=== PATIENT | male | born 1945 | race Caucasian/White ===

== ENCOUNTER → 2016-10-19 | Outpatient (CLI) | payer BC ==
[~2016-10-19] MED LIST: ALBU0.5N2; ASPI-232 PO; CRD4 PO; FLUT1INH INH; FLVHFA110; HYDC25 PO; METO50TA7 PO; MONT1TAB5 PO; PRT40
--- NOTE | 2016-10-19 16:50 | DIAGNOSTIC IMAGING REPORT ---
CHEST 2 VIEWS ROUTINE CLINICAL HISTORY: J45.909 Asthmatic [id number] COMPARISON STUDY: No previous studies for comparison. FINDINGS: The cardiac and mediastinal contours are normal. There is no evidence of focal pulmonary consolidation. There is no evidence of failure. There is a suspected trace right pleural effusion..[ IMPRESSION: Trace right pleural effusion. No evidence of failure. No evidence of focal pulmonary consolidation. Electronically signed by: James Patricia M.D. 10/19/2016 4:48 PM Dictated Date/Time: 10/19/2016 4:48 PM
== END | disposition home or self-care (01) ==
LOC: C.RAD 16:06
PROVIDERS: ATTEND Internal Medicine
DX: J45.909 Unspecified asthma, uncomplicated (principal)

== ENCOUNTER → 2017-04-21 | Outpatient (CLI) | payer BC ==
[2017-04-21 17:39] LABS: BASO % 1.1 %; BASO ABS # 0.08 K/uL (0-0.2); COMPLETE YES; EOS % 3.3 %; HEMATOCRIT 48.6 % (42-52); IG% 0.1 %; LYMPH % 21.6 %; LYMPH ABS # 1.56 K/uL (1.2-3.4); MEAN CELL VOLUME 75.1 fL (80-100); MEAN CORPUSCULAR HEMOGLOBIN 24.1 pg (25-34); MEAN CORPUSCULAR HGB CONC 32.1 g/dl (32-36); MEAN PLATELET VOLUME 10.5 fL (7.4-10.4); MONO % 7.8 %; NEUT % 66.1 %; PLATELET COUNT 344 K/uL (130-400); RED BLOOD COUNT 6.47 M/uL (4.7-6.1); WHITE BLOOD COUNT 7.21 K/uL (4.8-10.8)
[2017-04-21 17:44] LABS: URINE APPEARANCE CLEAR (CLEAR); URINE BILIRUBIN NEG (NEG); URINE COLOR YELLOW; URINE EPITHELIAL CELL AUTO 0-5 /lpf (0-5); URINE NITRITE NEG (NEG); URINE SPECIFIC GRAVITY 1.021 (1.000-1.030); UROBILINOGEN NEG (NEG); ZZUR CULT IF INDIC CLEAN CATCH NO
[2017-04-21 17:55] LABS: BLOOD UREA NITROGEN 22 mg/dl (7-18); BUN/CREATININE RATIO 20.2 (10-20); CALCIUM 8.8 mg/dl (8.5-10.1); CARBON DIOXIDE 29 mmol/L (21-32); CHLORIDE 106 mmol/L (98-107); GLUCOSE 89 mg/dl (70-99); POTASSIUM 4.1 mmol/L (3.5-5.1); SODIUM 140 mmol/L (136-145)
[2017-04-21 18:06] LABS: CHOLESTEROL 125 mg/dl (0-200); CHOLESTEROL/HDL RATIO 2.7; HDL CHOLESTEROL 46 mg/dl; LDL CHOLESTEROL CALCULATED 66 mg/dl; TRIGLYCERIDES 64 mg/dl (0-150); VERY LOW DENSITY LIPOPROT CALC 13 mg/dl
[2017-04-21 18:15] LABS: MANUAL MICROSCOPIC REQUIRED? NO; REVIEW REQ? NO
== END | disposition home or self-care (01) ==
LOC: C.LABBFT 11:19
PROVIDERS: ATTEND Internal Medicine
DX: E78.00 Pure hypercholesterolemia, unspecified (principal); I10 Essential (primary) hypertension; N40.0 Benign prostatic hyperplasia without lower urinary tract symptoms; R79.9 Abnormal finding of blood chemistry, unspecified; D75.1 Secondary polycythemia

== ENCOUNTER → 2017-04-23 | Outpatient (CLI) | payer BC ==
[2017-04-23 12:57] LABS: FERRITIN 6.1 ng/ml (8.0-388.0); THYROID STIMULATING HORMONE 14.1 uIu/ml (0.300-4.500)
== END | disposition home or self-care (01) ==
LOC: C.LABBFT 10:29
PROVIDERS: ATTEND Internal Medicine
DX: R94.6 Abnormal results of thyroid function studies (principal); D64.9 Anemia, unspecified

== ENCOUNTER → 2017-06-04 | Outpatient (CLI) | payer BC ==
[2017-06-04 10:34] LABS: THYROID STIMULATING HORMONE 8.16 uIu/ml (0.300-4.500)
== END | disposition home or self-care (01) ==
LOC: C.LAB 08:45
PROVIDERS: ATTEND Internal Medicine
DX: E03.9 Hypothyroidism, unspecified (principal)

== ENCOUNTER → 2017-06-18 | Outpatient (CLI) | payer BC | END | disposition home or self-care (01) | LOC: C.LABBFT 11:32 | PROVIDERS: ATTEND Urology | DX: R35.1 Nocturia (principal) ==

== ENCOUNTER → 2017-07-12 | Outpatient (CLI) | payer BC ==
[2017-07-12 12:50] LABS: THYROID STIMULATING HORMONE 9.05 uIu/ml (0.300-4.500)
== END | disposition home or self-care (01) ==
LOC: C.LABBFT 07:20
PROVIDERS: ATTEND Physician Assistant Medical
DX: E03.9 Hypothyroidism, unspecified (principal)

== ENCOUNTER → 2017-09-29 | Outpatient (CLI) | payer BC | END | disposition home or self-care (01) | LOC: C.LABBFT 09:41 | PROVIDERS: ATTEND Physician Assistant Medical | DX: E03.9 Hypothyroidism, unspecified (principal) ==

== ENCOUNTER → 2017-11-25 | Outpatient (CLI) | payer BC ==
[~2017-11-25] MED LIST changes: -METO50TA7 PO; +METO50TA8 PO
== END | disposition home or self-care (01) ==
LOC: C.LABBFT 09:25
PROVIDERS: ATTEND Physician Assistant Medical
DX: E03.9 Hypothyroidism, unspecified (principal)

== ENCOUNTER → 2017-12-31 | Outpatient (CLI) | payer BC | LOC: C.LABBFT 07:35 | PROVIDERS: ATTEND Physician Assistant Medical | DX: E03.9 Hypothyroidism, unspecified (principal) ==

== ENCOUNTER → 2018-01-26 | Outpatient (CLI) | payer BC | END | disposition home or self-care (01) | LOC: C.LABBFT 09:41 | PROVIDERS: ATTEND Urology | DX: R39.12 Poor urinary stream (principal) ==

== ENCOUNTER 2018-04-07 04:48 | Day surgery (SDC) | payer BC ==
--- NOTE | 2018-03-25 08:59 | PAT Medication Instructions ---
Service Date Mar 25, 2018. Current Home Medication List Albuterol Hfa (Ventolin Hfa), 2-4 PUFFS INH Q6H PRN for SOB/Wheezing Aspirin (Aspir-81), 81 MG PO QAM Celecoxib (Celebrex), 2 CAP PO QAM Ergocalciferol (Vitamin D 24560 Unit), 1 TAB PO WK Finasteride (Proscar), 5 MG PO HS Fluticasone Propionate (Flovent Hfa), 1 SPRAY RICHARD UD Hydrochlorothiazide (Hctz), 25 MG PO QAM Hydroxyurea (Hydrea Cap), 500 MG PO QAM Levothyroxine Sodium (Levothyroxine Sodium), 1 TAB PO QAM Metoprolol Succ (Toprol Xl) (Toprol-Xl), 50 MG PO HS Montelukast Sodium (Montelukast Sodium), 1 TAB PO HS Tamsulosin HCl (Tamsulosin HCl), 0.8 MG PO HS Medication Instructions For Your Scheduled Surgery - Check with surgeon for instructions: Celecoxib (Celebrex), 2 CAP PO QAM Aspirin (Aspir-81), 81 MG PO QAM Hydroxyurea (Hydrea Cap), 500 MG PO QAM - Hold the following medications the morning of surgery: Hydrochlorothiazide (Hctz), 25 MG PO QAM Ergocalciferol (Vitamin D 14406 Unit), 1 TAB PO WK - Take the following medications the morning of surgery with a sip of water: Albuterol Hfa (Ventolin Hfa), 2-4 PUFFS INH Q6H PRN for SOB/Wheezing (if needed) Fluticasone Propionate (Flovent Hfa), 1 SPRAY RICHARD UD Levothyroxine Sodium (Levothyroxine Sodium), 1 TAB PO QAM - Take the following medications as scheduled the night before surgery: Albuterol Hfa (Ventolin Hfa), 2-4 PUFFS INH Q6H PRN for SOB/Wheezing (if needed) Tamsulosin HCl (Tamsulosin HCl), 0.8 MG PO HS Metoprolol Succ (Toprol Xl) (Toprol-Xl), 50 MG PO HS Montelukast Sodium (Montelukast Sodium), 1 TAB PO HS Fluticasone Propionate (Flovent Hfa), 1 SPRAY RICHARD UD Finasteride (Proscar), 5 MG PO HS If you have any questions please call us at [phone] or [phone] or [phone]
--- NOTE | 2018-03-25 09:45 | DIAGNOSTIC IMAGING REPORT ---
CHEST 2 VIEWS ROUTINE CLINICAL HISTORY: Preoperative chest COMPARISON STUDY: 10/19/2016 FINDINGS: The cardiac and mediastinal contours are normal. There is no evidence of focal pulmonary consolidation. There is no evidence of failure. No pleural effusions are visualized.[ There is minimal left basilar atelectasis/scarring at the level the left cardiophrenic angle. IMPRESSION: No active disease in the chest. Electronically signed by: James Patricia M.D. 03/25/2018 9:43 AM Dictated Date/Time: 03/25/2018 9:43 AM
[~2018-04-07] VITALS: Ht 180.3 cm; Wt 100.5 kg
[~2018-04-07 04:48] MED LIST changes: -ALBU0.5N2; +CLB100 PO; -CRD4 PO; +ERGO500011 PO; +FINA5TAB PO; +FLM4 PO; -FLUT1INH INH; -FLVHFA110; +FLVHFA110 NAE; -HYDC25 PO; +HYDR25TA4 PO; +HYDR500C3 PO; +LEVO112T4 PO; -PRT40; +VNTHFA/IN INH
[2018-04-07] MEDS ORDERED: MULT-506 PO (05:28)
[2018-04-07 05:30] VITALS: BP 130/85; PULSE 62; TEMP 36.5; O2SAT 95; Ht 180.3 cm; Wt 100.5 kg
[2018-04-07] MEDS ORDERED: LACTATED RINGER'S 1000ML 1,000 ML IV SCH (06:00)
[2018-04-07] MEDS ORDERED: CIPROFLOXACIN / D5W 400 MG IV SCH (06:00)
[2018-04-07 06:13] LABS: BASO % 0.6 %; BASO ABS # 0.03 K/uL (0-0.2); HEMATOCRIT 41.3 % (42-52); HEMOGLOBIN 14.4 g/dL (14.0-18.0); IG# 0.02 K/uL (0.00-0.02); LYMPH % 25.6 %; MEAN CELL VOLUME 103.5 fL (80-100); MEAN CORPUSCULAR HEMOGLOBIN 36.1 pg (25-34); MEAN PLATELET VOLUME 10.1 fL (7.4-10.4); MONO % 10.5 %; MONO ABS # 0.53 K/uL (0.11-0.59); NEUT % 60.9 %; NEUT ABS # 3.09 K/uL (1.4-6.5); PLATELET COUNT 166 K/uL (130-400); RED CELL DISTRIBUTION WIDTH CV 12.7 % (11.5-14.5); RED CELL DISTRIBUTION WIDTH SD 47.8 fL (36.4-46.3); WHITE BLOOD COUNT 5.07 K/uL (4.8-10.8)
[2018-04-07 06:15] LABS: MEAN CORPUSCULAR HGB CONC 34.9 g/dl (32-36)
[2018-04-07] MEDS ORDERED: FENTANYL CITRATE INJ 50 MCG/1 ML 2 ML VIAL ONE (07:01)
--- NOTE | 2018-04-07 07:09 | History & Physical Bridge Note ---
H&P Re-Evaluation Bridge Note: I have examined the patient, reviewed the History & Physical and in the interval since the performance of the History & Physical I have noted the following changes of clinical significance: No changes noted
[2018-04-07] MEDS ORDERED: ONDANSETRON INJ 2 MG/ML 2 ML VIAL IV PRN (07:15)
[2018-04-07] MEDS ORDERED: ATROPINE SULFATE 0.1 MG/ML 5ML SYR IV PRN (07:15)
[2018-04-07] MEDS ORDERED: EpHEDrine SULFATE INJ 50 MG/ML AMP IV PRN (07:15)
[2018-04-07] MEDS ORDERED: FENTANYL CITRATE INJ 50 MCG/1 ML 2 ML VIAL IV PRN (07:15)
--- NOTE | 2018-04-07 07:24 | Discharge Instructions ---
Discharge Instructions Date of Service Apr 07, 2018. Admission Reason for Admission: Benign Prosate Hyperplasia Discharge Discharge Diagnosis / Problem: BPH s/p GLTURP Discharge Goals Goal(s): Improve function, Improve disease control, Therapeutic intervention Activity Recommendations Activity Limitations: as noted below Lifting Limitations: no more than 25 pounds, gradually increase as tolerated Exercise/Sports Limitations: rest today, gradually increase as tolerated May Resume Sexual Activity: when tolerated, after one week Shower/Bathe: tomorrow (no tub bath with gay) Driving or Machine Use: resume 1 day after discharge . Instructions / Follow-Up Instructions / Follow-Up In office as scheduled for removal of gay and postoperative visit. Current Hospital Diet Patient's current hospital diet: Discharge Diet Recommended Diet: Regular Diet (good fluid intake) Procedures Procedures Performed: Greenlight vaporization of prostate Pending Studies Studies pending at discharge: no Medical Emergencies . Who to Call and When: Medical Emergencies: If at any time you feel your situation is an emergency, please call 911 immediately. . Non-Emergent Contact Non-Emergency issues call your: Urologist Call Non-Emergent contact if: you have a fever, temperature is above 101, your pain is not controlled, your pain is worsening, your pain is unusual for you, your pain is concerning you, you have any medication questions . . "Provider Documentation" section prepared by Alejandro Padron. . [place] Drug Monitoring Program Search Results: patient reviewed within database, no issues identified
[2018-04-07] MEDS ORDERED: EpHEDrine SULFATE INJ 50 MG/ML AMP ONE (07:42)
[2018-04-07] MEDS ORDERED: ONDANSETRON INJ 2 MG/ML 2 ML VIAL ONE (07:42)
[2018-04-07] MEDS ORDERED: PROPOFOL IV EMULSION 10 MG/ML 20 ML VIAL ONE (07:42)
[2018-04-07] MEDS ORDERED: DEXAMETHASONE SOD INJ 4 MG/ML VIAL ONE (07:42)
[2018-04-07] MEDS ORDERED: LIDOCAINE HCL 2% 2 ML VIAL (20MG/ML) ONE (07:42)
[2018-04-07] MEDS ORDERED: BELLADONNA/OPIUM SUPP 60 MG SUPP PR ONE ×2 (07:54→07:58)
[2018-04-07] MEDS ORDERED: OXYC-57 PO (08:00)
[2018-04-07] MEDS ORDERED: PHEN-775 PO (08:00)
[2018-04-07] MEDS ORDERED: CIPR-255 PO (08:00)
--- NOTE | 2018-04-07 08:03 | [facility] Operative Report ---
Operative Report Operative Date Apr 07, 2018. Pre-Operative Diagnosis Benign Prostatic Hyperplasia Post-Operative Diagnosis Benign Prostatic Hyperplasia Procedure(s) Performed Greenlight vaporization of prostate Surgeon Dr Jerilyn Padron Jig And Fixture Builder Apprentice Surgeon(s) None Estimated Blood Loss None Findings Open fossa after 99,000 J of energy used with excellent hemostasis Specimens None Drains 20 Samoan Mcbride with 10 cc in the balloon Anesthesia Type General Complication(s) none Disposition yes Recovery Room / PACU Indications 72-year-old male with refractory voiding symptoms despite maximal medical therapy with Flomax and Proscar. Cystoscopy in the office is demonstrated obstructive prostate. After discussion of risks and benefits he is decided upon a greenlight vaporization of his prostate gland manage his disease. Please see H&P for further details. Intravenous ciprofloxacin used for antibiotic coverage and SCDs for DVT prophylaxis. Description of Procedure Patient was properly identified and brought into the operative suite after identification of appropriate consent in the chart. General anesthesia with laryngeal mask was initiated and patient was prepped and draped in the standard fashion for this procedure. Full timeout procedure was followed. Greenlight laser resectoscope was introduced into the bladder using a visual obturator under direct visualization demonstrating obstructive prostate gland with lateral lobe hypertrophy and some mild bladder neck elevation. Ureteral orifices were generously removed from the bladder neck. No intravesical lesions , papillary masses or calculi were appreciated. No strictures or intravesical tumors were noted. Using a side fire greenlight laser resectoscope between 80 and 140 W circumferential vaporization of the prostate gland was undertaken. Relaxing incisions were made at the 5 and 7 o'clock position at the bladder neck. Ureteral orifices were noted to be free of any injury at the end of the case. After approximately 99,000 J of energy were used the prostate was noted to be visually unobstructed with excellent hemostasis. After this was complete the bladder was partially distended and resectoscope was removed. 20 Samoan Mcbride catheter was placed with return of clear urine and irrigant. 10 cc of sterile water were placed in the balloon and belladonna and opium suppository was provided for additional postoperative analgesia. Anesthesia was reversed and patient was transferred to the recovery room in stable condition. Follow-up instructions: Patient will be discharged home with a Mcbride catheter in place. Outpatient trial of void is confirmed. Prescription for ciprofloxacin, Percocet and Pyridium as provided. Patient is to contact our service should he note any fevers, chills, nausea, vomiting or other difficulty in the postoperative period. I attest to the content of the Intraoperative Record and any orders documented therein. Any exceptions are noted below.
[2018-04-07 08:55] VITALS: BP 124/72; PULSE 66; TEMP 36.4; O2SAT 97
--- NOTE | 2018-04-07 09:05 | Anesthesiology Progress Note ---
Anesthesia Post Op Note Date & Time Apr 07, 2018 at 09:04 Vital Signs Pain Intensity: 4 Vital Signs Past 12 Hours Date Time Temp Pulse Resp B/P (MAP) Pulse Ox O2 Delivery O2 Flow Rate FiO2 04/07/18 08:50 36.6 94 Room Air 04/07/18 08:47 66 20 126/80 96 04/07/18 08:47 64 20 04/07/18 08:42 66 15 131/81 93 04/07/18 08:42 62 15 04/07/18 08:37 68 16 94 04/07/18 08:37 68 16 04/07/18 08:36 64 16 04/07/18 08:36 65 16 140/83 92 04/07/18 08:31 71 16 04/07/18 08:31 72 16 153/78 98 04/07/18 08:26 67 14 152/80 98 04/07/18 08:26 67 14 04/07/18 08:21 67 16 04/07/18 08:21 69 16 144/81 97 04/07/18 08:16 70 17 148/85 98 04/07/18 08:16 71 17 04/07/18 08:11 68 19 140/84 98 04/07/18 08:11 68 19 04/07/18 08:07 139/83 04/07/18 08:06 36.9 70 16 139/85 97 Oxymask 10 04/07/18 05:30 36.5 62 18 130/85 (100) 95 Room Air Notes Mental Status: alert / awake / arousable, participated in evaluation Pt Amnestic to Procedure: Yes Nausea / Vomiting: adequately controlled Pain: adequately controlled Airway Patency, RR, SpO2: stable & adequate BP & HR: stable & adequate Hydration State: stable & adequate Anesthetic Complications: no major complications apparent
[2018-04-07] MEDS ORDERED: NURSING VERBAL MED ORDER ONE (09:15)
[2018-04-07] MEDS ORDERED: OXYCODONE/ACETAMINOPHEN 5-325 TAB ONE (09:16)
[2018-04-07] MEDS ORDERED: PHENAZOPYRIDINE HCL 200 MG TAB PO ONE (09:16)
[2018-04-07 09:24] VITALS: BP 144/78; PULSE 66; O2SAT 96
[2018-04-07 09:55] VITALS: BP 136/66; PULSE 63; TEMP 36.6; O2SAT 96
== END 2018-04-07 10:10 | disposition home or self-care (01) ==
LOC: C.ACU 04:48
PROVIDERS: ATTEND Urology
DX: N40.0 Benign prostatic hyperplasia without lower urinary tract symptoms (principal); J45.909 Unspecified asthma, uncomplicated; E66.9 Obesity, unspecified; K21.9 Gastro-esophageal reflux disease without esophagitis; E78.00 Pure hypercholesterolemia, unspecified; I10 Essential (primary) hypertension; E03.9 Hypothyroidism, unspecified; G47.33 Obstructive sleep apnea (adult) (pediatric); D45 Polycythemia vera; E55.9 Vitamin D deficiency, unspecified; Z82.49 Family history of ischemic heart disease and other diseases of the circulatory system; Z80.42 Family history of malignant neoplasm of prostate; Z79.899 Other long term (current) drug therapy; Z79.82 Long term (current) use of aspirin

== ENCOUNTER 2020-08-01 14:18 | Inpatient (IN) ==
[2020-08-01] MEDS ORDERED: ACETAMINOPHEN 500 MG TAB PO STA (14:43)
[2020-08-01] MEDS ORDERED: DEXAMETHASONE SOD INJ 10 MG/ML VIAL IV ONE (14:43)
[2020-08-01] MEDS ORDERED: SODIUM CHLORIDE 0.9% 1000ML 1,000 ML IV SCH (14:45)
--- NOTE | 2020-08-01 14:48 | Emergency Department Note ---
Impression & Plan COVID-19, Acute respiratory failure with hypoxemia ED Provider Note NAME: RUTH DUMONT AGE: 74 SEX: M : 1945 ARRIVES VIA: Ambulance INFORMANT: Patient, ED PROVIDER(S): Mariano Curran MD Chief Complaint: Shortness of breath HPI: Patient does present with worsening shortness of breath. The patient did h ave upper respiratory type symptoms beginning on July 24. The patient did have a telephone consult and Covid testing completed at that time. The patient was prescribed a course of antibiotics of Augmentin. Patient is have a known history of asthma but is a non-smoker. The patient was notified of a positive Covid test on July 26 and the patient was given nebulized medications. The patient is unsure as to whether or not he had any steroids. Patient did state that last night the patient does live by himself he got up to use the bathroom and subsequently had a syncopal event. The patient woke up. The patient denies any tongue biting or incontinence. Patient is unsure as to whether or not he had presyncopal symptoms before his episode of syncope. The patient denies any headache chest pain abdominal pain extremity pain or back pain. Patient has had a cough but it has been nonproductive. The patient has had increasing weakness, fatigue, shortness of breath but without chest pain. Patient states he has had decreased appetite. ROS: See HPI for pertinent positives and negatives. A total of 10 systems were reviewed and otherwise negative. Past medical history: See below Surgical history: See below Social history: See below Physical Exam: GENERAL: Mildly ill in appearance, wearing glasses and a mask. Nasal cannula in place. EYE EXAM: Normal conjunctiva. PERRL, no anisocoria and EOM's grossly intact w/o pain. Small abrasion to the left supraorbital area with no TTP or obvious laceration. Visual acuity is grossly intact. Head: Normocephalic atraumatic without any pain. NECK: Supple, no nuchal rigidity, no adenopathy, non-tender. No signs of meningismus. No midline C-spine TTP. LUNGS: Bibasilar crackles noted without rhonchi or wheezing. HEART: NSR, no MRG. ABDOMEN: Abdomen soft, non-tender, normo-active bowel sounds, no masses, no rebound or guarding. BACK: No CVA TTP. SKIN: No rashes and no bruising. UPPER EXTREMITIES: Upper extremities are grossly normal. LOWER EXTREMITIES: Grossly normal, no edema. NEURO EXAM: A&O x3, cranial nerves II-XII grossly intact, normal speech, moves all 4 extremities on command w/o issue. Differential diagnoses: Reactive airway disease, pneumonia, pneumothorax, COPD, CHF, infections, cardiac ischemia, pulmonary embolism, musculoskeletal, gastrointestinal, as well as other pathologies. Course: Patient was seen and evaluated the bedside. Full history physical exam was performed. EKG: Indication: Shortness of breath/syncope Sinus tachycardia, rate of 102, normal intervals, normal axis, no obvious ST c hanges. PVC noted. Imaging Studies: Radiology results as stated below per my review in the radiologist's interpretation: XR chest 1V portable HISTORY: 74 years-old Male SEPSIS acute sepsis COMPARISON: Chest radiographs 05/01/2020 TECHNIQUE: Portable AP view of the chest FINDINGS: The cardiomediastinal and hilar silhouettes are within normal limits. No pneumothorax, pleural effusion, overt pulmonary edema or airspace consolidation typical for pneumonia. Chronic interstitial coarsening of the lung bases. Linear scarring/atelectasis of the lateral left midlung. Degenerative changes of the s houlders and spine. IMPRESSION: No acute process. ACT 112: Negative or not required by law. The above report was generated using voice recognition software. It may contain grammatical, syntax or spelling errors. Electronically signed by: Silas Grayson M.D. 08/01/2020 3:52 PM Dictated: 08/01/201549Transcribed: 08/01/201549 Cardiac monitoring: An order was placed for continuous cardiac monitoring. The monitor shows a rate of 99 with sinus rhythm. MDM: Patient does present with increasing fatigue shortness of breath and recent Covid positive. In the room the patient was turned off of oxygen and the patient did have vital signs noted to be hypoxic at 86%. The patient did have a syncopal event but the patient has no signs or stigmata of DVT on exam. Patient does have some bibasilar crackles. The patient was advised to try turning every so often to take larger deeper breaths help expand the lungs. The patient was placed on supplemental oxygen blood work was obtained along with an EKG troponin chest x-ray dexamethasone IV fluids and Tylenol as the patient did have a temperature of 38.2. Patient has normal white count and H&H. Kidney function is virtually at basel ine. Borderline low calcium. Procalcitonin is not elevated. Chest x-ray is negative. Given the patient's oxygen requirement Covid status I did speak the on-call hospitalist and the patient was admitted to the medicine service by Dr. Florentin MD. Critical Care: I have personally spent 43 minutes of critical care time in direct management of this patient. This includes bedside care, interpretation of diagnostic studies, and testing, discussion with consultants, patient, and family members, and other require inpatient management activities. This 43 minutes is in excess of all separately billable procedures. Past Med/Surg History Medical History (Updated 08/01/20 @ 21:57 by Mariano Curran MD) Allergic rhinitis Asthma exertion induced--inhalers/nebulizer prn BPH with obstruction/lower urinary tract symptoms Chronic back pain Degenerative disc disease Disc degeneration, lumbar Diverticulosis hx GERD (gastroesophageal reflux disease) ocasional Hearing deficit Hypercholesterolemia no medications Hypertension Hypothyroidism Polycythemia vera On Hydroxyurea Vitamin D deficiency Surgical History History of arthroscopy of right shoulder History of bilateral cataract extraction History of colonoscopy History of rhinoplasty History of total right knee replacement (TKR) Hx of transurethral resection of prostate Family History Sister Hypertension Father Hypertension Mother Hypertension Brother Prostate cancer Other No pertinent family history in first degree relatives Social History Smoking Status: Never smoker Second Hand Exposure: No; Hx Alcohol Use: Yes Alcohol type: beer and hard liquor Hx Substance Use: No Preferred Language: Belarusian Communication Ability: Effective 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: No Beliefs That Will Affect Care: None Current Living Situation: Alone Feels Safe at Home: Yes Assistive Devices: Glasses, Hearing Aid - Bilateral and Nebulizer Allergies Allergies Allergy/AdvReac Type Severity Reaction Status Date / Time irbesartan Allergy Severe ANGIOEDEMA Verified 08/01/20 15:50 amlodipine Allergy Unknown ITCHING, Verified 08/01/20 15:50 RASH ON ANKLES Home Meds Home Medications Medication Instructions Recorded Confirmed albuterol sulfate 2.5 mg INHALATION Q4 PRN 07/28/18 08/01/20 albuterol sulfate [ProAir HFA] 2 puff INHALATION Q4 PRN 07/28/18 08/01/20 aspirin 81 mg PO QAM 07/28/18 08/01/20 hydroxyurea 500 mg PO QAM 07/28/18 08/01/20 Vitamin D3 200mcg Gummies 400 mcg PO QAM 04/20/20 08/01/20 celecoxib 200 mg PO QAM PRN 04/20/20 08/01/20 finasteride 5 mg PO HS 04/20/20 08/01/20 hydrochlorothiazide 25 mg PO QAM 04/20/20 08/01/20 hydroxychloroquine 200 mg PO QAM 04/20/20 08/01/20 metoprolol succinate 50 mg PO PM 04/20/20 08/01/20 montelukast 10 mg PO PM 04/20/20 08/01/20 levothyroxine [Synthroid] 125 mcg PO QAM 04/30/20 08/01/20 ibuprofen [Advil] 400 mg PO Q6H PRN 08/01/20 08/01/20 Previous Rx's Medication Instructions Recorded miscellaneous medical supply #240 ea 04/04/19 fluticasone propionate 50 2 spray INTRANASAL DAILY PRN #47.4 05/18/19 mcg/actuation nasal gm spray,suspension Results & Data (ED) Vital Signs Vital Signs - 24 hr 08/01/20 14:42 08/01/20 14:48 08/01/20 15:30 Temperature 38.2 C H Temperature Source Oral Pulse Rate 101 H 100 H Pulse Rate from SpO2 Sensor 96 H Respiratory Rate 18 23 Blood Pressure 134/69 Blood Pressure Mean 89 Pulse Oximetry 86 L 94 95 Oxygen Delivery Method Room Air Nasal Cannula Oxygen Flow Rate 2 Sepsis Recent Fever Within 48 Hours No Sepsis New/Unexplained Change in Mental Status N/A Sepsis Action Taken by Nursing Physician Notified Oxygen Flow Rate - Titration 2 Pulse Oximetry Post Tiitration 94 08/01/20 16:00 08/01/20 16:01 08/01/20 16:30 Temperature Temperature Source Pulse Rate 93 H 93 H 94 H Pulse Rate from SpO2 Sensor 92 H 92 H 89 Respiratory Rate 21 14 21 Blood Pressure 134/64 139/80 Blood Pressure Mean 79 89 Pulse Oximetry 95 95 97 Oxygen Delivery Method Oxygen Flow Rate Sepsis Recent Fever Within 48 Hours Sepsis New/Unexplained Change in Mental Status Sepsis Action Taken by Nursing Oxygen Flow Rate - Titration Pulse Oximetry Post Tiitration 08/01/20 16:31 08/01/20 17:00 08/01/20 17:01 Temperature Temperature Source Pulse Rate 94 H 89 89 Pulse Rate from SpO2 Sensor 88 Respiratory Rate 17 23 20 Blood Pressure 148/81 H Blood Pressure Mean 90 Pulse Oximetry 97 Oxygen Delivery Method Oxygen Flow Rate Sepsis Recent Fever Within 48 Hours Sepsis New/Unexplained Change in Mental Status Sepsis Action Taken by Nursing Oxygen Flow Rate - Titration Pulse Oximetry Post Tiitration 08/01/20 17:30 08/01/20 17:31 08/01/20 18:00 Temperature Temperature Source Pulse Rate 82 86 82 Pulse Rate from SpO2 Sensor Respiratory Rate 26 H 21 20 Blood Pressure 149/79 H 146/79 H Blood Pressure Mean 93 89 Pulse Oximetry Oxygen Delivery Method Nasal Cannula Oxygen Flow Rate 2.5 Sepsis Recent Fever Within 48 Hours Sepsis New/Unexplained Change in Mental Status Sepsis Action Taken by Nursing Oxygen Flow Rate - Titration Pulse Oximetry Post Tiitration 08/01/20 18:01 08/01/20 18:30 08/01/20 18:31 Temperature Temperature Source Pulse Rate 86 78 77 Pulse Rate from SpO2 Sensor Respiratory Rate 22 20 22 Blood Pressure 146/75 H Blood Pressure Mean 81 Pulse Oximetry Oxygen Delivery Method Oxygen Flow Rate Sepsis Recent Fever Within 48 Hours Sepsis New/Unexplained Change in Mental Status Sepsis Action Taken by Nursing Oxygen Flow Rate - Titration Pulse Oximetry Post Tiitration 08/01/20 19:00 08/01/20 19:01 08/01/20 19:30 Temperature Temperature Source Pulse Rate 77 76 74 Pulse Rate from SpO2 Sensor Respiratory Rate 19 21 21 Blood Pressure 137/75 156/73 H Blood Pressure Mean 84 105 Pulse Oximetry Oxygen Delivery Method Oxygen Flow Rate Sepsis Recent Fever Within 48 Hours Sepsis New/Unexplained Change in Mental Status Sepsis Action Taken by Nursing Oxygen Flow Rate - Titration Pulse Oximetry Post Tiitration Home Medications Current Medication List: was personally reviewed by me Laboratory Data Attestation: I reviewed the patient's lab results. Result diagrams: 08/01/20 14:55 08/01/20 14:55 Lab Results 08/01/20 08/01/20 08/01/20 Range/Units 14:55 14:55 14:55 WBC 5.37 (4.8-10.8) K/uL RBC 4.55 L (4.7-6.1) M/uL Hgb 16.1 (14.0-18.0) g/dL Hct 46.7 (42-52) % MCV 102.6 H (80-100) fL MCH 35.4 H (25-34) pg MCHC 34.5 (32-36) g/dL RDW Std Deviation 55.1 H (36.4-46.3) fL RDW Coeff of Richard 14.5 (11.5-14.5) % Plt Count 208 (130-400) K/uL MPV 11.3 H (7.4-10.4) fL Immature Gran % (Auto) 0.4 % Neut % (Auto) 75.6 % Lymph % (Auto) 15.8 % Garrard % (Auto) 8.0 % Eos % (Auto) 0.0 % Baso % (Auto) 0.2 % Neut # (Auto) 4.06 (1.4-6.5) K/uL Lymph # (Auto) 0.85 L (1.2-3.4) K/uL Garrard # (Auto) 0.43 (0.11-0.59) K/uL Eos # (Auto) 0.00 (0-0.5) K/uL Baso # (Auto) 0.01 (0-0.2) K/uL Immature Gran # (Auto) 0.02 (0.00-0.02) K/uL PT 12.4 H (9.0-12.0) Seconds INR 1.2 H (0.9-1.1) APTT 41.6 H (21.0-31.0) Seconds PTT Ratio 1.5 VBG pH (7.36-7.41) VBG pCO2 (38-50) mmHg VBG pO2 mmHg VBG HCO3 mmol/L VBG O2 Saturation % VBG Base Excess mEq/L Barometric Pressure mm/Hg Sodium 135 L (136-145) mmol/L Potassium 3.5 (3.5-5.1) mmol/L Chloride 101 (98-107) mmol/L Carbon Dioxide 26 (21-32) mmol/L Anion Gap 9.0 (3-11) BUN 30 H (7-18) mg/dl Creatinine 1.63 H (0.6-1.4) mg/dl Est Cr Clr Drug Dosing 45.1 ml/min Est GFR ( Amer) 46.7 Est GFR (Non-Af Amer) 40.3 BUN/Creatinine Ratio 18.3 (10-20) Glucose 101 H (70-99) mg/dl Lactate (0.4-2.0) mmol/L Calcium 8.4 L (8.5-10.1) mg/dl Magnesium 2.2 (1.8-2.4) mg/dl Total Bilirubin 2.0 H (0.2-1) mg/dl AST 34 (15-37) U/L ALT 25 (12-78) U/L Alkaline Phosphatase 58 (45-117) U/L Troponin I 0.025 (0-0.045) ng/ml Total Protein 7.6 (6.4-8.2) gm/dl Albumin 3.6 (3.4-5.0) gm/dl Globulin 4.0 (2.5-4.0) gm/dl Albumin/Globulin Ratio 0.9 (0.9-2) Procalcitonin (0-0.5) ng/ml 08/01/20 08/01/20 08/01/20 Range/Units 14:55 14:55 14:55 WBC (4.8-10.8) K/uL RBC (4.7-6.1) M/uL Hgb (14.0-18.0) g/dL Hct (42-52) % MCV (80-100) fL MCH (25-34) pg MCHC (32-36) g/dL RDW Std Deviation (36.4-46.3) fL RDW Coeff of Richard (11.5-14.5) % Plt Count (130-400) K/uL MPV (7.4-10.4) fL Immature Gran % (Auto) % Neut % (Auto) % Lymph % (Auto) % Garrard % (Auto) % Eos % (Auto) % Baso % (Auto) % Neut # (Auto) (1.4-6.5) K/uL Lymph # (Auto) (1.2-3.4) K/uL Garrard # (Auto) (0.11-0.59) K/uL Eos # (Auto) (0-0.5) K/uL Baso # (Auto) (0-0.2) K/uL Immature Gran # (Auto) (0.00-0.02) K/uL PT (9.0-12.0) Seconds INR (0.9-1.1) APTT (21.0-31.0) Seconds PTT Ratio VBG pH 7.42 H (7.36-7.41) VBG pCO2 41 (38-50) mmHg VBG pO2 27 mmHg VBG HCO3 26 mmol/L VBG O2 Saturation < 60.0 % VBG Base Excess 1.6 mEq/L Barometric Pressure 742.6 mm/Hg Sodium (136-145) mmol/L Potassium (3.5-5.1) mmol/L Chloride (98-107) mmol/L Carbon Dioxide (21-32) mmol/L Anion Gap (3-11) BUN (7-18) mg/dl Creatinine (0.6-1.4) mg/dl Est Cr Clr Drug Dosing ml/min Est GFR ( Amer) Est GFR (Non-Af Amer) BUN/Creatinine Ratio (10-20) Glucose (70-99) mg/dl Lactate 2.0 (0.4-2.0) mmol/L Calcium (8.5-10.1) mg/dl Magnesium (1.8-2.4) mg/dl Total Bilirubin (0.2-1) mg/dl AST (15-37) U/L ALT (12-78) U/L Alkaline Phosphatase (45-117) U/L Troponin I (0-0.045) ng/ml Total Protein (6.4-8.2) gm/dl Albumin (3.4-5.0) gm/dl Globulin (2.5-4.0) gm/dl Albumin/Globulin Ratio (0.9-2) Procalcitonin < 0.05 (0-0.5) ng/ml Administered Medications Discontinued Medications Acetaminophen (Acetaminophen 500 Mg Tab) 1,000 mg PO NOW STA Stop: 08/01/20 14:44 Last Admin: 08/01/20 14:52 Dose: 1,000 mg Documented by: [id number] Dexamethasone (Dexamethasone Sod Inj 10 Mg/Ml Vial) 6 mg IV NOW ONE Stop: 08/01/20 14:44 Last Admin: 08/01/20 14:52 Dose: 6 mg Documented by: [id number] Sodium Chloride (Nss 1000ml) 1,000 mls @ 999 mls/hr IV .Q1H1M MARGI Stop: 08/01/20 15:45 Last Infusion: 08/01/20 15:55 Dose: 0 mls/hr Documented by: [id number] Admin: 08/01/20 14:53 Dose: 999 mls/hr Documented by: [id number] Acetaminophen (Ofirmev) 65 mls @ 200 mls/hr IV NOW ONE; Protocol Stop: 08/01/20 15:19 Last Infusion: 08/01/20 16:36 Dose: 0 mls/hr Documented by: [id number] Admin: 08/01/20 16:09 Dose: 200 mls/hr Documented by: [id number] Ondansetron HCl (Ondansetron Inj 2 Mg/Ml 2 Ml Vial) 4 mg IV NOW STA Stop: 08/01/20 15:01 Last Admin: 08/01/20 16:09 Dose: 4 mg Documented by: [id number] Discharge Plan Visit Data Chief Complaint: Shortness of Breath/Dyspnea Stated Complaint: + covid 07/24, syncopal episode, increase sob ED Provider: Mariano Curran Discharge Problem: COVID-19, Acute respiratory failure with hypoxemia Patient Disposition: Admitted As Inpatient Discharge Instructions Interventions: ED Discharge Assessment Last Done: 08/01/20 20:33
[2020-08-01] MEDS ORDERED: ACETAMINOPHEN 65 ML IV ONE (15:00)
[2020-08-01] MEDS ORDERED: ONDANSETRON INJ 2 MG/ML 2 ML VIAL IV STA (15:00)
[2020-08-01 15:11] LABS: Basophils # (auto) 0.01 K/uL (0-0.2); Basophils % (auto) 0.2 %; Hematocrit (blood only) 46.7 % (42-52); Hemoglobin 16.1 g/dL (14.0-18.0); Immature Granulocytes # (auto) 0.02 K/uL (0.00-0.02); Immature Granulocytes % (auto) 0.4 %; Lymphocytes # (auto) 0.85 K/uL (1.2-3.4); Lymphocytes % (auto) 15.8 %; Mean Corpuscular Hemoglobin 35.4 pg (25-34); Mean Corpuscular Hgb Conc 34.5 g/dL (32-36); Mean Corpuscular Volume 102.6 fL (80-100); Mean Platelet Volume 11.3 fL (7.4-10.4); Monocytes # (auto) 0.43 K/uL (0.11-0.59); Neutrophils # (auto) 4.06 K/uL (1.4-6.5); Neutrophils % (auto) 75.6 %; Platelet Count 208 K/uL (130-400); RDW Coefficient of Variation 14.5 % (11.5-14.5); RDW Standard Deviation 55.1 fL (36.4-46.3); Red Blood Count 4.55 M/uL (4.7-6.1); White Blood Count 5.37 K/uL (4.8-10.8)
[2020-08-01 15:16] LABS: Base Excess VBG 1.6 mEq/L; HCO3 VBG 26 mmol/L; PCO2 VBG 41 mmHg (38-50); PO2 VBG 27 mmHg; pH VBG 7.42 (7.36-7.41)
[2020-08-01 15:17] LABS: Oxygen Saturation VBG < 60.0 %
[2020-08-01 15:22] LABS: INR 1.2 (0.9-1.1); Partial Thromboplastin Ratio 1.5; Partial Thromboplastin Time 41.6 Seconds (21.0-31.0); Prothrombin Time 12.4 Seconds (9.0-12.0)
[2020-08-01 15:27] LABS: Albumin Level 3.6 gm/dl (3.4-5.0); BUN Creatinine Ratio 18.3 (10-20); Calcium 8.4 mg/dl (8.5-10.1); Creatinine Clr Calc Pharmacy 45.1 ml/min; Est GFR (African American) 46.7; Est GFR (Non-African American) 40.3; Magnesium 2.2 mg/dl (1.8-2.4); Potassium 3.5 mmol/L (3.5-5.1)
[2020-08-01 15:32] LABS: Albumin Globulin Ratio 0.9 (0.9-2); Total Protein 7.6 gm/dl (6.4-8.2); Troponin I 0.025 ng/ml (0-0.045)
--- NOTE | 2020-08-01 15:54 | XRay Report ---
XR chest 1V portable HISTORY: 74 years-old Male SEPSIS acute sepsis COMPARISON: Chest radiographs 05/01/2020 TECHNIQUE: Portable AP view of the chest FINDINGS: The cardiomediastinal and hilar silhouettes are within normal limits. No pneumothorax, pleural effusi on, overt pulmonary edema or airspace consolidation typical for pneumonia. Chronic interstitial coars ening of the lung bases. Linear scarring/atelectasis of the lateral left midlung. Degenerative change s of the shoulders and spine. IMPRESSION: No acute process. ACT 112: Negative or not required by law. The above report was generated using voice recognition software. It may contain grammatical, syntax o r spelling errors. Electronically signed by: Silas Grayson M.D. 08/01/2020 3:52 PM
--- NOTE | 2020-08-01 19:51 | History & Physical Report ---
Date of Service August 01, 2020 Assessment & Plan (1) Pneumonia due to COVID-19 virus: Pneumonia due to COVID-19 virus with hypoxia- Decadron 6 mg IV daily Convalescent plasma Remdesivir IV per protocol Ventolin HFA 2 puffs 4 times daily as needed Ceftriaxone 1 g IV daily Azithromycin 5 mg IV daily Present on Admission?: Yes (2) Hypothyroidism: Continue levothyroxine 25 mcg daily Present on Admission?: Yes (3) Hypertension: Continue metoprolol tartrate 50 mg p.o. daily and aspirin 81 mg daily. Hold HCTZ Present on Admission?: Yes (4) Asthma: (5) Polycythemia vera: Continue hydroxyurea and hydroxychloroquine Present on Admission?: Yes History of Present Illness Chief Complaint: The patient presents with worsening shortness of breath over the past 6 days, having been diagnosed with COVID-19 on 07/26, after having the Covid test performed on 07/24 Primary Care Provider: Umberto Bravo MD The patient is a 74-year-old male with a past medical history including allergic rhinitis, asthma, BPH with LUTS, lumbar degenerative disc disease, diverticulosis, GERD, hypercholesterolemia, hypertension, hypothyroidism, organic impotence, mild obstructive sleep apnea, polycythemia vera and vitamin D deficiency. The patient had initially undergone a telephone conference, and a Covid test was ordered and he was placed on an empiric course with Augmentin. The patient also reports a brief syncopal episode as he was getting up from a seated position. He does not have any of symptoms related to seizures. He has had decreased oral intake over the past several days because of symptoms as noted. He does also report some occasional loose stools that are nonbloody Allergies Allergy/AdvReac Type Severity Reaction Status Date / Time irbesartan Allergy Severe ANGIOEDEMA Verified 08/01/20 15:50 amlodipine Allergy Unknown ITCHING, Verified 08/01/20 15:50 RASH ON ANKLES Home Medications Medication Instructions Recorded Confirmed Type albuterol sulfate 2.5 mg INHALATION Q4 PRN 07/28/18 08/01/20 History albuterol sulfate [ProAir HFA] 2 puff INHALATION Q4 PRN 07/28/18 08/01/20 Histor y aspirin 81 mg PO QAM 07/28/18 08/01/20 History hydroxyurea 500 mg PO QAM 07/28/18 08/01/20 History miscellaneous medical supply #240 ea 04/04/19 05/21/20 Rx fluticasone propionate 50 2 spray INTRANASAL DAILY PRN #47.4 05/18/19 08/01/20 Rx mcg/actuation nasal gm spray,suspension Vitamin D3 200mcg Gummies 400 mcg PO QAM 04/20/20 08/01/20 History celecoxib 200 mg PO QAM PRN 04/20/20 08/01/20 History finasteride 5 mg PO HS 04/20/20 08/01/20 History hydrochlorothiazide 25 mg PO QAM 04/20/20 08/01/20 History hydroxychloroquine 200 mg PO QAM 04/20/20 08/01/20 History metoprolol succinate 50 mg PO PM 04/20/20 08/01/20 History montelukast 10 mg PO PM 04/20/20 08/01/20 History levothyroxine [Synthroid] 125 mcg PO QAM 04/30/20 08/01/20 History ibuprofen [Advil] 400 mg PO Q6H PRN 08/01/20 08/01/20 History Past Med/Surg History Medical History (Updated 08/01/20 @ 19:48 by Moses Kent MD) Allergic rhinitis Asthma exertion induced--inhalers/nebulizer prn BPH with obstruction/lower urinary tract symptoms Chronic back pain Degenerative disc disease Disc degeneration, lumbar Diverticulosis hx GERD (gastroesophageal reflux disease) ocasional Hearing deficit Hypercholesterolemia no medications Hypertension Hypothyroidism Polycythemia vera On Hydroxyurea Vitamin D deficiency Surgical History History of arthroscopy of right shoulder History of bilateral cataract extraction History of colonoscopy History of rhinoplasty History of total right knee replacement (TKR) Hx of transurethral resection of prostate Family History Sister Hypertension Father Hypertension Mother Hypertension Brother Prostate cancer Other No pertinent family history in first degree relatives Social History Smoking Status: Never smoker Second Hand Exposure: No; Hx Alcohol Use: Yes Alcohol type: beer and hard liquor Hx Substance Use: No Preferred Language: Nepali Communication Ability: Effective Bus Info Consultant Required: No Beliefs That Will Affect Care: None Current Living Situation: Alone Feels Safe at Home: Yes Assistive Devices: Glasses, Hearing Aid - Bilateral and Nebulizer Review of Systems Review of Systems: The patient denies chest pain, palpitations, lower extremity swelling, sore throat, fevers, chills, sweats, nausea, vomiting, constipation, abdominal pain, pelvic pain, blood in urine or stool, dysuria, urinary frequency or urgency, lightheadedness, dizziness, headache, memory loss, loss of consciousness, rash, abnormal bruising or bleeding, imbalance, focal or generalized weakness, numbness or tingling in arms or legs, generalized arthralgias or myalgias, back or neck pain, or night sweats. The review of systems is otherwise negative other than for that already noted above, and at least 10 systems have been reviewed. Physical Exam Physical Exam: The patient is awake, alert and oriented 3, well developed and well nourished, normocephalic and atraumatic, lying in bed and in no acute distress. HEENT--PERRL, EOMI, mucous membranes and oropharynx dry. Neck--supple. No JVD. No bruits. Thyroid normal, trachea midline, no adenopathy. Heart--normal S1 and S2. No murmurs, rubs or gallops. Lungs--clear bilaterally, no respiratory distress. No accessory muscle use Extremities--no cyanosis or clubbing. No edema. Dermatologic--normal skin turgor, normal color, no abnormal lymph nodes, no rash. Neurologic--cranial nerves II through XII grossly intact. Rheumatologic--normal range of motion. Psychiatric--normal affect. Results & Data Results & Data ([facility]) Vital Signs (Past 12 Hours) Vital Signs Temp Pulse Resp BP Pulse Ox 08/01/20 19:01 76 21 08/01/20 19:00 77 19 137/75 08/01/20 18:31 77 22 08/01/20 18:30 78 20 146/75 H 08/01/20 18:01 86 22 08/01/20 18:00 82 20 146/79 H 08/01/20 17:31 86 21 08/01/20 17:30 82 26 H 149/79 H 08/01/20 17:01 89 20 08/01/20 17:00 89 23 148/81 H 08/01/20 16:31 94 H 17 97 08/01/20 16:30 94 H 21 139/80 97 08/01/20 16:01 93 H 14 95 08/01/20 16:00 93 H 21 134/64 95 08/01/20 15:30 100 H 23 134/69 95 08/01/20 14:48 94 08/01/20 14:42 100.8 F H 101 H 18 86 L Laboratory Results Laboratory Results WBC 5.37 K/uL (4.8-10.8) 08/01/20 14:55 RBC 4.55 M/uL (4.7-6.1) L 08/01/20 14:55 Hgb 16.1 g/dL (14.0-18.0) 08/01/20 14:55 Hct 46.7 % (42-52) 08/01/20 14:55 MCV 102.6 fL (80-100) H 08/01/20 14:55 MCH 35.4 pg (25-34) H 08/01/20 14:55 MCHC 34.5 g/dL (32-36) 08/01/20 14:55 RDW Std Deviation 55.1 fL (36.4-46.3) H 08/01/20 14:55 RDW Coeff of Richard 14.5 % (11.5-14.5) 08/01/20 14:55 Plt Count 208 K/uL (130-400) 08/01/20 14:55 MPV 11.3 fL (7.4-10.4) H 08/01/20 14:55 Immature Gran % (Auto) 0.4 % 08/01/20 14:55 Neut % (Auto) 75.6 % 08/01/20 14:55 Lymph % (Auto) 15.8 % 08/01/20 14:55 [place] % (Auto) 8.0 % 08/01/20 14:55 Eos % (Auto) 0.0 % 08/01/20 14:55 Baso % (Auto) 0.2 % 08/01/20 14:55 Neut # (Auto) 4.06 K/uL (1.4-6.5) 08/01/20 14:55 Lymph # (Auto) 0.85 K/uL (1.2-3.4) L 08/01/20 14:55 [place] # (Auto) 0.43 K/uL (0.11-0.59) 08/01/20 14:55 Eos # (Auto) 0.00 K/uL (0-0.5) 08/01/20 14:55 Baso # (Auto) 0.01 K/uL (0-0.2) 08/01/20 14:55 Immature Gran # (Auto) 0.02 K/uL (0.00-0.02) 08/01/20 14:55 PT 12.4 Seconds (9.0-12.0) H 08/01/20 14:55 INR 1.2 (0.9-1.1) H 08/01/20 14:55 APTT 41.6 Seconds (21.0-31.0) H 08/01/20 14:55 PTT Ratio 1.5 08/01/20 14:55 VBG pH 7.42 (7.36-7.41) H 08/01/20 14:55 VBG pCO2 41 mmHg (38-50) 08/01/20 14:55 VBG pO2 27 mmHg 08/01/20 14:55 VBG HCO3 26 mmol/L 08/01/20 14:55 VBG O2 Saturation < 60.0 % 08/01/20 14:55 VBG Base Excess 1.6 mEq/L 08/01/20 14:55 Barometric Pressure 742.6 mm/Hg 08/01/20 14:55 Sodium 135 mmol/L (136-145) L 08/01/20 14:55 Potassium 3.5 mmol/L (3.5-5.1) 08/01/20 14:55 Chloride 101 mmol/L (98-107) 08/01/20 14:55 Carbon Dioxide 26 mmol/L (21-32) 08/01/20 14:55 Anion Gap 9.0 (3-11) 08/01/20 14:55 BUN 30 mg/dl (7-18) H 08/01/20 14:55 Creatinine 1.63 mg/dl (0.6-1.4) H 08/01/20 14:55 Est Cr Clr Drug Dosing 45.1 ml/min 08/01/20 14:55 Est GFR ( Amer) 46.7 08/01/20 14:55 Est GFR (Non-Af Amer) 40.3 08/01/20 14:55 BUN/Creatinine Ratio 18.3 (10-20) 08/01/20 14:55 Glucose 101 mg/dl (70-99) H 08/01/20 14:55 Lactate 2.0 mmol/L (0.4-2.0) 08/01/20 14:55 Calcium 8.4 mg/dl (8.5-10.1) L 08/01/20 14:55 Magnesium 2.2 mg/dl (1.8-2.4) 08/01/20 14:55 Total Bilirubin 2.0 mg/dl (0.2-1) H 08/01/20 14:55 AST 34 U/L (15-37) 08/01/20 14:55 ALT 25 U/L (12-78) 08/01/20 14:55 Alkaline Phosphatase 58 U/L (45-117) 08/01/20 14:55 Troponin I 0.025 ng/ml (0-0.045) 08/01/20 14:55 Total Protein 7.6 gm/dl (6.4-8.2) 08/01/20 14:55 Albumin 3.6 gm/dl (3.4-5.0) 08/01/20 14:55 Globulin 4.0 gm/dl (2.5-4.0) 08/01/20 14:55 Albumin/Globulin Ratio 0.9 (0.9-2) 08/01/20 14:55 Procalcitonin < 0.05 ng/ml (0-0.5) 08/01/20 14:55 Diagnostic Findings [facility], [id number] XRay Report Patient: RUTH DUMONTAdmit Date: 08/01/20MR#: [id number]: [address] Acct ID:[id number]: Date: 1945[facility] Zip: [place] [id number]: 74Location: EDSex: MRoom/Bed:Att Phy:Diagnosis: + covid 07/24, syncopal episode, increase sobPri Phy: Umberto Bravo, MDService Date: 08/01/20Fam Phy:Interpreting Phy: Levar GraysonAdmit Phy: Ordering Phy: Mariano Curran MD cc: ~ XR chest 1V portable HISTORY: 74 years-old Male SEPSIS acute sepsis COMPARISON: Chest radiographs 05/01/2020 TECHNIQUE: Portable AP view of the chest FINDINGS: The cardiomediastinal and hilar silhouettes are within normal limits. No pneumothorax, pleural effusion, overt pulmonary edema or airspace consolidation typical for pneumonia. Chronic interstitial coarsening of the lung bases. Linear scarring/atelectasis of the lateral left midlung. Degenerative changes of the shoulders and spine. IMPRESSION: No acute process. ACT 112: Negative or not required by law. The above report was generated using voice recognition software. It may contain grammatical, syntax or spelling errors. Electronically signed by: Silas Grayson M.D. 08/01/2020 3:52 PM Dictated: 08/01/20 1550Transcribed: 08/01/20 1550 Code Status & VTE Plan Code Status Full code VTE Prophylaxis Plan VTE Prophylaxis will be ordered: Yes PG Care Time/CCT Total # of Minutes Spent Total Time Spent with Patient: Total time spent is greater than 50% in coord ination of care (as documented) at patient's floor/unit and/or counseling patient: Coding Level of Care Code 36556 Initial Inpt Care Lvl 3 Diagnoses Pneumonia due to COVID-19 virus U07.1; J12.89 Hypothyroidism E03.9 Hypertension I10 Asthma J45.909 Polycythemia vera D45
[2020-08-01] MEDS ORDERED: NITROGLYCERIN SL 0.4 MG/TAB TAB SL PRN (21:23)
[2020-08-01] MEDS ORDERED: ALBUTEROL 0.083% NEBU SOLN 3 ML VIAL INH PRN (21:23)
[2020-08-01] MEDS ORDERED: ONDANSETRON INJ 2 MG/ML 2 ML VIAL IV PRN (21:23)
[2020-08-01] MEDS: FINASTERIDE 5 MG TAB PO SCH (23:29)
[2020-08-01] MEDS: ENOXAPARIN INJ 60 MG/0.6 ML SYR SQ SCH (23:29)
[2020-08-01] MEDS: AZITHROMYCIN 500 MG in DEXTROSE 5% 250 ML IV SCH (23:30)
[2020-08-01] MEDS: MONTELUKAST SODIUM 10 MG TABLET PO SCH (23:30)
[2020-08-01] MEDS: cefTRIAXone SODIUM 2,000 MG in DEXTROSE 5% 50 ML IV SCH (23:30)
[2020-08-01] MEDS: METOPROLOL SUCC 50MG EXT REL TAB PO SCH (23:30)
[2020-08-02 05:06] LABS: Appearance Urine Clear (Clear); Bacteria Urine Automated Negative (Negative); Bilirubin Urine Negative (Negative); Blood Urine Trace (Negative); Color Urine Yellow; Epithelial Cell Urine Auto >30 /lpf (0-5); Glucose Urine UA Negative (Negative); Ketones Urine Negative (Negative); Leukocyte Esterase Urine 1+ (Negative); Nitrite Urine Positive (Negative); Protein Urine 1+ (Negative); Specific Gravity Urine 1.019 (1.000-1.030); Urobilinogen Urine Negative (Negative); WBC Urine Automated >30 /hpf (0-5); pH Urine 5.5 (4.5-7.5)
[2020-08-02] MEDS: LEVOTHYROXINE SODIUM 125 MCG TABLET PO SCH (05:19)
[2020-08-02 05:24] LABS: Renal Epithelial Cells Urine 0-5 /lpf (0-5)
--- NOTE | 2020-08-02 05:56 | Electrocardiogram Report ---
Test Reason : Blood Pressure : / mmHG Vent. Rate : 102 BPM Atrial Rate : 102 BPM P-R Int : 174 ms QRS Dur : 076 ms QT Int : 314 ms P-R-T Axes : 047 003 031 degrees QTc Int : 409 ms Poor data quality, interpretation may be adversely affected Sinus tachycardia with Premature ventricular complexes Otherwise normal ECG When compared with ECG of 01-MAY-2020 09:22, Premature ventricular complexes are now Present MI interval has decreased Vent. rate has increased BY 50 BPM QRS duration has decreased ST no longer elevated in Anterior leads Confirmed by Vishnu Lyons ([id number]) on 08/02/2020 5:56:42 AM Referred By: SELF Confirmed By:Vishnu Lyons
--- NOTE | 2020-08-02 08:24 | Hospitalist Progress Note ---
Date of Service August 02, 2020 Assessment & Plan (1) Pneumonia due to COVID-19 virus: Pneumonia due to COVID-19 virus with hypoxia- Decadron 6 mg IV daily Convalescent plasma Remdesivir IV per protocol Ventolin HFA 2 puffs 4 times daily as needed Ceftriaxone 1 g IV daily Azithromycin 5 mg IV daily (2) Hypothyroidism: Continue levothyroxine 25 mcg daily (3) Hypertension: Continue metoprolol tartrate 50 mg p.o. daily and aspirin 81 mg daily. Hold HCTZ (4) Asthma: (5) Polycythemia vera: Continue hydroxyurea and hydroxychloroquine Admission and Anticipated Discharge Date Admission Date: August 01, 2020 Subjective She has a cough with occasional production of phlegm he feels short of breath, he is covid + started on the remdesivir, decadron and plasma Review of Systems Review of Systems: Mild to moderate respiratory distress distress and fatigue no headache, blurry or double vision no speech or swallowing issues no chest pain, pressure or palpitations Does have some shortness of breath, nonproductive cough or wheezes no abdominal pain, nausea or vomiting,resolved diarrhea or constipation no dysuria, hematuria or frequency no focal joint pain or swelling no back pain, CVA tenderness or radicular pain no bruising, bleeding or rashes no focal signs of weakness or numbness or altered sensation no complaints of anxiety or depression. Physical Exam Physical Exam: The patient appeared moderately ill, Vital signs as documented. Head exam is normocephalic atraumatic no scleral icterus Neck is without JVD, thyromegaly, or carotid bruits. Lungs are rales worse at bases and worse on left side Cardiac exam, Rhythm is regular.. No murmurs, rubs or gallops. Abdominal exam reveals normal bowel sounds, soft non tender, no masses Extremities are nonedematous and both pedal pulses are present Neurologic exam is alert and oriented, no focal loss of strength or sensation Skin is without bruises or rashes Psychologically is without concerns for anxiety or depression. Results & Data Results & Data ([facility]) Vital Signs (Past 12 Hours) Vital Signs Temp Pulse Pulse Resp BP BP Pulse Ox 08/02/20 07:27 97.9 F 74 18 136/80 91 08/02/20 04:43 98.4 F 62 16 106/60 93 08/01/20 23:59 80 08/01/20 23:43 97.9 F 72 18 113/66 95 08/01/20 22:24 97.9 F 99 H 18 125/76 96 08/01/20 22:21 80 95 08/01/20 21:00 80 128/71 08/01/20 20:30 78 116/65 PG Care Time/CCT Total # of Minutes Spent Total Time Spent with Patient: Total time spent is greater than 50% in coordination of care (as documented) at patient's floor/unit and/or counseling patient: Coding Level of Care Code 81382 Subseq Hosp Care Lvl 3 Diagnoses Pneumonia due to COVID-19 virus U07.1; J12.89 Hypothyroidism E03.9 Hypertension I10 Asthma J45.909 Polycythemia vera D45
[2020-08-02] MEDS: HYDROXYUREA 500 MG CAP PO SCH (08:54)
[2020-08-02] MEDS: hydroCHLOROthiazide 25 MG TAB PO SCH (08:54)
[2020-08-02] MEDS: ASPIRIN 81 MG ECTAB PO SCH (08:54)
[2020-08-02] MEDS: DEXAMETHASONE SOD PHOSPHATE 6 MG in SYRINGE 0 ML IV SCH (08:54)
[2020-08-02] MEDS: HYDROXYCHLOROQUINE SULFATE 200 MG TAB PO SCH (08:54)
[2020-08-02] MEDS: CHOLECALCIFEROL 400 UNITS 10 MCG TAB PO SCH (08:55)
[2020-08-02] MEDS ORDERED: guaiFENesin/DEXTROM SYRUP 200MG/20MG 10ML UDC PO PRN (12:11)
[2020-08-02] MEDS: METOPROLOL SUCC 50MG EXT REL TAB PO SCH (20:09)
[2020-08-02] MEDS: MONTELUKAST SODIUM 10 MG TABLET PO SCH (20:09)
[2020-08-02] MEDS: ENOXAPARIN INJ 60 MG/0.6 ML SYR SQ SCH (20:10)
[2020-08-02] MEDS: FINASTERIDE 5 MG TAB PO SCH (20:10)
[2020-08-02] MEDS: cefTRIAXone SODIUM 2,000 MG in DEXTROSE 5% 50 ML IV SCH (21:18)
[2020-08-02] MEDS: ACETAMINOPHEN 325 MG TAB PO PRN (21:48)
[2020-08-02] MEDS: AZITHROMYCIN 500 MG in DEXTROSE 5% 250 ML IV SCH (22:01)
[2020-08-03] MEDS: LEVOTHYROXINE SODIUM 125 MCG TABLET PO SCH (05:55)
[2020-08-03 07:22] LABS: Creatinine Clr Calc Pharmacy 54.1 ml/min; Est GFR (African American) 57.2; Est GFR (Non-African American) 49.3
[2020-08-03] MEDS: CHOLECALCIFEROL 400 UNITS 10 MCG TAB PO SCH (08:31)
[2020-08-03] MEDS: HYDROXYCHLOROQUINE SULFATE 200 MG TAB PO SCH (08:31)
[2020-08-03] MEDS: HYDROXYUREA 500 MG CAP PO SCH (08:31)
[2020-08-03] MEDS: ASPIRIN 81 MG ECTAB PO SCH (08:31)
[2020-08-03] MEDS: hydroCHLOROthiazide 25 MG TAB PO SCH (08:31)
--- NOTE | 2020-08-03 08:34 | Hospitalist Progress Note ---
Date of Service August 03, 2020 Assessment & Plan (1) Pneumonia due to COVID-19 virus: Pneumonia due to COVID-19 virus with hypoxia-admitting physician initialted treatment Decadron 6 mg IV daily Convalescent plasma Remdesivir IV per protocol Ventolin HFA 2 puffs 4 times daily as needed Ceftriaxone 1 g IV daily complete 5 day course Azithromycin 5 mg IV daily (2) Hypothyroidism: Continue levothyroxine 25 mcg daily (3) Hypertension: Continue metoprolol tartrate 50 mg p.o. daily and aspirin 81 mg daily. Hold HCTZ (4) Asthma: (5) Polycythemia vera: Continue hydroxyurea and will hold hydroxychloroquine while on remdesivir Admission and Anticipated Discharge Date Admission Date: August 01, 2020 Subjective he has persistent nagging non productive cough continues to feel weak and short of breath, he is covid + started on the remdesivir, decadron and plasma Review of Systems Review of Systems: Mild to moderate respiratory distress distress and fatigue no headache, blurry or double vision no speech or swallowing issues no chest pain, pressure or palpitations Does have some shortness of breath, nonproductive cough or wheezes no abdominal pain, nausea or vomiting,resolved diarrhea or constipation no dysuria, hematuria or frequency no focal joint pain or swelling no back pain, CVA tenderness or radicular pain no bruising, bleeding or rashes no focal signs of weakness or numbness or altered sensation no complaints of anxiety or depression. Physical Exam Physical Exam: The patient appeared moderately ill, Vital signs as documented. Head exam is normocephalic atraumatic no scleral icterus Neck is without JVD, thyromegaly, or carotid bruits. Lungs are rales worse at bases and worse on left side Cardiac exam, Rhythm is regular.. No murmurs, rubs or gallops. Abdominal exam reveals normal bowel sounds, soft non tender, no masses Extremities are nonedematous and both pedal pulses are present Neurologic exam is alert and oriented, no focal loss of strength or sensation Skin is without bruises or rashes Psychologically is without concerns for anxiety or depression. Results & Data Results & Data ([facility]) Vital Signs (Past 12 Hours) Vital Signs Temp Pulse Pulse Resp BP BP Pulse Ox 08/03/20 08:07 98.4 F 61 20 107/54 L 92 08/03/20 02:42 98.2 F 63 19 96/57 L 94 08/02/20 23:59 58 L 08/02/20 23:38 74 08/02/20 23:33 99.5 F 77 20 101/47 L 92 08/02/20 23:27 99.5 F 77 20 101/47 L 92 08/02/20 22:40 100.9 F H 83 20 129/68 91 08/02/20 22:10 102.0 F H 76 18 133/75 92 08/02/20 21:55 102.2 F H 88 18 113/62 95 08/02/20 21:45 100.8 F H 74 20 128/57 L 90 08/02/20 21:35 101.7 F H 96 H 100/53 L 93 PG Care Time/CCT Total # of Minutes Spent Total Time Spent with Patient: Total time spent is greater than 50% in coordination of care (as documented) at patient's floor/unit and/or counseling patient: Coding Level of Care Code 73601 Subseq Hosp Care Lvl 2 Diagnoses Pneumonia due to COVID-19 virus U07.1; J12.89 Hypothyroidism E03.9 Hypertension I10 Asthma J45.909 Polycythemia vera D45
[2020-08-03] MEDS: DEXAMETHASONE SOD PHOSPHATE 6 MG in SYRINGE 0 ML IV SCH (09:43)
[2020-08-03] MEDS: BENZONATATE 100 MG CAPSULE PO SCH ×2 (13:37→21:19)
--- NOTE | 2020-08-03 17:31 | Hospitalist Progress Note ---
Date of Service August 03, 2020 Assessment & Plan (1) Pneumonia due to COVID-19 virus: Pneumonia due to COVID-19 virus with hypoxia-admitting physician initialted treatment Decadron 6 mg IV daily Convalescent plasma Remdesivir IV per protocol Ventolin HFA 2 puffs 4 times daily as needed Ceftriaxone 1 g IV daily complete 5 day course Azithromycin 5 mg IV daily (2) Hypothyroidism: Continue levothyroxine 25 mcg daily (3) Hypertension: Continue metoprolol tartrate 50 mg p.o. daily and aspirin 81 mg daily. Hold HCTZ (4) Asthma: (5) Polycythemia vera: Continue hydroxyurea and will hold hydroxychloroquine while on remdesivir (6) CKD (chronic kidney disease): Admission and Anticipated Discharge Date Admission Date: August 01, 2020 Subjective he has persistent nagging non productive cough continues to feel weak and short of breath, he is covid + started on the remdesivir, decadron and plasma Review of Systems Review of Systems: Mild to moderate respiratory distress distress and fatigue no headache, blurry or double vision no speech or swallowing issues no chest pain, pressure or palpitations Does have some shortness of breath, nonproductive cough or wheezes no abdominal pain, nausea or vomiting,resolved diarrhea or constipation no dysuria, hematuria or frequency no focal joint pain or swelling no back pain, CVA tenderness or radicular pain no bruising, bleeding or rashes no focal signs of weakness or numbness or altered sensation no complaints of anxiety or depression. Physical Exam Physical Exam: The patient appeared moderately ill, Vital signs as documented. Head exam is normocephalic atraumatic no scleral icterus Neck is without JVD, thyromegaly, or carotid bruits. Lungs are rales worse at bases and worse on left side Cardiac exam, Rhythm is regular.. No murmurs, rubs or gallops. Abdominal exam reveals normal bowel sounds, soft non tender, no masses Extremities are nonedematous and both pedal pulses are present Neurologic exam is alert and oriented, no focal loss of strength or sensation Skin is without bruises or rashes Psychologically is without concerns for anxiety or depression. Results & Data Results & Data ([facility]) Vital Signs (Past 12 Hours) Vital Signs Temp Pulse Resp BP BP Pulse Ox 08/03/20 16:06 98.6 F 70 20 128/69 94 08/03/20 11:26 98.8 F 59 L 18 118/71 94 08/03/20 08:07 98.4 F 61 20 107/54 L 92 PG Care Time/CCT Total # of Minutes Spent Total Time Spent with Patient: Total time spent is greater than 50% in coordination of care (as documented) at patient's floor/unit and/or counseling patient: Coding Level of Care Code None Diagnoses Pneumonia due to COVID-19 virus U07.1; J12.89 Hypothyroidism E03.9 Hypertension I10 Asthma J45.909 Polycythemia vera D45 CKD (chronic kidney disease) N18.9
[2020-08-03] MEDS: METOPROLOL SUCC 50MG EXT REL TAB PO SCH (21:19)
[2020-08-03] MEDS: ENOXAPARIN INJ 60 MG/0.6 ML SYR SQ SCH (21:20)
[2020-08-03] MEDS: MONTELUKAST SODIUM 10 MG TABLET PO SCH (21:21)
[2020-08-03] MEDS: FINASTERIDE 5 MG TAB PO SCH (21:22)
[2020-08-03] MEDS: AZITHROMYCIN 500 MG in DEXTROSE 5% 250 ML IV SCH (21:23)
[2020-08-03] MEDS: cefTRIAXone SODIUM 2,000 MG in DEXTROSE 5% 50 ML IV SCH (21:23)
[2020-08-04] MEDS: ACETAMINOPHEN 325 MG TAB PO PRN (00:15)
[2020-08-04] MEDS ORDERED: HYDROcodone/HOMATROPINE SYRUP 5MG/1.5MG 5ML UDP PO STA (00:43)
[2020-08-04] MEDS: LEVOTHYROXINE SODIUM 125 MCG TABLET PO SCH (06:23)
[2020-08-04] MEDS ORDERED: REMDESIVIR 200 MG in SODIUM CHLORIDE 0.9% 210 ML IV STA (08:12)
[2020-08-04] MEDS ORDERED: FUROSEMIDE 20 MG in SYRINGE 0 ML IV ONE (08:30)
[2020-08-04] MEDS: ASPIRIN 81 MG ECTAB PO SCH (08:51)
[2020-08-04] MEDS: CHOLECALCIFEROL 400 UNITS 10 MCG TAB PO SCH (08:52)
[2020-08-04] MEDS: BENZONATATE 100 MG CAPSULE PO SCH ×3 (08:52→21:31)
[2020-08-04] MEDS: hydroCHLOROthiazide 25 MG TAB PO SCH (08:52)
[2020-08-04] MEDS: HYDROXYUREA 500 MG CAP PO SCH (08:52)
--- NOTE | 2020-08-04 09:01 | XRay Report ---
XR chest 1V portable HISTORY: Shortness of breath. covid eval for progression of lung changes COMPARISON: Chest 08/01/2020. FINDINGS: No pneumothorax. No pleural effusions. The cardiac silhouette remains borderline enlarged. No evidence for pulmonary edema. Faint patchy airspace opacities within the left midlung zone have im proved. No new focal lung consolidations. IMPRESSION: Improvement in the faint patchy airspace opacities within the left midlung zone consistent with a vir al pneumonia. ACT 112: Negative or not required by law. Electronically signed by: Som Cardozo M.D. 08/04/2020 9:00 AM
[2020-08-04] MEDS: DEXAMETHASONE SOD PHOSPHATE 6 MG in SYRINGE 0 ML IV SCH (09:06)
[2020-08-04] MEDS: SODIUM CHLORIDE 0.9% 10ML FLUSH IV SCH (11:21)
--- NOTE | 2020-08-04 14:40 | Hospitalist Progress Note ---
Date of Service August 04, 2020 Assessment & Plan (1) Pneumonia due to COVID-19 virus: Pneumonia due to COVID-19 virus with hypoxia-admitting physician initialted treatment Decadron 6 mg IV daily Convalescent plasma Remdesivir IV per protocol, initally thought was started by admitting physician, but was not, will start 08/04/20 Ventolin HFA 2 puffs 4 times daily as needed Ceftriaxone 1 g IV daily complete 5 day course Azithromycin 5 mg IV daily (2) Hypothyroidism: Continue levothyroxine 25 mcg daily (3) Hypertension: Continue metoprolol tartrate 50 mg p.o. daily and aspirin 81 mg daily. Hold HCTZ (4) Asthma: (5) Polycythemia vera: Continue hydroxyurea and will hold hydroxychloroquine while on remdesivir (6) CKD (chronic kidney disease): (7) Melena: pt with two dark bowel movements, does have polycythemia with high hgb, will start protonix given cocern for steroid gastritis and check labs in am 08/05 Admission and Anticipated Discharge Date Admission Date: August 01, 2020 Subjective he has persistent nagging non productive cough continues to feel weak and short of breath, he had a fall when coming back from bathroom with exaggerated hypoxia, he has had dark bowel movements and will be started on protonix Review of Systems Review of Systems: Mild to moderate respiratory distress distress and fatigue no headache, blurry or double vision no speech or swallowing issues no chest pain, pressure or palpitations Does have some shortness of breath, nonproductive cough or wheezes no abdominal pain, nausea or vomiting,resolved diarrhea or constipation no dysuria, hematuria or frequency abrasions to knees from stumble on 08/04 no back pain, CVA tenderness or radicular pain no bruising, bleeding or rashes no focal signs of weakness or numbness or altered sensation no complaints of anxiety or depression. Physical Exam Physical Exam: The patient appeared moderately ill, Vital signs as documented. Head exam is normocephalic atraumatic no scleral icterus Neck is without JVD, thyromegaly, or carotid bruits. Lungs are with rales worse at bases and worse on left side Cardiac exam, Rhythm is regular.. No murmurs, rubs or gallops. Abdominal exam reveals normal bowel sounds, soft non tender, no masses Extremities are nonedematous and only minor abrasions to knees Neurologic exam is alert and oriented, no focal loss of strength or sensation Skin is without bruises or rashes Psychologically is without concerns for anxiety or depression. Results & Data Results & Data ([facility]) Vital Signs (Past 12 Hours) Vital Signs Temp Pulse Pulse Resp BP Pulse Ox 08/04/20 04:00 98.2 F 69 20 102/59 L 94 08/04/20 01:24 99.3 F 08/04/20 00:01 100.8 F H 83 20 116/91 90 08/04/20 00:00 74 08/03/20 20:34 98.2 F 79 20 107/58 L 92 PG Care Time/CCT Total # of Minutes Spent Total Time Spent with Patient: Total time spent is greater than 50% in coordination of care (as documented) at patient's floor/unit and/or counseling patient: Coding Level of Care Code 22340 Subseq Hosp Care Lvl 3 Diagnoses Pneumonia due to COVID-19 virus U07.1; J12.89 Hypothyroidism E03.9 Hypertension I10 Asthma J45.909 Polycythemia vera D45 CKD (chronic kidney disease) N18.9 Melena K92.1
--- NOTE | 2020-08-04 15:04 | Hospitalist Progress Note ---
Date of Service August 04, 2020 Assessment & Plan (1) Pneumonia due to COVID-19 virus: Pneumonia due to COVID-19 virus with hypoxia-admitting physician initialted treatment Decadron 6 mg IV daily Convalescent plasma Remdesivir IV per protocol, initally thought was started by admitting physician, but was not, will start 08/04/20 Ventolin HFA 2 puffs 4 times daily as needed Ceftriaxone 1 g IV daily complete 5 day course Azithromycin 5 mg IV daily (2) Hypothyroidism: Continue levothyroxine 25 mcg daily (3) Hypertension: Continue metoprolol tartrate 50 mg p.o. daily and aspirin 81 mg daily. Hold HCTZ (4) Asthma: (5) Polycythemia vera: Continue hydroxyurea and will hold hydroxychloroquine while on remdesivir (6) CKD (chronic kidney disease): stage 3 (7) Melena: pt with two dark bowel movements, does have polycythemia with high hgb, will start protonix given cocern for steroid gastritis and check labs in am 08/05 Admission and Anticipated Discharge Date Admission Date: August 01, 2020 Results & Data Results & Data ([facility]) Vital Signs (Past 12 Hours) Vital Signs Temp Pulse Pulse Resp BP Pulse Ox 08/04/20 13:00 97.9 F 08/04/20 11:31 90 08/04/20 11:30 100.6 F H 71 26 H 96/53 L 87 L 08/04/20 08:15 90 08/04/20 08:11 86 L 08/04/20 08:08 97.9 F 78 26 H 121/63 84 L 08/04/20 08:00 65 08/04/20 04:00 98.2 F 69 20 102/59 L 94 PG Care Time/CCT Total # of Minutes Spent Total Time Spent with Patient: Total time spent is greater than 50% in coordination of care (as documented) at patient's floor/unit and/or counseling patient: Coding Level of Care Code None Diagnoses Pneumonia due to COVID-19 virus U07.1; J12.89 Hypothyroidism E03.9 Hypertension I10 Asthma J45.909 Polycythemia vera D45 CKD (chronic kidney disease) N18.9 Melena K92.1
[2020-08-04] MEDS: PANTOprazole 40 MG TAB PO SCH (16:31)
[2020-08-04] MEDS: AZITHROMYCIN 500 MG in DEXTROSE 5% 250 ML IV SCH (21:29)
[2020-08-04] MEDS: ENOXAPARIN INJ 60 MG/0.6 ML SYR SQ SCH (21:30)
[2020-08-04] MEDS: cefTRIAXone SODIUM 2,000 MG in DEXTROSE 5% 50 ML IV SCH (21:30)
[2020-08-04] MEDS: METOPROLOL SUCC 50MG EXT REL TAB PO SCH (21:31)
[2020-08-04] MEDS: MONTELUKAST SODIUM 10 MG TABLET PO SCH (21:31)
[2020-08-04] MEDS: FINASTERIDE 5 MG TAB PO SCH (21:41)
[2020-08-04] MEDS: PROMETHAZINE HCL 12.5 MG/10 ML UDP PO PRN (21:44)
[2020-08-05] MEDS: LEVOTHYROXINE SODIUM 125 MCG TABLET PO SCH (06:34)
[2020-08-05] MEDS: HYDROXYUREA 500 MG CAP PO SCH (08:12)
[2020-08-05] MEDS: CHOLECALCIFEROL 400 UNITS 10 MCG TAB PO SCH (08:13)
[2020-08-05] MEDS: ASPIRIN 81 MG ECTAB PO SCH (08:13)
[2020-08-05] MEDS: hydroCHLOROthiazide 25 MG TAB PO SCH (08:13)
[2020-08-05] MEDS: BENZONATATE 100 MG CAPSULE PO SCH ×3 (08:13→20:32)
[2020-08-05] MEDS: DEXAMETHASONE SOD PHOSPHATE 6 MG in SYRINGE 0 ML IV SCH (08:14)
[2020-08-05] MEDS: PANTOprazole 40 MG TAB PO SCH (08:14)
[2020-08-05] MEDS: REMDESIVIR 100 MG in SODIUM CHLORIDE 0.9% 230 ML IV SCH (08:15)
[2020-08-05] MEDS: SODIUM CHLORIDE 0.9% 10ML FLUSH IV SCH (08:18)
[2020-08-05] MEDS: PROMETHAZINE HCL 12.5 MG/10 ML UDP PO PRN (11:46)
--- NOTE | 2020-08-05 17:43 | Hospitalist Progress Note ---
Date of Service August 05, 2020 Assessment & Plan (1) Pneumonia due to COVID-19 virus: Pneumonia due to COVID-19 virus with hypoxia-admitting physician initialted treatment Decadron 6 mg IV daily Convalescent plasma Remdesivir IV per protocol, initally thought was started by admitting physician, but was not, will start 08/04/20 Ventolin HFA 2 puffs 4 times daily as needed Ceftriaxone 1 g IV daily complete 5 day course Azithromycin 5 mg IV daily Add humidifier to O2 as pt describes nasal drying (2) Hypothyroidism: Continue levothyroxine 25 mcg daily (3) Hypertension: Continue metoprolol tartrate 50 mg p.o. daily and aspirin 81 mg daily. Hold HCTZ (4) Asthma: (5) Polycythemia vera: Continue hydroxyurea and will hold hydroxychloroquine while on remdesivir (6) CKD (chronic kidney disease): stage 3 (7) Melena: pt with two dark bowel movements, does have polycythemia with high hgb, will start protonix given cocern for steroid gastritis and check labs in am 08/05 Hemoccult pending CBC in AM, prior has been WNL Pt on aspirin 81mg as at home, lovenox Will not hold given issues with clotting in COVID pts Admission and Anticipated Discharge Date Admission Date: August 01, 2020 Subjective Pt is with ongoing WEBB and lightheadedness with ambulation. No SOB at rest, but feels that the O2 is actually making it more difficult to breathe. He feels he breathes better with it off overall, but nursing states he does not maintain his sats without it. Pt was started on tesslon pearls and feels he is bringing up more sputum today. Another dark brown/green stool noted today. No mac blood or black stools. Pt denies fever, SOB, chest pain, abd pain, n/v/c/d, LE pain or swelling. Review of Systems Review of Systems: Pertinent positives and negatives reviewed in HPI--all others negative Physical Exam Constitutional: WD/WN, vitals as above Eyes: normal visual matias by confrontation and + anicteric sclerae Neck: normal visual inspection and trachea midline Respiratory: normal respiratory effort; no respiratory distress Auscultation: + crackles; no wheezes Cardiovascular: Rate/Rhythm: regular rate and regular rhythm Gastrointestinal (Abdomen): Inspection/Auscultation: abdomen not distended Percussion/Palpation: abdomen soft; abdomen nontender Musculoskeletal: Head/Neck/Chest: normocephalic and head atraumatic negative for edema, peripheral pulses intact Skin: no rashes, warm and dry Neurologic: awake; not confused Speech / Cognition: normal speech Psychiatric: A+Ox3, euthymic affect Results & Data Results & Data ([facility]) Vital Signs (Past 12 Hours) Vital Signs Temp Pulse Pulse Resp BP Pulse Ox 08/05/20 15:25 36.8 C 68 20 108/68 90 08/05/20 15:18 65 08/05/20 11:40 36.8 C 74 20 116/68 90 08/05/20 08:08 37.2 C 71 20 100/62 86 L 08/05/20 07:30 61 PG Care Time/CCT Total # of Minutes Spent Total Time Spent with Patient: Total time spent is greater than 50% in coordination of care (as documented) at patient's floor/unit and/or counseling patient: Coding Level of Care Code 92685 Subseq Hosp Care Lvl 3 Diagnoses Pneumonia due to COVID-19 virus U07.1; J12.89 Hypothyroidism E03.9 Hypertension I10 Asthma J45.909 Polycythemia vera D45 CKD (chronic kidney disease) N18.9 Melena K92.1
[2020-08-05] MEDS: METOPROLOL SUCC 50MG EXT REL TAB PO SCH (20:33)
[2020-08-05] MEDS: MONTELUKAST SODIUM 10 MG TABLET PO SCH (20:33)
[2020-08-05] MEDS: FINASTERIDE 5 MG TAB PO SCH (20:33)
[2020-08-05] MEDS: ALBUTEROL HFA 8 GM INHALER INH PRN (20:49)
[2020-08-05] MEDS: ENOXAPARIN INJ 60 MG/0.6 ML SYR SQ SCH (21:56)
[2020-08-05] MEDS: cefTRIAXone SODIUM 2,000 MG in DEXTROSE 5% 50 ML IV SCH (22:11)
[2020-08-05] MEDS: AZITHROMYCIN 500 MG in DEXTROSE 5% 250 ML IV SCH (22:11)
[2020-08-06] MEDS: ACETAMINOPHEN 325 MG TAB PO PRN (00:27)
[2020-08-06] MEDS: LEVOTHYROXINE SODIUM 125 MCG TABLET PO SCH (05:54)
[2020-08-06 07:17] LABS: Hematocrit (blood only) 43.5 % (42-52); Mean Corpuscular Hgb Conc 34.5 g/dL (32-36); Mean Corpuscular Volume 101.4 fL (80-100); Mean Platelet Volume 11.5 fL (7.4-10.4); Platelet Count 292 K/uL (130-400); RDW Coefficient of Variation 14.1 % (11.5-14.5); RDW Standard Deviation 51.9 fL (36.4-46.3); Red Blood Count 4.29 M/uL (4.7-6.1); White Blood Count 7.37 K/uL (4.8-10.8)
[2020-08-06 07:48] LABS: BUN Creatinine Ratio 22.2 (10-20); Calcium 8.4 mg/dl (8.5-10.1); Creatinine Clr Calc Pharmacy 55.6 ml/min; Est GFR (African American) 60.3; Potassium 2.8 mmol/L (3.5-5.1)
[2020-08-06] MEDS: DEXAMETHASONE SOD PHOSPHATE 6 MG in SYRINGE 0 ML IV SCH (08:28)
[2020-08-06] MEDS: ASPIRIN 81 MG ECTAB PO SCH (08:28)
[2020-08-06] MEDS: CHOLECALCIFEROL 400 UNITS 10 MCG TAB PO SCH (08:29)
[2020-08-06] MEDS: HYDROXYUREA 500 MG CAP PO SCH (08:29)
[2020-08-06] MEDS: BENZONATATE 100 MG CAPSULE PO SCH ×3 (08:29→19:47)
[2020-08-06] MEDS: PANTOprazole 40 MG TAB PO SCH (08:29)
[2020-08-06] MEDS: REMDESIVIR 100 MG in SODIUM CHLORIDE 0.9% 230 ML IV SCH (08:42)
[2020-08-06] MEDS: SODIUM CHLORIDE 0.9% 10ML FLUSH IV SCH (09:30)
--- NOTE | 2020-08-06 09:57 | XRay Report ---
XR chest 1V portable CLINICAL HISTORY: COVID, worsening hypoxia COMPARISON STUDY: 08/04/2020 FINDINGS: The heart is borderline enlarged. There is aortic tortuosity. There is persistent interstit ial thickening. Subtle groundglass peripheral opacities are suspected within the axillary portion of the right chest. The findings would be consistent with a viral pneumonitis.[ IMPRESSION: 1. Subtle groundglass opacities are now suspected within the axillary portion of the right chest. The findings are consistent with a viral pneumonitis. ACT 112: Negative or not required by law. Electronically signed by: James Patricia M.D. 08/06/2020 9:56 AM
[2020-08-06] MEDS: hydroCHLOROthiazide 25 MG TAB PO SCH (10:12)
[2020-08-06] MEDS: POTASSIUM CHLORIDE / WTR 10 MEQ/100 ML PLCT IV SCH ×2 (11:40→13:44)
[2020-08-06] MEDS: POTASSIUM CHLORIDE CRTAB 20 MEQ TABCR PO SCH ×3 (11:40→19:55)
--- NOTE | 2020-08-06 19:27 | Hospitalist Progress Note ---
Date of Service August 06, 2020 Assessment & Plan (1) Acute respiratory failure with hypoxia: 2nd to COVID-19 pneumonia. Worse today. Hypoxia worsening, with increasing respiratory support and FIO2 requirements (was on 2 L at admission; now HFNC 75%). CXR today radiographically mildly worse. ?PEs given his PCV?? Consider therapeutic anticoagulation. Day #6 of 10 of IV decadron 6mg daily. s/p plasma on 08/02/20. Remdesivir - dose #3 today. No evidence of complicating pulmonary edema. Remains on rocephin/zithromax for possibility of a superimposed bacterial pneumonia. Day #6 - can stop zithromax. Asked patient to prone frequently - staff/RTs aware. Flutter valve frequently. Incentive ileana. (2) Pneumonia due to COVID-19 virus: see "resp failure" above. repeat cbc, bmp, ast, alt, and dimer in am. vit D and zinc in addition to all modalities listed in respiratory failure (3) Polycythemia vera: Continue hydroxyurea. H/H and platelets are accepted. PCV increases risk of VTE - consider full anticoagulation given worsening hypoxia. CBC in am. (4) Hypothyroidism: Continue levothyroxine 25 mcg daily (5) Hypertension: Continue metoprolol tartrate 50 mg p.o. daily and aspirin 81 mg daily. Hold HCTZ given low-normal BPs. (6) Asthma: Without exacerbation. No wheezing at this time - just rales. Bronchodilators prn. Pulm toilet. (7) CKD (chronic kidney disease): stage 3 CrCl is 40s/50s stable bmp am (8) Melena: heme negative stool H/H stable/acceptable cont PPI while on steroids monitor daily CBC (9) DVT prophylaxis: lovenox 40mg BID updated son by phone extensively today Admission and Anticipated Discharge Date Admission Date: August 01, 2020 Subjective when I came into the room patient was sitting on side of bed. pulse o2 reading 80%. 1 of the nasal high-flow prongs was out of the nose. I asked him to lay back down - prong put back in nose - sats never got up over 85% RT happened to come in while I was there FIO2 increased to 75% sats improved we talked about proning and patient indeed did this after I left patient with WEBB w/ minimal exertion patient with ongoing cough during the visit Review of Systems Constitutional: + fever, + fatigue and + anorexia Respiratory: + cough, + dyspnea and + dyspnea on exertion; no sputum production and no wheezing Cardiovascular: no chest pain Gastrointestinal: no abdominal pain Physical Exam Constitutional: + acute distress (dyspneic w minimal activity); no altered mental status ENMT: external ear and nose normal, oropharynx normal Respiratory: + respiratory distress, + retractions, + uses accessory muscles, + cough and + tachypneic Auscultation: + crackles (extensive - b/l); no wheezes Cardiovascular: Rate/Rhythm: regular rate and regular rhythm Heart Sounds: normal S1 and normal S2; no murmur Vessels: posterior tibial pulses present and dorsalis pedis pulses present; no JVD Extremities: no edema Gastrointestinal (Abdomen): normal bowel sounds, soft, nontender, no hepatosplenomegaly Psychiatric: A+Ox3, euthymic affect Results & Data Results & Data ([facility]) Vital Signs (Past 12 Hours) Vital Signs Temp Pulse Pulse Resp BP Pulse Ox 08/06/20 19:00 36.9 C 73 18 129/68 91 08/06/20 15:27 72 20 90 08/06/20 15:02 36.9 C 82 18 119/66 90 08/06/20 12:31 36.9 C 69 18 99/54 L 91 08/06/20 10:34 79 20 95 08/06/20 09:45 79 18 94 08/06/20 08:02 37.4 C 85 20 115/66 94 08/06/20 08:00 65 08/06/20 07:31 94 H 20 90 Laboratory Results Laboratory Results - last 24 hr 08/05/20 08/06/20 08/06/20 20:24 06:00 06:00 WBC 7.37 RBC 4.29 L Hgb 15.0 Hct 43.5 MCV 101.4 H MCH 35.0 H MCHC 34.5 RDW Std Deviation 51.9 H RDW Coeff of Richard 14.1 Plt Count 292 MPV 11.5 H Sodium 134 L Potassium 2.8 L Chloride 99 Carbon Dioxide 30 Anion Gap 5.0 BUN 29 H Creatinine 1.32 Est Cr Clr Drug Dosing 55.6 Est GFR ( Amer) 60.3 Est GFR (Non-Af Amer) 52.0 BUN/Creatinine Ratio 22.2 H Glucose 92 Calcium 8.4 L Stool Occult Bld Scrn Negative PG Care Time/CCT Total # of Minutes Spent Total Time Spent with Patient: Total time spent is greater than 50% in coordination of care (as documented) at patient's floor/unit and/or counseling patient: Coding Level of Care Code 47841 Subseq Hosp Care Lvl 3 Diagnoses Acute respiratory failure with hypoxia J96.01 Pneumonia due to COVID-19 virus U07.1; J12.89 Polycythemia vera D45 Hypothyroidism E03.9 Hypertension I10 Asthma J45.909 CKD (chronic kidney disease) N18.9 Melena K92.1 DVT prophylaxis Z29.9
[2020-08-06] MEDS: FINASTERIDE 5 MG TAB PO SCH (19:46)
[2020-08-06] MEDS: MONTELUKAST SODIUM 10 MG TABLET PO SCH (19:47)
[2020-08-06] MEDS: METOPROLOL SUCC 50MG EXT REL TAB PO SCH (19:47)
[2020-08-06] MEDS: ZINC SULFATE 220 MG CAPSULE PO SCH (19:50)
[2020-08-06] MEDS: ENOXAPARIN INJ 40 MG/0.4 ML SYR SQ SCH (19:50)
[2020-08-06] MEDS: cefTRIAXone SODIUM 2,000 MG in DEXTROSE 5% 50 ML IV SCH (19:54)
[2020-08-06] MEDS: AZITHROMYCIN 500 MG in DEXTROSE 5% 250 ML IV SCH (19:54)
[2020-08-07] MEDS: LEVOTHYROXINE SODIUM 125 MCG TABLET PO SCH (05:05)
[2020-08-07] MEDS: ACETAMINOPHEN 325 MG TAB PO PRN (05:05)
[2020-08-07 07:35] LABS: Hematocrit (blood only) 42.2 % (42-52); Hemoglobin 14.4 g/dL (14.0-18.0); Mean Corpuscular Hemoglobin 34.8 pg (25-34); Mean Corpuscular Hgb Conc 34.1 g/dL (32-36); Mean Corpuscular Volume 101.9 fL (80-100); Mean Platelet Volume 11.7 fL (7.4-10.4); Platelet Count 343 K/uL (130-400); RDW Standard Deviation 52.6 fL (36.4-46.3); Red Blood Count 4.14 M/uL (4.7-6.1); White Blood Count 9.31 K/uL (4.8-10.8)
[2020-08-07 07:50] LABS: D Dimer 910 ug/L FEU (0-500)
[2020-08-07 08:08] LABS: BUN Creatinine Ratio 20.6 (10-20); Est GFR (African American) 52.9; Est GFR (Non-African American) 45.7; Magnesium 2.2 mg/dl (1.8-2.4); Potassium 3.5 mmol/L (3.5-5.1)
[2020-08-07] MEDS: REMDESIVIR 100 MG in SODIUM CHLORIDE 0.9% 230 ML IV SCH (08:59)
[2020-08-07] MEDS: DEXAMETHASONE SOD PHOSPHATE 6 MG in SYRINGE 0 ML IV SCH (09:00)
[2020-08-07] MEDS: ENOXAPARIN INJ 40 MG/0.4 ML SYR SQ SCH (09:00)
[2020-08-07] MEDS: CHOLECALCIFEROL 1,000 UNITS 25 MCG TAB PO SCH (09:00)
[2020-08-07] MEDS: ASPIRIN 81 MG ECTAB PO SCH (09:01)
[2020-08-07] MEDS: PANTOprazole 40 MG TAB PO SCH (09:01)
[2020-08-07] MEDS: HYDROXYUREA 500 MG CAP PO SCH (09:01)
[2020-08-07] MEDS: BENZONATATE 100 MG CAPSULE PO SCH ×3 (09:02→20:47)
[2020-08-07] MEDS: POTASSIUM CHLORIDE CRTAB 20 MEQ TABCR PO SCH ×3 (09:05→22:03)
[2020-08-07] MEDS: ZINC SULFATE 220 MG CAPSULE PO SCH (10:29)
[2020-08-07] MEDS: SODIUM CHLORIDE 0.9% 10ML FLUSH IV SCH (10:30)
[2020-08-07] MEDS ORDERED: ENOXAPARIN INJ 60 MG/0.6 ML SYR SQ ONE (12:00)
--- NOTE | 2020-08-07 14:05 | Hospitalist Progress Note ---
Date of Service August 07, 2020 Assessment & Plan (1) Acute respiratory failure with hypoxia: 2nd to COVID-19 pneumonia. Cannot rule out concomitant PE. MUCH worse today by way of FiO2 requirements - now requiring 100% FiO2. Day #7 of 10 of IV decadron 6mg daily. s/p plasma on 08/02/20. Remdesivir - dose #4 pf 5 today. No evidence of complicating pulmonary edema on exam. Remains on rocephin - day #7 today - can stop. Completed 5-day course of zithromax - this has been stopped. Cont frequent proning. Flutter valve frequently. Incentive ileana. Formal palliative care consult requested to refine goals of care, wishes for intubation/ventilation, etc. I spoke with on-call pulmonary -- they are aware of this pt's situation. If any worsening then trial of BIPAP. If refractory hypoxia despite HFNC or BIPAP would need intubation. (2) Pneumonia due to COVID-19 virus: see "resp failure" above. worse clinically. due to worsening hypoxia - and increased risk of VTE with COVID - will change chemical anticoagulation to FULL STRENGTH/therapeutic lovenox to cover for possibility of PE. vit D and zinc in addition to all modalities listed in respiratory failure (3) Polycythemia vera: Continue hydroxyurea. H/H and platelets are acceptable. PCV increases risk of VTE - will change to full anticoagulation given worsening hypoxia. CBC in am. (4) Hypothyroidism: Continue levothyroxine 25 mcg daily (5) Hypertension: Continue metoprolol tartrate 50 mg p.o. daily and aspirin 81 mg daily. Hold HCTZ given low-normal BPs. (6) Asthma: Without exacerbation. No wheezing, just rales from his pneumonitis. Bronchodilators prn. Pulm toilet. Other Rx measures above. (7) CKD (chronic kidney disease): stage 3 CrCl is 40s/50s stable bmp am (8) Melena: concern for such earlier this stay. however, heme negative stool H/H stable/acceptable cont PPI while on steroids monitor daily CBC (9) DVT prophylaxis: increase lovenox to therapeutic lovenox - see above left message for son [facility] care d/w palliative care care d/w pulmonary prognosis very, very guarded Admission and Anticipated Discharge Date Admission Date: August 01, 2020 Subjective patient now on 100% FiO2 with O2 sats 92% during my rounds. he would dip into upper 80s with any movement in the bed with good waveform on pulse oximeter. very dyspneic with any activity. continues with cough. despite the above he says "I feel better today". appetite ok. no chest pain. no orthopnea. tele stable overnight. no new COVID symptoms. we had brief discussion about code status. he told me he really wasn't sure what he would want if he needed a vent. said "I need to think about it." Review of Systems Constitutional: + fatigue, + weakness and + anorexia; no fever and no chills Respiratory: + cough and + dyspnea on exertion; no hemoptysis, no sputum production and no wheezing Cardiovascular: no chest pain Gastrointestinal: no abdominal pain Physical Exam Constitutional: + acute distress (dyspneic w minimal activity); no altered mental status ENMT: external ear and nose normal, oropharynx normal Respiratory: + cough and + tachypneic (with any activity); no respiratory distress Auscultation: + crackles (extensive - b/l bases); no wheezes Cardiovascular: Rate/Rhythm: regular rate and regular rhythm Heart Sounds: normal S1 and normal S2; no murmur Vessels: posterior tibial pulses present and dorsalis pedis pulses present; no JVD Extremities: no edema Gastrointestinal (Abdomen): normal bowel sounds, soft, nontender, no hepatosplenomegaly Psychiatric: A+Ox3, euthymic affect Results & Data Results & Data ([facility]) Vital Signs (Past 12 Hours) Vital Signs Temp Pulse Pulse Resp BP BP Pulse Ox 08/07/20 11:27 82 21 93 08/07/20 10:59 36.5 C 70 20 113/63 90 08/07/20 08:19 36.6 C 81 20 115/58 L 96 08/07/20 07:55 83 20 100 08/07/20 06:16 37.6 C H 08/07/20 04:35 38.4 C H 97 H 22 125/76 91 Laboratory Results Laboratory Results - last 24 hr 08/07/20 08/07/20 08/07/20 07:03 07:03 07:03 WBC 9.31 RBC 4.14 L Hgb 14.4 Hct 42.2 MCV 101.9 H MCH 34.8 H MCHC 34.1 RDW Std Deviation 52.6 H RDW Coeff of Richard 14.0 Plt Count 343 MPV 11.7 H D-Dimer 910 H* Sodium 136 Potassium 3.5 D Chloride 103 Carbon Dioxide 25 Anion Gap 9.0 BUN 30 H Creatinine 1.47 H Est Cr Clr Drug Dosing 50.0 Est GFR ( Amer) 52.9 Est GFR (Non-Af Amer) 45.7 BUN/Creatinine Ratio 20.6 H Glucose 111 H Calcium 9.0 Magnesium 2.2 AST 42 H ALT 40 PG Care Time/CCT Total # of Minutes Spent Total Time Spent with Patient: Total time spent is greater than 50% in coordination of care (as documented) at patient's floor/unit and/or counseling patient: Coding Level of Care Code 86949 Subseq Hosp Care Lvl 3 Diagnoses Acute respiratory failure with hypoxia J96.01 Pneumonia due to COVID-19 virus U07.1; J12.89 Polycythemia vera D45 Hypothyroidism E03.9 Hypertension I10 Asthma J45.909 CKD (chronic kidney disease) N18.9 Melena K92.1 DVT prophylaxis Z29.9
--- NOTE | 2020-08-07 14:41 | Palliative Care Consultation ---
Date of Consultation August 07, 2020 Assessment & Plan (1) Palliative care encounter: This is a very sweet individual male who This gentleman was diagnosed with COVID-19 in the community and was placed on Augmentin. He presented to the [facility] with increased SOB and decreased PO intake. The patient does not have extensive PMH but does include Asthma, CKD, BPH, Diverticulosis, GERD, HTN, HLD, and ALEXANDR. The patient has been treated with steroids, convalescent plasma, Remdesivir, and antibiotics. His hypoxia has worsened over the past few days, initially only requiring 2LNC, now requiring 30L of 100% Hi-Flow Oxygen. Palliative Care was consulted to discuss goals of care with this individual. -I spoke with the patient over the phone to discuss his current illness state. He has been requiring increased oxygen needs over the past few days and does have a good understanding of what intubation and ventilation means. -His was intubated and on a ventilator, eventually compassionately extubated to pass away. At baseline, he lives at home alone. -He states that he is very fatigued and feeling like he is 'losing steam'. He expressed feeling comfortable with dying if it would come to that point, but would like to trial intubation if his Hi-flow needs increased and he did not respond to BiPAP. He is becoming more short of breath. -He was able to have a full conversation with me and was able to participate in decision making. -In discussion regarding his code status, patient declines having any CPR or cardioversion/shocking; but does want short-term intubation. 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 Conditional code order placed. -I asked if it would be helpful to talk with his Beauty Operator Apprentice. He attends [employer] in [place]. I spoke with Father Peterson there and he was going to call in to the hospital to provide clergy with the patient. -Patient has two sons and a daughter: Jefry ([place]), Demian ([place]), and Shaye ([place]). We only have Jefry's phone # and he works at a senior care and unable to talk. Pt gave consent to talk with his neighbor, Dr. Alfie Worley and give an update and see if he has other contact information. I spoke with Alfie luna ([phone]) and he provided me with Demian's phone number ([phone]). I spoke with Demian and provided him an update. He was able to speak with his father and feels comfortable knowing he plan of care. -At this time, we will continue to follow and offer support. Thanks again for allowing us to be involved with this man. (2) COVID-19: Community positive. Patient has received 6 days of steroids and 3 days of Remdesivir. He has received one dose of Convalescent plasma. (3) Hypoxia: Worsening. In 48 hours, he has gone from requiring 2LNC to now 30L Hi-Flow at 100%. OK for short term intubation, understanding risks and benefits. (4) Acute respiratory failure with hypoxemia: (5) Pneumonia: History of Present Illness Reason for Consultation: Goals of Care Requesting Physician: Dr. Hurt Attending Physician: Eleno Hurt History of Present Illness This is a very sweet individual male who This gentleman was diagnosed with COVID-19 in the community and was placed on Augmentin. He presented to the [facility] with increased SOB and decreased PO intake. The patient does not have extensive PMH but does include Asthma, CKD, BPH, Diverticulosis, GERD, HTN, HLD, and ALEXANDR. The patient has been treated with steroids, convalescent plasma, Remdesivir, and antibiotics. His hypoxia has worsened over the past few days, initially only requiring 2LNC, now requiring 30L of 100% Hi-Flow Oxygen. Palliative Care was consulted to discuss goals of care with this individual. Please see A/P for further details. Thank you kindly for involving the palliative care consultation service with this patient. Allergies Allergy/AdvReac Type Severity Reaction Status Date / Time irbesartan Allergy Severe ANGIOEDEMA Verified 08/01/20 15:50 amlodipine Allergy Unknown ITCHING, Verified 08/01/20 15:50 RASH ON ANKLES Home Medications Medication Instructions Recorded Confirmed Type albuterol sulfate 2.5 mg INHALATION Q4 PRN 07/28/18 08/01/20 History albuterol sulfate [ProAir HFA] 2 puff INHALATION Q4 PRN 07/28/18 08/01/20 History aspirin 81 mg PO QAM 07/28/18 08/01/20 History hydroxyurea 500 mg PO QAM 07/28/18 08/01/20 History miscellaneous medical supply #240 ea 04/04/19 05/21/20 Rx fluticasone propionate 50 2 spray INTRANASAL DAILY PRN #47.4 05/18/19 08/01/20 Rx mcg/actuation nasal gm spray,suspension Vitamin D3 200mcg Gummies 400 mcg PO QAM 04/20/20 08/01/20 History celecoxib 200 mg PO QAM PRN 04/20/20 08/01/20 History finasteride 5 mg PO HS 04/20/20 08/01/20 History hydrochlorothiazide 25 mg PO QAM 04/20/20 08/01/20 History hydroxychloroquine 200 mg PO QAM 04/20/20 08/01/20 History metoprolol succinate 50 mg PO PM 04/20/20 08/01/20 History montelukast 10 mg PO PM 04/20/20 08/01/20 History levothyroxine [Synthroid] 125 mcg PO QAM 04/30/20 08/01/20 History ibuprofen [Advil] 400 mg PO Q6H PRN 08/01/20 08/01/20 History Patient History Medical History (Updated 08/07/20 @ 16:15 by BRENDEN Ortiz) Allergic rhinitis Asthma exertion induced--inhalers/nebulizer prn BPH with obstruction/lower urinary tract symptoms Chronic back pain Degenerative disc disease Disc degeneration, lumbar Diverticulosis hx GERD (gastroesophageal reflux disease) ocasional Hearing deficit Hypercholesterolemia no medications Hypertension Hypothyroidism Hypoxia Palliative care encounter Pneumonia Polycythemia vera On Hydroxyurea Vitamin D deficiency Surgical History History of arthroscopy of right shoulder History of bilateral cataract extraction History of colonoscopy History of rhinoplasty History of total right knee replacement (TKR) Hx of transurethral resection of prostate Family History Sister Hypertension Father Hypertension Mother Hypertension Brother Prostate cancer Other No pertinent family history in first degree relatives Social History Smoking Status: Never smoker Second Hand Exposure: No; Hx Alcohol Use: Yes Alcohol type: beer and hard liquor Hx Substance Use: No Preferred Language: Palauan Communication Ability: Effective Senior Technical 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 Discussed with the Hospitalist Results & Data ([facility]) Vital Signs (Past 12 Hours) Vital Signs Temp Pulse Pulse Resp BP BP Pulse Ox 08/07/20 11:27 82 21 93 08/07/20 10:59 36.5 C 70 20 113/63 90 08/07/20 08:19 36.6 C 81 20 115/58 L 96 08/07/20 07:55 83 20 100 08/07/20 06:16 37.6 C H 08/07/20 04:35 38.4 C H 97 H 22 125/76 91 PG Care Time/CCT Total # of Minutes Spent Total Time Spent with Patient: Total time spent is greater than 50% in coordination of care (as documented) at patient's floor/unit and/or counseling patient: 100 Coding Level of Care Code 82534 Inpt Consult Level 4 Diagnoses Palliative care encounter Z51.5 COVID-19 U07.1 Hypoxia R09.02 Acute respiratory failure with hypoxemia J96.01 Pneumonia J18.9 Time Spent (min) 100 Time Spent Midlevel Total time spent 100 minutes with > 50% of that time spent discussing goals of care with the patient directly on the phone, collaborating with IDT, attempting to call family and discussing with family chain hoist operator
[2020-08-07] MEDS: ENOXAPARIN 100 MG/1ML SYR SQ SCH (20:46)
[2020-08-07] MEDS: FINASTERIDE 5 MG TAB PO SCH (20:48)
[2020-08-07] MEDS: MONTELUKAST SODIUM 10 MG TABLET PO SCH (20:49)
[2020-08-07] MEDS: METOPROLOL SUCC 50MG EXT REL TAB PO SCH (20:49)
[2020-08-07] MEDS: cefTRIAXone SODIUM 2,000 MG in DEXTROSE 5% 50 ML IV SCH (22:01)
[2020-08-08] MEDS: LEVOTHYROXINE SODIUM 125 MCG TABLET PO SCH (06:08)
[2020-08-08 07:31] LABS: Hematocrit (blood only) 40.6 % (42-52); Hemoglobin 13.9 g/dL (14.0-18.0); Mean Corpuscular Hemoglobin 34.9 pg (25-34); Mean Corpuscular Hgb Conc 34.2 g/dL (32-36); Mean Platelet Volume 11.3 fL (7.4-10.4); Platelet Count 311 K/uL (130-400); RDW Coefficient of Variation 14.3 % (11.5-14.5); RDW Standard Deviation 53.2 fL (36.4-46.3); Red Blood Count 3.98 M/uL (4.7-6.1); White Blood Count 7.51 K/uL (4.8-10.8)
[2020-08-08] MEDS: REMDESIVIR 100 MG in SODIUM CHLORIDE 0.9% 230 ML IV SCH (07:57)
[2020-08-08] MEDS: POTASSIUM CHLORIDE CRTAB 20 MEQ TABCR PO SCH ×3 (07:57→20:00)
[2020-08-08] MEDS: PANTOprazole 40 MG TAB PO SCH (07:58)
[2020-08-08] MEDS: DEXAMETHASONE SOD PHOSPHATE 6 MG in SYRINGE 0 ML IV SCH (07:58)
[2020-08-08] MEDS: ZINC SULFATE 220 MG CAPSULE PO SCH (07:59)
[2020-08-08] MEDS: ASPIRIN 81 MG ECTAB PO SCH (07:59)
[2020-08-08] MEDS: CHOLECALCIFEROL 1,000 UNITS 25 MCG TAB PO SCH (07:59)
[2020-08-08] MEDS: ENOXAPARIN 100 MG/1ML SYR SQ SCH ×2 (07:59→20:00)
[2020-08-08] MEDS: HYDROXYUREA 500 MG CAP PO SCH (07:59)
[2020-08-08] MEDS: BENZONATATE 100 MG CAPSULE PO SCH ×3 (07:59→19:59)
[2020-08-08 08:09] LABS: BUN Creatinine Ratio 21.9 (10-20); Calcium 8.3 mg/dl (8.5-10.1); Creatinine Clr Calc Pharmacy 63.4 ml/min; Est GFR (African American) 70.5; Est GFR (Non-African American) 60.8; Potassium 3.8 mmol/L (3.5-5.1)
[2020-08-08] MEDS: ACETAMINOPHEN 325 MG TAB PO PRN (08:09)
[2020-08-08] MEDS: FLUTICASONE PROPIONATE NA SPR 16 GM BTL PRN (08:27)
--- NOTE | 2020-08-08 10:38 | XRay Report ---
XR chest 1V portable HISTORY: 74 years-old Male COVID, worsening O2 requirements, ARDS? Acute shortness of breath with hy poxia COMPARISON: Chest radiograph 08/06/2020 TECHNIQUE: Portable AP view of the chest FINDINGS: Cardiomediastinal and hilar silhouettes are within normal limits. Moderately worsened bilateral mixed interstitial and alveolar opacities, right greater than left. There is no pneumothorax, or pleural e ffusion. Degenerative changes of the shoulders and spine. IMPRESSION: Moderately worsened right greater than left interstitial and alveolar opacities are jadon tible with a worsening pneumonia. ACT 112: Negative or not required by law. The above report was generated using voice recognition software. It may contain grammatical, syntax o r spelling errors. Electronically signed by: Silas Grayson M.D. 08/08/2020 10:36 AM
[2020-08-08] MEDS: SODIUM CHLORIDE 0.9% 10ML FLUSH IV SCH (12:55)
[2020-08-08] MEDS ORDERED: POTASSIUM CHLORIDE CRTAB 20 MEQ TABCR PO STA (19:00)
[2020-08-08] MEDS ORDERED: FUROSEMIDE 20 MG TAB PO ONE (19:00)
--- NOTE | 2020-08-08 19:01 | Hospitalist Progress Note ---
Date of Service August 08, 2020 Assessment & Plan (1) Acute respiratory failure with hypoxia: WORSE. FiO2 requirements now maxed on high-flow NC. CXR today with worsening b/l pneumonia / developing ARDS. 2nd to COVID-19 pneumonia. Cannot rule out concomitant PE. On 08/07 he was placed on empiric anticoagulation for that purpose. Day #8 of 10 of IV decadron 6mg daily. s/p plasma on 08/02/20. Remdesivir - dose #5 today. Since patient is worsening despite the above will extend the remdesivir course another 5 days for total of 10 days of Rx. Spoke with pharmacy re: this. No evidence of complicating pulmonary edema on exam or exam but can't rule it out 100%. Will trial dose of lasix 20mg x 1 and reassess tomorrow. Completed 7-day course of rocephin - now off. Completed 5-day course of zithromax - also now off. Cont frequent proning. He tolerates this well. Flutter valve frequently. Incentive ileana frequently. Formal palliative care consult requested to refine goals of care, wishes for intubation/ventilation, etc. Patient ok with intubation/mech ventilation but would not want such for greater than 3 days. He also reports he would NOT want shocks or compressions. This was documented by palliative care team and ordered as such. If any worsening then trial of BIPAP. However, he has done very poorly with BIPAP during this stay, preferring to return to HFNC quickly. If refractory hypoxia despite HFNC or BIPAP would need intubation. (2) Pneumonia due to COVID-19 virus: see "resp failure" above. worse clinically again today. due to worsening hypoxia - and increased risk of VTE with COVID - empiric therapeutic anticoagulation with lovenox begun on 08/07/20. finish steroid course. extend remdesivir course to 10 days in total due to clinical worsening/poor response to date. check Cr, AST, ALT in am. (3) Polycythemia vera: Continue hydroxyurea. H/H and platelets are acceptable. PCV increases risk of VTE - full anticoagulation started 08/07 given worsening hypoxia. CBC in am. (4) Hypothyroidism: Continue levothyroxine 125 mcg daily last TSH was 02/2020 and was high will repeat in am (5) Hypertension: Continue metoprolol tartrate 50 mg p.o. daily and aspirin 81 mg daily. Hold HCTZ given low-normal BPs. (6) Asthma: Without exacerbation. No wheezing, just rales from his pneumonitis. Bronchodilators prn. Pulm toilet. Other Rx measures above. (7) CKD (chronic kidney disease): stage 3 CrCl is 40s/50s stable bmp am (8) Melena: concern for such earlier this stay. however, stool was heme negative. H/H stable/acceptable. cont PPI while on steroids. monitor daily CBC. (9) BPH (benign prostatic hyperplasia): cont finasteride (10) DVT prophylaxis: lovenox 90mg BID updated son (Bimal) by phone this evening; he is aware of worsening resp status updated pt's [id number] by phone as well; message to be passed to pt's sister remains critically ill with guarded prognosis too ill/weak/hypoxic for any PT/OT at this time Admission and Anticipated Discharge Date Admission Date: August 01, 2020 Subjective patient this am had temp of 37.9. he had rigors and felt very poorly. o2 sats dropped to the 80s on High-flow. HFNC was titrated to 45 L and 100% FIO2. fever was medicated; he proned and tried to rest; felt better later in am. during rounds he was sleeping on back. o2 sats ranged 88-92% on 100% FiO2. with any movement in the bed he was dyspneic. no orthopnea. stated he "felt terrible" this am. attributes some of his improvement to flonase being placed up the nose (?). has constant cough - dry, nonproductive, no hemoptysis or wheezing. eating fair at best. mild chest tightness. no abd pain. he is very scared about what is going on. 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 Review of Systems Constitutional: + fever, + chills, + fatigue, + weakness and + anorexia Ear, Nose, Mouth, Throat: no nasal congestion and no sore throat Respiratory: + cough, + dyspnea and + dyspnea on exertion; no sputum production and no wheezing Cardiovascular: as per Subjective / HPI; no orthopnea and no edema Gastrointestinal: no abdominal pain, no nausea, no vomiting and no diarrhea/loose stools Physical Exam Constitutional: + acute distress (dyspneic w minimal activity); no altered mental status anxious ENMT: external ear and nose normal, oropharynx normal Respiratory: + retractions (with movement ), + cough and + tachypneic (with any activity) Auscultation: + crackles (b/l bases - worse today, R>L); no wheezes Cardiovascular: Rate/Rhythm: regular rate and regular rhythm Heart Sounds: normal S1 and normal S2; no murmur Vessels: posterior tibial pulses present and dorsalis pedis pulses present; no JVD Extremities: no edema Gastrointestinal (Abdomen): normal bowel sounds, soft, nontender, no hepatosplenomegaly Skin: no rashes, warm and dry diaphoretic Psychiatric: Orientation: alert and oriented x 3 Results & Data Results & Data ([facility]) Vital Signs (Past 12 Hours) Vital Signs Temp Pulse Pulse Resp BP BP Pulse Ox 08/08/20 18:53 36.5 C 82 18 122/74 93 08/08/20 16:00 90 08/08/20 15:31 68 20 94 08/08/20 15:26 36.8 C 71 18 113/62 95 08/08/20 12:12 75 18 94 08/08/20 12:04 36.5 C 74 18 107/59 L 93 08/08/20 08:40 37.9 C H 08/08/20 08:31 77 22 89 L 08/08/20 07:54 36.7 C 74 18 109/66 98 Laboratory Results Laboratory Results - last 24 hr 08/08/20 08/08/20 06:12 06:12 WBC 7.51 RBC 3.98 L Hgb 13.9 L Hct 40.6 L MCV 102.0 H MCH 34.9 H MCHC 34.2 RDW Std Deviation 53.2 H RDW Coeff of Richard 14.3 Plt Count 311 MPV 11.3 H Sodium 137 Potassium 3.8 Chloride 105 Carbon Dioxide 29 Anion Gap 3.0 BUN 25 H Creatinine 1.16 D Est Cr Clr Drug Dosing 63.4 Est GFR ( Amer) 70.5 Est GFR (Non-Af Amer) 60.8 BUN/Creatinine Ratio 21.9 H Glucose 100 H Calcium 8.3 L PG Care Time/CCT Total # of Minutes Spent Total Time Spent with Patient: Total time spent is greater than 50% in coordination of care (as documented) at patient's floor/unit and/or counseling patient: Coding Level of Care Code 71799 Subseq Hosp Care Lvl 3 Diagnoses Acute respiratory failure with hypoxia J96.01 Pneumonia due to COVID-19 virus U07.1; J12.89 Polycythemia vera D45 Hypothyroidism E03.9 Hypertension I10 Asthma J45.909 CKD (chronic kidney disease) N18.9 Melena K92.1 BPH (benign prostatic hyperplasia) N40.0 DVT prophylaxis Z29.9
[2020-08-08] MEDS: MONTELUKAST SODIUM 10 MG TABLET PO SCH (20:00)
[2020-08-08] MEDS: METOPROLOL SUCC 50MG EXT REL TAB PO SCH (20:00)
[2020-08-09] MEDS: FLUTICASONE PROPIONATE NA SPR 16 GM BTL PRN (01:18)
[2020-08-09] MEDS: LEVOTHYROXINE SODIUM 125 MCG TABLET PO SCH (05:46)
[2020-08-09 08:00] LABS: Hemoglobin 14.8 g/dL (14.0-18.0); Mean Corpuscular Hemoglobin 35.2 pg (25-34); Mean Corpuscular Hgb Conc 34.4 g/dL (32-36); Mean Corpuscular Volume 102.4 fL (80-100); Mean Platelet Volume 11.4 fL (7.4-10.4); Platelet Count 389 K/uL (130-400); RDW Coefficient of Variation 14.4 % (11.5-14.5); RDW Standard Deviation 53.7 fL (36.4-46.3)
[2020-08-09] MEDS: REMDESIVIR 100 MG in SODIUM CHLORIDE 0.9% 230 ML IV SCH (09:14)
[2020-08-09] MEDS: PANTOprazole 40 MG TAB PO SCH (09:14)
[2020-08-09] MEDS: HYDROXYUREA 500 MG CAP PO SCH (09:14)
[2020-08-09] MEDS: DEXAMETHASONE SOD PHOSPHATE 6 MG in SYRINGE 0 ML IV SCH (09:14)
[2020-08-09] MEDS: ASPIRIN 81 MG ECTAB PO SCH (09:14)
[2020-08-09] MEDS: ENOXAPARIN 100 MG/1ML SYR SQ SCH ×2 (09:15→21:38)
[2020-08-09] MEDS: BENZONATATE 100 MG CAPSULE PO SCH ×3 (09:15→21:41)
[2020-08-09] MEDS: ZINC SULFATE 220 MG CAPSULE PO SCH (09:15)
[2020-08-09] MEDS: POTASSIUM CHLORIDE CRTAB 20 MEQ TABCR PO SCH ×3 (09:16→23:27)
[2020-08-09] MEDS ORDERED: SODIUM CHLORIDE 0.65% NA SOLN 45 ML (OCEAN) NAE PRN (09:30)
[2020-08-09 09:33] LABS: BUN Creatinine Ratio 19.6 (10-20); Calcium 8.6 mg/dl (8.5-10.1); Creatinine Clr Calc Pharmacy 55.7 ml/min; Est GFR (African American) 60.3
[2020-08-09 09:47] LABS: Thyroid Stimulating Hormone 1.49 uIu/ml (0.300-4.500)
--- NOTE | 2020-08-09 10:21 | Hospitalist Progress Note ---
Date of Service August 09, 2020 Assessment & Plan (1) Acute respiratory failure with hypoxia: got worse the past few days, now a little better today tolerating HFNC 40L and 90% FiO2, laying prone much of the day CXR 08/08 with worsening b/l pneumonia / developing ARDS. 2nd to COVID-19 pneumonia. Cannot rule out concomitant PE. On 08/07 he was placed on empiric anticoagulation for that purpose. Day #9 of 10 of IV decadron 6mg daily. s/p plasma on 08/02/20. Remdesivir - dose #6 today. Since patient is worsening despite the above will extend the remdesivir course another 5 days for total of 10 days of Rx No evidence of complicating pulmonary edema on exam or exam but can't rule it out 100% Completed 7-day course of rocephin - now off. Completed 5-day course of zithromax - also now off. Cont frequent proning. He tolerates this well. Flutter valve frequently. Incentive ileana frequently. Formal palliative care consult requested to refine goals of care, wishes for intubation/ventilation, etc. Patient ok with intubation/mech ventilation but would not want such for greater than 3 days. He also reports he would NOT want shocks or compressions. This was documented by palliative care team and ordered as such. If refractory hypoxia despite HFNC would need intubated, at this time he appears to be slightly better, admits to feeling better (2) Pneumonia due to COVID-19 virus: see "resp failure" above. slight improvement today therapeutic anticoagulation with lovenox begun on 08/07/20. finish steroid course. extend remdesivir course to 10 days in total due to clinical worsening/poor response to date. labs are all stable today (3) Polycythemia vera: Continue hydroxyurea. H/H and platelets are acceptable. PCV increases risk of VTE - full anticoagulation started 08/07 given worsening hypoxia. CBC in am. (4) Hypothyroidism: Continue levothyroxine 125 mcg daily last TSH was 02/2020 and was high will repeat in am (5) Hypertension: Continue metoprolol tartrate 50 mg p.o. daily and aspirin 81 mg daily. Hold HCTZ given low-normal BPs. (6) Asthma: Without exacerbation. No wheezing Bronchodilators prn. Pulm toilet. Other Rx measures above. (7) CKD (chronic kidney disease): stage 3 CrCl is 40s/50s stable bmp am (8) Melena: concern for such earlier this stay. however, stool was heme negative. H/H stable/acceptable. cont PPI while on steroids. monitor daily CBC. (9) BPH (benign prostatic hyperplasia): cont finasteride (10) DVT prophylaxis: lovenox 90mg BID updated son (Bimal) by phone this evening prognosis remains guarded too ill/weak/hypoxic for any PT/OT at this time Admission and Anticipated Discharge Date Admission Date: August 01, 2020 Subjective patient sitting up after eating a little breakfast this morning feels short of breath but says that he feels overall better compared to yesterday he remains on HFNC at 40L and 90% FiO2 he has been compliant with laying prone most of the day, really helps his oxygen saturations reviewed chart reviewed labs, CBC shows stable WBC and H/H, Cr is 1.32 and K is 4.0, LFT normal Review of Systems Review of Systems: All systems reviewed & are unremarkable except as noted in Subjective Physical Exam Constitutional: well developed, well nourished and + ill appearing; no acute distress Neck: trachea midline, no thyromegaly Respiratory: + labored breathing, + uses accessory muscles, + cough and + tachypneic Auscultation: no crackles, no rales, no rhonchi and no wheezes Cardiovascular: RRR, no murmur, no edema Gastrointestinal (Abdomen): normal bowel sounds, soft, nontender, no hepatosplenomegaly Musculoskeletal: no cyanosis or clubbing, extremities motor strength 5/5 Skin: no rashes, warm and dry Neurologic: patellar DTR's 2+ bilat, sensation intact and PERRL, EOMI, accommodation nl, no face palsy, no dysarthria Psychiatric: A+Ox3, euthymic affect Lymphatic: no cervical or axillary lymphadenopathy Results & Data Results & Data ([facility]) Vital Signs (Past 12 Hours) Vital Signs Temp Pulse Resp BP BP Pulse Ox 08/09/20 08:09 77 20 90 08/09/20 07:29 37.2 C 80 18 152/80 H 85 L 08/09/20 03:51 65 22 92 08/09/20 03:42 36.4 C L 65 20 107/64 94 08/09/20 01:20 88 L 08/09/20 01:14 73 81 L 08/08/20 23:49 64 20 95 08/08/20 23:31 36.8 C 65 20 115/66 96 Laboratory Results Laboratory Results - last 24 hr 08/09/20 08/09/20 07:20 07:20 WBC 8.30 RBC 4.20 L Hgb 14.8 Hct 43.0 MCV 102.4 H MCH 35.2 H MCHC 34.4 RDW Std Deviation 53.7 H RDW Coeff of Richard 14.4 Plt Count 389 MPV 11.4 H Sodium 140 Potassium 4.0 Chloride 108 H Carbon Dioxide 28 Anion Gap 4.0 BUN 26 H Creatinine 1.32 Est Cr Clr Drug Dosing 55.7 Est GFR ( Amer) 60.3 Est GFR (Non-Af Amer) 52.0 BUN/Creatinine Ratio 19.6 Glucose 99 Calcium 8.6 AST 33 ALT 77 Total Creatine Kinase 40 NT-Pro-B Natriuret Pep 505 TSH 1.490 Medications Administered Current Inpatient Medications Acetaminophen (Acetaminophen 325 Mg Tab) 650 mg PO Q4H PRN PRN Reason: Pain or Fever Stop: 08/31/20 21:22 Last Admin: 08/08/20 08:09 Dose: 650 mg Documented by: Albuterol (Albuterol Hfa 8 Gm Inhaler) 2 puffs INH Q4 PRN PRN Reason: Shortness Of Breath Stop: 08/31/20 21:22 Last Admin: 08/05/20 20:49 Dose: 2 puffs Documented by: Albuterol (Albuterol 0.083% Nebu Soln 3 Ml Vial) 2.5 mg INH Q4 PRN PRN Reason: Shortness Of Breath Stop: 08/31/20 21:22 Aspirin (Aspirin 81 Mg Ectab) 81 mg PO QAM [facility] Stop: 09/01/20 08:59 Last Admin: 08/09/20 09:14 Dose: 81 mg Documented by: Benzonatate (Benzonatate 100 Mg Capsule) 100 mg PO TID [facility] Stop: 09/02/20 12:59 Last Admin: 08/09/20 09:15 Dose: 100 mg Documented by: Enoxaparin Sodium (Enoxaparin 100 Mg/1ml Syr) 90 mg SQ Q12 [facility] Stop: 09/06/20 20:59 Last Admin: 08/09/20 09:15 Dose: 90 mg Documented by: Finasteride (Finasteride 5 Mg Tab) 5 mg PO HS [facility] Stop: 08/31/20 21:22 Last Admin: 08/07/20 20:48 Dose: 5 mg Documented by: Fluticasone Propionate (Fluticasone Propionate Na Spr 16 Gm Btl) 2 sprays NA DAILY PRN PRN Reason: Nasal Congestion Stop: 08/31/20 21:22 Last Admin: 08/09/20 01:18 Dose: 2 sprays Documented by: Hydrochlorothiazide (Hydrochlorothiazide 25 Mg Tab) 25 mg PO QAM [facility] Stop: 09/01/20 08:59 Last Admin: 08/06/20 10:12 Dose: Not Given Documented by: Hydroxychloroquine Sulfate (Hydroxychloroquine Sulfate 200 Mg Tab) 200 mg PO QAM [facility] Stop: 09/01/20 08:59 Last Admin: 08/03/20 08:31 Dose: 200 mg Documented by: Hydroxyurea (Hydroxyurea 500 Mg Cap) 500 mg PO QAM [facility] Stop: 09/01/20 08:59 Last Admin: 08/09/20 09:14 Dose: 500 mg Documented by: Dexamethasone Sodium Phosphate (6 mg/ Syringe) 1.5 mls @ 1 mls/min IV DAILY@0900 [facility] Stop: 09/01/20 08:59 Last Admin: 08/09/20 09:14 Dose: 1 mls/min Documented by: Remdesivir 100 mg/ Sodium (Chloride) 250 mls @ 250 mls/hr IV Q24H [facility]; Protocol Stop: 08/13/20 08:59 Last Admin: 08/09/20 09:14 Dose: 250 mls/hr Documented by: Levothyroxine Sodium (Levothyroxine Sodium 125 Mcg Tablet) 125 mcg PO DAILYBB [facility] Stop: 09/01/20 06:29 Last Admin: 08/09/20 05:46 Dose: 125 mcg Documented by: Metoprolol Succinate (Metoprolol Succ 50mg Ext Rel Tab) 50 mg PO PM [facility] Stop: 08/31/20 21:22 Last Admin: 08/08/20 20:00 Dose: 50 mg Documented by: Montelukast Sodium (Montelukast Sodium 10 Mg Tablet) 10 mg PO PM [facility] Stop: 08/31/20 21:22 Last Admin: 08/08/20 20:00 Dose: 10 mg Documented by: Nitroglycerin (Nitroglycerin Sl 0.4 Mg/Tab Tab) 0.4 mg SL UD PRN PRN Reason: Chest Pain Stop: 08/31/20 21:22 Ondansetron HCl (Ondansetron Inj 2 Mg/Ml 2 Ml Vial) 4 mg IV Q6H PRN PRN Reason: Nausea Stop: 08/31/20 21:22 Pantoprazole Sodium ([facility]ole 40 Mg Tab) [facility] Stop: 09/03/20 14:59 Last Admin: 08/09/20 09:14 Dose: 40 mg Documented by: Potassium Chloride (Potassium Chloride Crtab 20 Meq Tabcr) 20 meq PO TID [facility] Stop: 09/05/20 09:29 Last Admin: 08/09/20 09:16 Dose: 20 meq Documented by: Promethazine HCl (Promethazine Hcl 12.5 Mg/10 Ml Udp) 12.5 mg PO Q6H PRN PRN Reason: Cough Stop: 09/02/20 12:46 Last Admin: 08/05/20 11:46 Dose: 12.5 mg Documented by: Sodium Chloride (Sodium Chloride 0.9% 10ml Flush) 30 ml IV Q24H [facility] Stop: 08/13/20 08:01 Sodium Chloride (Sodium Chloride 0.65% Na Soln 45 Ml ([employer])) 2 sprays RICHARD QID PRN PRN Reason: Seasonal Allergies Stop: 09/08/20 09:29 Vitamin D (Cholecalciferol 1,000 Units 25 Mcg Tab) 2,000 units PO [facility] Stop: 09/06/20 08:59 Last Admin: 08/08/20 07:59 Dose: 2,000 units Documented by: Zinc Sulfate (Zinc Sulfate 220 Mg Capsule) [facility] Stop: 09/05/20 18:14 Last Admin: 08/09/20 09:15 Dose: 220 mg Documented by: PG Care Time/CCT Total # of Minutes Spent Total Time Spent with Patient: Total time spent is greater than 50% in coordination of care (as documented) at patient's floor/unit and/or counseling patient: Coding Level of Care Code 11498 Subseq Hosp Care Lvl 3 Diagnoses Acute respiratory failure with hypoxia J96.01 Pneumonia due to COVID-19 virus U07.1; J12.89 Polycythemia vera D45 Hypothyroidism E03.9 Hypertension I10 Asthma J45.909 CKD (chronic kidney disease) N18.9 Melena K92.1 BPH (benign prostatic hyperplasia) N40.0 DVT prophylaxis Z29.9
[2020-08-09] MEDS: SODIUM CHLORIDE 0.9% 10ML FLUSH IV SCH (10:30)
[2020-08-09] MEDS: CHOLECALCIFEROL 1,000 UNITS 25 MCG TAB PO SCH (13:29)
[2020-08-09] MEDS: FINASTERIDE 5 MG TAB PO SCH (21:40)
[2020-08-09] MEDS: MONTELUKAST SODIUM 10 MG TABLET PO SCH (21:41)
[2020-08-09] MEDS: METOPROLOL SUCC 50MG EXT REL TAB PO SCH (21:41)
[2020-08-09] MEDS: ACETAMINOPHEN 325 MG TAB PO PRN (21:55)
[2020-08-10] MEDS: ALBUTEROL HFA 8 GM INHALER INH PRN (05:51)
[2020-08-10] MEDS: LEVOTHYROXINE SODIUM 125 MCG TABLET PO SCH (06:17)
[2020-08-10 06:47] LABS: Hematocrit (blood only) 44.6 % (42-52); Hemoglobin 14.8 g/dL (14.0-18.0); Mean Corpuscular Hemoglobin 34.7 pg (25-34); Mean Corpuscular Hgb Conc 33.2 g/dL (32-36); Mean Corpuscular Volume 104.4 fL (80-100); Mean Platelet Volume 11.5 fL (7.4-10.4); Platelet Count 391 K/uL (130-400); RDW Coefficient of Variation 14.7 % (11.5-14.5); Red Blood Count 4.27 M/uL (4.7-6.1); White Blood Count 7.59 K/uL (4.8-10.8)
[2020-08-10 07:19] LABS: BUN Creatinine Ratio 21.9 (10-20); Calcium 8.7 mg/dl (8.5-10.1); Creatinine Clr Calc Pharmacy 57.2 ml/min; Est GFR (Non-African American) 53.5; Potassium 4.8 mmol/L (3.5-5.1)
[2020-08-10] MEDS: DEXAMETHASONE SOD PHOSPHATE 6 MG in SYRINGE 0 ML IV SCH (08:08)
[2020-08-10] MEDS: BENZONATATE 100 MG CAPSULE PO SCH ×3 (08:08→19:23)
[2020-08-10] MEDS: CHOLECALCIFEROL 1,000 UNITS 25 MCG TAB PO SCH (08:10)
[2020-08-10] MEDS: ZINC SULFATE 220 MG CAPSULE PO SCH (08:10)
[2020-08-10] MEDS: POTASSIUM CHLORIDE CRTAB 20 MEQ TABCR PO SCH ×3 (08:10→19:21)
[2020-08-10] MEDS: ASPIRIN 81 MG ECTAB PO SCH (08:10)
[2020-08-10] MEDS: PANTOprazole 40 MG TAB PO SCH (08:11)
[2020-08-10] MEDS: ENOXAPARIN 100 MG/1ML SYR SQ SCH ×2 (08:11→19:22)
[2020-08-10] MEDS: REMDESIVIR 100 MG in SODIUM CHLORIDE 0.9% 230 ML IV SCH (08:35)
[2020-08-10] MEDS: HYDROXYUREA 500 MG CAP PO SCH (08:53)
[2020-08-10] MEDS: SODIUM CHLORIDE 0.9% 10ML FLUSH IV SCH (09:51)
--- NOTE | 2020-08-10 15:57 | Hospitalist Progress Note ---
Date of Service August 10, 2020 Assessment & Plan (1) Acute respiratory failure with hypoxia: feeling better the past two days tolerating HFNC 40L and 100% FiO2, laying prone much of the day with saturations > 95% when prone high 80's when sitting up CXR 08/08 with worsening b/l pneumonia / developing ARDS. 2nd to COVID-19 pneumonia. Cannot rule out concomitant PE. On 08/07 he was placed on empiric anticoagulation for that purpose. Day #10 of IV decadron 6mg daily, will continue for now as he is still requiring HFNC s/p plasma on 08/02/20. Remdesivir - dose #7 today. Since patient is worsening despite the above will extend the remdesivir course another 5 days for total of 10 days of Rx No evidence of complicating pulmonary edema on exam or exam but can't rule it out 100% Completed 7-day course of rocephin - now off. Completed 5-day course of zithromax - also now off. Cont frequent proning. He tolerates this well. Flutter valve frequently. Incentive ileana frequently. Formal palliative care consult requested to refine goals of care, wishes for intubation/ventilation, etc. Patient ok with intubation/mech ventilation but would not want such for greater than 3 days. He also reports he would NOT want shocks or compressions. This was documented by palliative care team and ordered as such. If refractory hypoxia despite HFNC would need intubated, at this time he appears to be slightly better, admits to feeling better (2) Pneumonia due to COVID-19 virus: see "resp failure" above. slight improvement past two days therapeutic anticoagulation with lovenox begun on 08/07/20. will extend Decadron since he is still on high flow extend remdesivir course to 10 days in total due to clinical worsening/poor response to date. labs are all stable for two days (3) Polycythemia vera: Continue hydroxyurea. H/H and platelets are acceptable. PCV increases risk of VTE - full anticoagulation started 08/07 given worsening hypoxia. (4) Hypothyroidism: Continue levothyroxine 125 mcg daily last TSH was 02/2020 and was high (5) Hypertension: Continue metoprolol tartrate 50 mg p.o. daily and aspirin 81 mg daily. Hold HCTZ given low-normal BPs. (6) Asthma: Without exacerbation. No wheezing Bronchodilators prn. Pulm toilet. Other Rx measures above. (7) CKD (chronic kidney disease): stage 3 CrCl is 40s/50s stable bmp am (8) Melena: concern for such earlier this stay. however, stool was heme negative. H/H stable/acceptable. cont PPI while on steroids. monitor daily CBC. (9) BPH (benign prostatic hyperplasia): cont finasteride (10) DVT prophylaxis: lovenox 90mg BID prognosis remains guarded too ill/weak/hypoxic for any PT/OT at this time Admission and Anticipated Discharge Date Admission Date: August 01, 2020 Subjective patient laying prone a lot today, when in prone position he can keep his saturations > 95% he rests comfortably in that position still not eating very well, decreased taste sensation coughing a lot less and subjectively he feels better each day still requiring 40L and 100 but no distress labs are stable today Review of Systems Review of Systems: All systems reviewed & are unremarkable except as noted in Subjective Constitutional: + fatigue and + weakness; no fever Respiratory: + cough and + dyspnea on exertion Physical Exam Constitutional: well developed, well nourished and + ill appearing; no acute distress Neck: trachea midline, no thyromegaly Respiratory: + labored breathing, + uses accessory muscles, + cough and + tachypneic Auscultation: no crackles, no rales, no rhonchi and no wheezes Cardiovascular: RRR, no murmur, no edema Gastrointestinal (Abdomen): normal bowel sounds, soft, nontender, no hepatosplenomegaly Musculoskeletal: no cyanosis or clubbing, extremities motor strength 5/5 Skin: no rashes, warm and dry Neurologic: patellar DTR's 2+ bilat, sensation intact and PERRL, EOMI, accommodation nl, no face palsy, no dysarthria Psychiatric: A+Ox3, euthymic affect Lymphatic: no cervical or axillary lymphadenopathy Results & Data Results & Data ([facility]) Vital Signs (Past 12 Hours) Vital Signs Temp Pulse Pulse Pulse Resp BP Pulse Ox 08/10/20 11:05 96 H 20 90 08/10/20 11:00 36.9 C 89 24 116/72 91 08/10/20 09:06 36.9 C 77 16 118/71 88 L 08/10/20 07:58 87 08/10/20 07:53 72 22 88 L 08/10/20 05:52 94 H 24 90 Laboratory Results Laboratory Results - last 24 hr 08/10/20 08/10/20 05:57 05:57 WBC 7.59 RBC 4.27 L Hgb 14.8 Hct 44.6 MCV 104.4 H MCH 34.7 H MCHC 33.2 RDW Std Deviation 56.0 H RDW Coeff of Richard 14.7 H Plt Count 391 MPV 11.5 H Sodium 142 Potassium 4.8 D Chloride 112 H Carbon Dioxide 25 Anion Gap 6.0 BUN 28 H Creatinine 1.29 Est Cr Clr Drug Dosing 57.2 Est GFR ( Amer) 62.0 Est GFR (Non-Af Amer) 53.5 BUN/Creatinine Ratio 21.9 H Glucose 94 Calcium 8.7 Medications Administered Current Inpatient Medications Acetaminophen (Acetaminophen 325 Mg Tab) 650 mg PO Q4H PRN PRN Reason: Pain or Fever Stop: 08/31/20 21:22 Last Admin: 08/09/20 21:55 Dose: 650 mg Documented by: Albuterol (Albuterol Hfa 8 Gm Inhaler) 2 puffs INH Q4 PRN PRN Reason: Shortness Of Breath Stop: 08/31/20 21:22 Last Admin: 08/10/20 05:51 Dose: 2 puffs Documented by: Albuterol (Albuterol 0.083% Nebu Soln 3 Ml Vial) 2.5 mg INH Q4 PRN PRN Reason: Shortness Of Breath Stop: 08/31/20 21:22 Aspirin (Aspirin 81 Mg Ectab) 81 mg PO QAM [facility] Stop: 09/01/20 08:59 Last Admin: 08/10/20 08:10 Dose: 81 mg Documented by: Benzonatate (Benzonatate 100 Mg Capsule) 100 mg PO TID [facility] Stop: 09/02/20 12:59 Last Admin: 08/10/20 14:09 Dose: 100 mg Documented by: Enoxaparin Sodium (Enoxaparin 100 Mg/1ml Syr) 90 mg SQ Q12 [facility] Stop: 09/06/20 20:59 Last Admin: 08/10/20 08:11 Dose: 90 mg Documented by: Finasteride (Finasteride 5 Mg Tab) 5 mg PO HS [facility] Stop: 08/31/20 21:22 Last Admin: 08/09/20 21:40 Dose: 5 mg Documented by: Fluticasone Propionate (Fluticasone Propionate Na Spr 16 Gm Btl) 2 sprays NA DAILY PRN PRN Reason: Nasal Congestion Stop: 08/31/20 21:22 Last Admin: 08/09/20 01:18 Dose: 2 sprays Documented by: Hydrochlorothiazide (Hydrochlorothiazide 25 Mg Tab) 25 mg PO QAM [facility] Stop: 09/01/20 08:59 Last Admin: 08/06/20 10:12 Dose: Not Given Documented by: Hydroxychloroquine Sulfate (Hydroxychloroquine Sulfate 200 Mg Tab) 200 mg PO QAM [facility] Stop: 09/01/20 08:59 Last Admin: 08/03/20 08:31 Dose: 200 mg Documented by: Hydroxyurea (Hydroxyurea 500 Mg Cap) 500 mg PO QAM [facility] Stop: 09/01/20 08:59 Last Admin: 08/10/20 08:53 Dose: 500 mg Documented by: Dexamethasone Sodium Phosphate (6 mg/ Syringe) 1.5 mls @ 1 mls/min IV DAILY@0900 [facility] Stop: 09/01/20 08:59 Last Admin: 08/10/20 08:08 Dose: 1 mls/min Documented by: Remdesivir 100 mg/ Sodium (Chloride) 250 mls @ 250 mls/hr IV Q24H [facility]; Protocol Stop: 08/13/20 08:59 Last Infusion: 08/10/20 09:51 Dose: Infused Documented by: Levothyroxine Sodium (Levothyroxine Sodium 125 Mcg Tablet) 125 mcg PO DAILYBB [facility] Stop: 09/01/20 06:29 Last Admin: 08/10/20 06:17 Dose: 125 mcg Documented by: Metoprolol Succinate (Metoprolol Succ 50mg Ext Rel Tab) 50 mg PO PM [facility] Stop: 08/31/20 21:22 Last Admin: 08/09/20 21:41 Dose: 50 mg Documented by: Montelukast Sodium (Montelukast Sodium 10 Mg Tablet) 10 mg PO PM [facility] Stop: 08/31/20 21:22 Last Admin: 08/09/20 21:41 Dose: 10 mg Documented by: Nitroglycerin (Nitroglycerin Sl 0.4 Mg/Tab Tab) 0.4 mg SL UD PRN PRN Reason: Chest Pain Stop: 08/31/20 21:22 Ondansetron HCl (Ondansetron Inj 2 Mg/Ml 2 Ml Vial) 4 mg IV Q6H PRN PRN Reason: Nausea Stop: 08/31/20 21:22 Pantoprazole Sodium (Pantoprazole 40 Mg Tab) [facility] Stop: 09/03/20 14:59 Last Admin: 08/10/20 08:11 Dose: 40 mg Documented by: Potassium Chloride (Potassium Chloride Crtab 20 Meq Tabcr) 20 meq PO TID [facility] Stop: 09/05/20 09:29 Last Admin: 08/10/20 14:08 Dose: Not Given Documented by: Promethazine HCl (Promethazine Hcl 12.5 Mg/10 Ml Udp) 12.5 mg PO Q6H PRN PRN Reason: Cough Stop: 09/02/20 12:46 Last Admin: 08/05/20 11:46 Dose: 12.5 mg Documented by: Sodium Chloride (Sodium Chloride 0.9% 10ml Flush) 30 ml IV Q24H [facility] Stop: 08/13/20 08:01 Last Admin: 08/10/20 09:51 Dose: 30 ml Documented by: Sodium Chloride (Sodium Chloride 0.65% Na Soln 45 Ml ([place])) 2 sprays RICHARD QID PRN PRN Reason: Seasonal Allergies Stop: 09/08/20 09:29 Vitamin D (Cholecalciferol 1,000 Units 25 Mcg Tab) 2,000 units PO [facility] Stop: 09/06/20 08:59 Last Admin: 08/10/20 08:10 Dose: 2,000 units Documented by: Zinc Sulfate (Zinc Sulfate 220 Mg Capsule) 220 mg PO [facility] Stop: 09/05/20 18:14 Last Admin: 08/10/20 08:10 Dose: 220 mg Documented by: PG Care Time/CCT Total # of Minutes Spent Total Time Spent with Patient: Total time spent is greater than 50% in coordination of care (as documented) at patient's floor/unit and/or counseling patient: Coding Level of Care Code 41393 Subseq Hosp Care Lvl 3 Diagnoses Acute respiratory failure with hypoxia J96.01 Pneumonia due to COVID-19 virus U07.1; J12.89 Polycythemia vera D45 Hypothyroidism E03.9 Hypertension I10 Asthma J45.909 CKD (chronic kidney disease) N18.9 Melena K92.1 BPH (benign prostatic hyperplasia) N40.0 DVT prophylaxis Z29.9
[2020-08-10] MEDS: FINASTERIDE 5 MG TAB PO SCH (19:23)
[2020-08-10] MEDS: MONTELUKAST SODIUM 10 MG TABLET PO SCH (19:24)
[2020-08-10] MEDS: METOPROLOL SUCC 50MG EXT REL TAB PO SCH (19:24)
[2020-08-11] MEDS: LEVOTHYROXINE SODIUM 125 MCG TABLET PO SCH (07:05)
[2020-08-11] MEDS: ZINC SULFATE 220 MG CAPSULE PO SCH (08:23)
[2020-08-11] MEDS: CHOLECALCIFEROL 1,000 UNITS 25 MCG TAB PO SCH (08:23)
[2020-08-11] MEDS: DEXAMETHASONE SOD PHOSPHATE 6 MG in SYRINGE 0 ML IV SCH (08:23)
[2020-08-11] MEDS: ASPIRIN 81 MG ECTAB PO SCH (08:23)
[2020-08-11] MEDS: ENOXAPARIN 100 MG/1ML SYR SQ SCH ×2 (08:23→22:35)
[2020-08-11] MEDS: BENZONATATE 100 MG CAPSULE PO SCH ×3 (08:23→22:33)
[2020-08-11] MEDS: PANTOprazole 40 MG TAB PO SCH (08:23)
[2020-08-11] MEDS: ACETAMINOPHEN 325 MG TAB PO PRN (08:27)
[2020-08-11] MEDS: HYDROXYUREA 500 MG CAP PO SCH (08:31)
[2020-08-11 08:32] LABS: BUN Creatinine Ratio 22.8 (10-20); Calcium 8.7 mg/dl (8.5-10.1); Est GFR (African American) 68.4; Potassium 4.4 mmol/L (3.5-5.1)
[2020-08-11] MEDS: REMDESIVIR 100 MG in SODIUM CHLORIDE 0.9% 230 ML IV SCH (08:43)
[2020-08-11] MEDS: SODIUM CHLORIDE 0.9% 10ML FLUSH IV SCH (08:45)
--- NOTE | 2020-08-11 15:13 | Hospitalist Progress Note ---
Date of Service August 11, 2020 Assessment & Plan (1) Acute respiratory failure with hypoxia: feeling better the past three days tolerating HFNC 40L and 100% FiO2, laying prone much of the day with saturations > 95% when prone high 80's when sitting up but he has no symptoms of dyspnea CXR 08/08 with worsening b/l pneumonia / developing ARDS, no need to repeat at this time 2nd to COVID-19 pneumonia. Cannot rule out concomitant PE. On 08/07 he was placed on empiric anticoagulation for that purpose will continue this until he improves Day #11 of IV decadron 6mg daily, will continue for now as he is still requiring HFNC s/p plasma on 08/02/20. Remdesivir - dose #8 today. Since patient is worsening despite the above will extend the remdesivir course another 5 days for total of 10 days of Rx Completed 7-day course of rocephin - now off. Completed 5-day course of zithromax - also now off. Cont frequent proning. He tolerates this well. Flutter valve frequently. Incentive ileana frequently. Formal palliative care consult requested to refine goals of care, wishes for intubation/ventilation, etc. Patient ok with intubation/mech ventilation but would not want such for greater than 3 days. He also reports he would NOT want shocks or compressions. This was documented by palliative care team and ordered as such. If refractory hypoxia despite HFNC would need intubated, at this time he appears to be stable, numbers look worse than how he feels we discussed that he will be here at least 1-2 more weeks, told him to take it one day at a time if he continues to be on high flow at the end of this next week but he is stable and eating then consider LTACH (2) Pneumonia due to COVID-19 virus: see "resp failure" above. slight improvement past three days therapeutic anticoagulation with lovenox begun on 08/07/20, continue for now will extend Decadron since he is still on high flow, today is day 11 extend remdesivir course to 10 days in total due to clinical worsening/poor response to date, today is day 8 labs are all stable (3) Polycythemia vera: Continue hydroxyurea. H/H and platelets are acceptable. PCV increases risk of VTE - full anticoagulation started 08/07 given worsening hypoxia. (4) Hypothyroidism: Continue levothyroxine 125 mcg daily last TSH was 02/2020 and was high (5) Hypertension: Continue metoprolol tartrate 50 mg p.o. daily and aspirin 81 mg daily. Hold HCTZ given low-normal BPs. (6) Asthma: Without exacerbation. No wheezing Bronchodilators prn. Pulm toilet. Other Rx measures above. (7) CKD (chronic kidney disease): stage 3 CrCl is 40s/50s stable with Cr of 1.1 and electrolytes stable (8) Melena: concern for such earlier this stay. however, stool was heme negative. H/H stable/acceptable. cont PPI while on steroids. monitor daily CBC. (9) BPH (benign prostatic hyperplasia): cont finasteride (10) DVT prophylaxis: lovenox 90mg BID prognosis remains guarded too ill/weak/hypoxic for any PT/OT at this time anticipate him remaining on HFNC through this week, could consider LTACH by end of the week Admission and Anticipated Discharge Date Admission Date: August 01, 2020 Subjective patient eating more today, said he had a banana, bowl of cereal and juice for breakfast discussed trying to drink Boost between meals, he says it is too thick for him, suggested putting on ice, he will try saturations 90% on 50L and 100% FiO2, he got a bath and then laid prone, improved his saturations he is not in any distress, he is speaking in full sentences, just profoundly hypoxic has a dry cough no other complaints updated RN outside of the room, she will continue to encourage him to be on his stomach as much as possible Review of Systems Review of Systems: All systems reviewed & are unremarkable except as noted in Subjective Physical Exam Constitutional: well developed, well nourished and + ill appearing; no acute distress Neck: trachea midline, no thyromegaly Respiratory: + cough and + tachypneic; no respiratory distress Auscultation: no crackles, no rales, no rhonchi and no wheezes Cardiovascular: RRR, no murmur, no edema Gastrointestinal (Abdomen): normal bowel sounds, soft, nontender, no hepatosplenomegaly Musculoskeletal: no cyanosis or clubbing, extremities motor strength 5/5 Skin: no rashes, warm and dry Neurologic: patellar DTR's 2+ bilat, sensation intact and PERRL, EOMI, accommodation nl, no face palsy, no dysarthria Psychiatric: A+Ox3, euthymic affect Lymphatic: no cervical or axillary lymphadenopathy Results & Data Results & Data ([facility]) Vital Signs (Past 12 Hours) Vital Signs Temp Pulse Pulse Resp BP BP Pulse Ox 08/11/20 14:45 36.6 C 71 24 111/60 87 L 08/11/20 11:18 70 17 95 08/11/20 10:50 36.7 C 78 26 H 105/61 86 L 08/11/20 07:59 36.5 C 66 23 119/75 94 08/11/20 07:20 67 19 08/11/20 03:39 36.9 C 69 20 124/78 87 L 08/11/20 03:38 72 20 89 L Laboratory Results Laboratory Results - last 24 hr 08/11/20 07:29 Sodium 139 Potassium 4.4 Chloride 109 H Carbon Dioxide 26 Anion Gap 5.0 BUN 27 H Creatinine 1.19 Est Cr Clr Drug Dosing 62.0 Est GFR ( Amer) 68.4 Est GFR (Non-Af Amer) 59.0 BUN/Creatinine Ratio 22.8 H Glucose 92 Calcium 8.7 Medications Administered Current Inpatient Medications Acetaminophen (Acetaminophen 325 Mg Tab) 650 mg PO Q4H PRN PRN Reason: Pain or Fever Stop: 08/31/20 21:22 Last Admin: 08/11/20 08:27 Dose: 650 mg Documented by: Albuterol (Albuterol Hfa 8 Gm Inhaler) 2 puffs INH Q4 PRN PRN Reason: Shortness Of Breath Stop: 08/31/20 21:22 Last Admin: 08/10/20 05:51 Dose: 2 puffs Documented by: Albuterol (Albuterol 0.083% Nebu Soln 3 Ml Vial) 2.5 mg INH Q4 PRN PRN Reason: Shortness Of Breath Stop: 08/31/20 21:22 Aspirin (Aspirin 81 Mg Ectab) 81 mg PO QAM [facility] Stop: 09/01/20 08:59 Last Admin: 08/11/20 08:23 Dose: 81 mg Documented by: Benzonatate (Benzonatate 100 Mg Capsule) 100 mg PO TID [facility] Stop: 09/02/20 12:59 Last Admin: 08/11/20 14:45 Dose: 100 mg Documented by: Enoxaparin Sodium (Enoxaparin 100 Mg/1ml Syr) 90 mg SQ Q12 [facility] Stop: 09/06/20 20:59 Last Admin: 08/11/20 08:23 Dose: 90 mg Documented by: Finasteride (Finasteride 5 Mg Tab) 5 mg PO HS [facility] Stop: 08/31/20 21:22 Last Admin: 08/10/20 19:23 Dose: 5 mg Documented by: Fluticasone Propionate (Fluticasone Propionate Na Spr 16 Gm Btl) 2 sprays NA DAILY PRN PRN Reason: Nasal Congestion Stop: 08/31/20 21:22 Last Admin: 08/09/20 01:18 Dose: 2 sprays Documented by: Hydrochlorothiazide (Hydrochlorothiazide 25 Mg Tab) 25 mg PO QAM [facility] Stop: 09/01/20 08:59 Last Admin: 08/06/20 10:12 Dose: Not Given Documented by: Hydroxychloroquine Sulfate (Hydroxychloroquine Sulfate 200 Mg Tab) 200 mg PO QAM [facility] Stop: 09/01/20 08:59 Last Admin: 08/03/20 08:31 Dose: 200 mg Documented by: Hydroxyurea (Hydroxyurea 500 Mg Cap) 500 mg PO QAM [facility] Stop: 09/01/20 08:59 Last Admin: 08/11/20 08:31 Dose: 500 mg Documented by: Dexamethasone Sodium Phosphate (6 mg/ Syringe) 1.5 mls @ 1 mls/min IV DAILY@0900 [facility] Stop: 09/01/20 08:59 Last Admin: 08/11/20 08:23 Dose: 1 mls/min Documented by: Remdesivir 100 mg/ Sodium (Chloride) 250 mls @ 250 mls/hr IV Q24H [facility]; Protocol Stop: 08/13/20 08:59 Last Infusion: 08/11/20 10:07 Dose: Infused Documented by: Levothyroxine Sodium (Levothyroxine Sodium 125 Mcg Tablet) 125 mcg PO DAILYBB [facility] Stop: 09/01/20 06:29 Last Admin: 08/11/20 07:05 Dose: 125 mcg Documented by: Metoprolol Succinate (Metoprolol Succ 50mg Ext Rel Tab) 50 mg PO PM [facility] Stop: 08/31/20 21:22 Last Admin: 08/10/20 19:24 Dose: 50 mg Documented by: Montelukast Sodium (Montelukast Sodium 10 Mg Tablet) 10 mg PO PM [facility] Stop: 08/31/20 21:22 Last Admin: 08/10/20 19:24 Dose: 10 mg Documented by: Nitroglycerin (Nitroglycerin Sl 0.4 Mg/Tab Tab) 0.4 mg SL UD PRN PRN Reason: Chest Pain Stop: 08/31/20 21:22 Ondansetron HCl (Ondansetron Inj 2 Mg/Ml 2 Ml Vial) 4 mg IV Q6H PRN PRN Reason: Nausea Stop: 08/31/20 21:22 Pantoprazole Sodium (Pantoprazole 40 Mg Tab) [facility] [place] Stop: 09/03/20 14:59 Last Admin: 08/11/20 08:23 Dose: 40 mg Documented by: Promethazine HCl (Promethazine Hcl 12.5 Mg/10 Ml Udp) 12.5 mg PO Q6H PRN PRN Reason: Cough Stop: 09/02/20 12:46 Last Admin: 08/05/20 11:46 Dose: 12.5 mg Documented by: Sodium Chloride (Sodium Chloride 0.9% 10ml Flush) 30 ml IV Q24H [facility] Stop: 08/13/20 08:01 Last Admin: 08/11/20 08:45 Dose: 30 ml Documented by: Sodium Chloride (Sodium Chloride 0.65% Na Soln 45 Ml ([place])) 2 sprays RICHARD QID PRN PRN Reason: Seasonal Allergies Stop: 09/08/20 09:29 Vitamin D (Cholecalciferol 1,000 Units 25 Mcg Tab) 2,000 units PO [facility] Stop: 09/06/20 08:59 Last Admin: 08/11/20 08:23 Dose: 2,000 units Documented by: Zinc Sulfate (Zinc Sulfate 220 Mg Capsule) 220 mg PO [facility] Stop: 09/05/20 18:14 Last Admin: 08/11/20 08:23 Dose: 220 mg Documented by: PG Care Time/CCT Total # of Minutes Spent Total Time Spent with Patient: Total time spent is greater than 50% in coordination of care (as documented) at patient's floor/unit and/or counseling patient: Coding Level of Care Code 51853 Subseq Hosp Care Lvl 3 Diagnoses Acute respiratory failure with hypoxia J96.01 Pneumonia due to COVID-19 virus U07.1; J12.89 Polycythemia vera D45 Hypothyroidism E03.9 Hypertension I10 Asthma J45.909 CKD (chronic kidney disease) N18.9 Melena K92.1 BPH (benign prostatic hyperplasia) N40.0 DVT prophylaxis Z29.9
[2020-08-11] MEDS ORDERED: MELATONIN 3 MG TAB PO PRN (22:03)
[2020-08-11] MEDS: METOPROLOL SUCC 50MG EXT REL TAB PO SCH (22:33)
[2020-08-11] MEDS: FINASTERIDE 5 MG TAB PO SCH (22:33)
[2020-08-11] MEDS: MONTELUKAST SODIUM 10 MG TABLET PO SCH (22:33)
[2020-08-12] MEDS: LEVOTHYROXINE SODIUM 125 MCG TABLET PO SCH (06:15)
--- NOTE | 2020-08-12 08:23 | Hospitalist Progress Note ---
Date of Service August 12, 2020 Assessment & Plan (1) Acute respiratory failure with hypoxia: HFNC 50L and 100% FiO2, laying prone much of the day with saturations improve when prone high 80's when sitting up but he has no symptoms of dyspnea pt was concerned that he did have some issues last pm is willing to try bipap if needed as long as someone works with him CXR 08/08 with worsening b/l pneumonia / developing ARDS, will only repeat if clinical deterioration 2nd to COVID-19 pneumonia. Cannot rule out concomitant PE. On 08/07 he was placed on empiric anticoagulation for that purpose will continue this until he improves IV decadron 6mg daily, will continue for now as he is still requiring HFNC s/p plasma on 08/02/20. Remdesivir - complete 10 d course Completed 7-day course of rocephin - now off. Completed 5-day course of zithromax - also now off. Cont frequent proning. He tolerates this well. Flutter valve frequently. Incentive ileana frequently. Formal palliative care consult requested to refine goals of care, wishes for intubation/ventilation, etc. Patient ok with intubation/mech ventilation but would not want such for greater than 3 days. He also reports he would NOT want shocks or compressions. This was documented by palliative care team and ordered as such. If refractory hypoxia despite HFNC would need intubated, at this time he appears to be stable, numbers look worse than how he feels we discussed that he will be here at least 1-2 more weeks, told him to take it one day at a time if he continues to be on high flow at the end of this next week but he is stable and eating then consider LTACH (2) Pneumonia due to COVID-19 virus: see "resp failure" above. slight improvement past three days therapeutic anticoagulation with lovenox begun on 08/07/20, continue for now will extend Decadron since he is still on high flow extend remdesivir course to 10 days in total due to clinical worsening/poor response to date, ld 08/13/20 (3) Polycythemia vera: Continue hydroxyurea. H/H and platelets are acceptable. PCV increases risk of VTE - full anticoagulation started 08/07 given worsening hypoxia. (4) Hypothyroidism: Continue levothyroxine 125 mcg daily last TSH was 02/2020 and was high (5) Hypertension: Continue metoprolol tartrate 50 mg p.o. daily and aspirin 81 mg daily. Hold HCTZ given low-normal BPs. (6) Asthma: Without exacerbation. No wheezing Bronchodilators prn. Pulm toilet. Other Rx measures above. (7) CKD (chronic kidney disease): stage 3 CrCl is 40s/50s stable with Cr of 1.1 and electrolytes stable (8) Melena: concern for such earlier this stay. however, stool was heme negative. H/H stable/acceptable. cont PPI while on steroids. monitor daily CBC. (9) BPH (benign prostatic hyperplasia): cont finasteride (10) DVT prophylaxis: lovenox 90mg BID prognosis remains guarded too ill/weak/hypoxic for any PT/OT at this time anticipate him remaining on HFNC through this week, would certainly need rehab if recovers Admission and Anticipated Discharge Date Admission Date: August 01, 2020 Subjective Pt has questions about if he were to progress to intubation, at this time he is considering this, he did not tolerate BiPap due to pain at the bridge of his nose, but is willing to retry bipap especially for sleep if there can be some adjustment for his comfort saturations 90% on 50L and 100% FiO2, attempting to lay prone, as much as possible improved his saturations he is in mild to moverate distress, becomes breathless easily, just profoundly hypoxic has persistent cough Review of Systems Review of Systems: moderate distress and fatigue, tachypneic no headache, blurry or double vision no speech or swallowing issues no chest pain, pressure or palpitations breathless ness and shortness of breath no abdominal pain, nausea or vomiting, no further diarrhea no dysuria, hematuria or frequency no focal joint pain or swelling no back pain, CVA tenderness or radicular pain no bruising, bleeding or rashes no focal signs of weakness or numbness or altered sensation no complaints of anxiety or depression. Physical Exam Physical Exam: The patient appeared moderately ill, Vital signs as documented. Head exam is normocephalic atraumatic no scleral icterus Neck is without JVD, thyromegaly, or carotid bruits. Lungs are with rales continued at bases Cardiac exam, Rhythm is regular.. No murmurs, rubs or gallops. Abdominal exam reveals normal bowel sounds, soft non tender, no masses Extremities are nonedematous and only minor abrasions to knees Neurologic exam is alert and oriented, no focal loss of strength or sensation Skin is without bruises or rashes Psychologically is without concerns for depression. Results & Data Results & Data ([facility]) Vital Signs (Past 12 Hours) Vital Signs Temp Pulse Resp BP BP Pulse Ox 08/12/20 07:53 62 20 82 L 08/12/20 07:35 98.2 F 85 20 120/70 08/12/20 04:19 98.1 F 83 22 133/58 L 82 L 08/12/20 03:11 68 18 92 08/11/20 23:11 68 20 94 PG Care Time/CCT Total # of Minutes Spent Total Time Spent with Patient: Total time spent is greater than 50% in coordination of care (as documented) at patient's floor/unit and/or counseling patient: Coding Level of Care Code 01705 Subseq Hosp Care Lvl 3 Diagnoses Acute respiratory failure with hypoxia J96.01 Pneumonia due to COVID-19 virus U07.1; J12.89 Polycythemia vera D45 Hypothyroidism E03.9 Hypertension I10 Asthma J45.909 CKD (chronic kidney disease) N18.9 Melena K92.1 BPH (benign prostatic hyperplasia) N40.0 DVT prophylaxis Z29.9
[2020-08-12] MEDS: ASPIRIN 81 MG ECTAB PO SCH (08:58)
[2020-08-12] MEDS: SODIUM CHLORIDE 0.9% 10ML FLUSH IV SCH (08:58)
[2020-08-12] MEDS: REMDESIVIR 100 MG in SODIUM CHLORIDE 0.9% 230 ML IV SCH (08:58)
[2020-08-12] MEDS: DEXAMETHASONE SOD PHOSPHATE 6 MG in SYRINGE 0 ML IV SCH (08:58)
[2020-08-12] MEDS: CHOLECALCIFEROL 1,000 UNITS 25 MCG TAB PO SCH (08:59)
[2020-08-12] MEDS: HYDROXYUREA 500 MG CAP PO SCH (08:59)
[2020-08-12] MEDS: BENZONATATE 100 MG CAPSULE PO SCH ×3 (08:59→20:31)
[2020-08-12] MEDS: PANTOprazole 40 MG TAB PO SCH (08:59)
[2020-08-12] MEDS: ENOXAPARIN 100 MG/1ML SYR SQ SCH ×2 (08:59→20:28)
[2020-08-12] MEDS: ZINC SULFATE 220 MG CAPSULE PO SCH (08:59)
[2020-08-12] MEDS: MONTELUKAST SODIUM 10 MG TABLET PO SCH (20:31)
[2020-08-12] MEDS: FINASTERIDE 5 MG TAB PO SCH (20:31)
[2020-08-12] MEDS: METOPROLOL SUCC 50MG EXT REL TAB PO SCH (20:31)
[2020-08-13] MEDS: LEVOTHYROXINE SODIUM 125 MCG TABLET PO SCH (05:48)
[2020-08-13] MEDS: REMDESIVIR 100 MG in SODIUM CHLORIDE 0.9% 230 ML IV SCH (07:45)
--- NOTE | 2020-08-13 08:46 | Hospitalist Progress Note ---
Date of Service August 13, 2020 Assessment & Plan (1) Acute respiratory failure with hypoxia: Pt continues to escalate his oxygen need, HFNC 60L and 100% FiO2, laying prone much of the day with saturations improve when prone high 80's when sitting up but he has no symptoms of dyspnea did not tolerate Bipap, CXR 08/13 with worsening b/l pneumonia / developing ARDS, procalcitonin remains negative, bnp also negative 2nd to COVID-19 pneumonia. On 08/07 he was placed on empiric anticoagulation for that purpose pulmonary evaluation 08/13 with continued supportive care IV decadron 6mg daily, will continue for now as he is still requiring HFNC s/p plasma on 08/02/20. Remdesivir - completed 10 d course Completed 7-day course of rocephin - now off. Completed 5-day course of zithromax - also now off. Cont frequent proning. He tolerates this well. Flutter valve frequently. Incentive ileana frequently. Formal palliative care consult requested to refine goals of care, wishes for intubation/ventilation, etc. Patient ok with intubation/mech ventilation but would not want such for greater than 3 days. He also reports he would NOT want shocks or compressions. This was documented by palliative care team and ordered as such. (2) Pneumonia due to COVID-19 virus: see "resp failure" above. slight improvement past three days therapeutic anticoagulation with lovenox begun on 08/07/20 will extend Decadron since he is still on high flow extend remdesivir course to 10 days in total due to clinical worsening/poor response to date, ld 08/13/20 (3) Polycythemia vera: Continue hydroxyurea. H/H and platelets are acceptable. PCV increases risk of VTE - full anticoagulation started 08/07 given worsening hypoxia. (4) Hypothyroidism: Continue levothyroxine 125 mcg daily last TSH was 02/2020 and was high (5) Hypertension: Continue metoprolol tartrate 50 mg p.o. daily and aspirin 81 mg daily. Hold HCTZ (6) Asthma: Without exacerbation. No wheezing Bronchodilators prn. Pulm toilet. Other Rx measures above. (7) CKD (chronic kidney disease): stage 3 CrCl is 40s/50s stable with Cr of 1.1 and electrolytes stable (8) Melena: concern for such earlier this stay. however, stool was heme negative. H/H stable/acceptable. cont PPI while on steroids. make bid monitor daily CBC. (9) BPH (benign prostatic hyperplasia): cont finasteride (10) DVT prophylaxis: lovenox 90mg BID prognosis remains guarded updated both son and daughter 08/13 will try to coordinate a zoom call on his birthday will limit non family call ins per family request too ill/weak/hypoxic for any PT/OT at this time anticipate him remaining on HFNC through this week, would certainly need rehab if recovers Admission and Anticipated Discharge Date Admission Date: August 01, 2020 markos Lind [phone] Subjective Pt has questions about if he were to progress to intubation, at this time he is considering this, he continues to not tolerate BiPap due to pain at the bridge of his nose He was seen by Dr Sommer and recommendation are supportive care at this time, only to progress to ventilation if extermus saturations 90% on 50L and 100% FiO2, attempting to lay prone, as much as possible improved his saturations he is in mild to moderate distress, becomes breathless easily, just profoundly hypoxic has persistent cough Review of Systems Review of Systems: moderate distress and fatigue, tachypneic no headache, blurry or double vision no speech or swallowing issues no chest pain, pressure or palpitations breathless ness and shortness of breath no abdominal pain, nausea or vomiting, no further diarrhea no dysuria, hematuria or frequency no focal joint pain or swelling no back pain, CVA tenderness or radicular pain no bruising, bleeding or rashes no focal signs of weakness or numbness or altered sensation no complaints of anxiety or depression. Physical Exam Physical Exam: The patient appeared moderately ill, Vital signs as documented. Head exam is normocephalic atraumatic no scleral icterus Neck is without JVD, thyromegaly, or carotid bruits. Lungs are with rales continued at bases Cardiac exam, Rhythm is regular.. No murmurs, rubs or gallops. Abdominal exam reveals normal bowel sounds, soft non tender, no masses Extremities are nonedematous and only minor abrasions to knees Neurologic exam is alert and oriented, no focal loss of strength or sensation Skin is without bruises or rashes Psychologically is without concerns for depression. Results & Data Results & Data ([facility]) Vital Signs (Past 12 Hours) Vital Signs Temp Pulse Pulse Resp BP Pulse Ox Pulse Ox 08/13/20 07:45 98.2 F 80 21 112/67 90 08/13/20 03:59 98.1 F 84 20 131/69 93 08/13/20 02:14 70 22 90 08/12/20 23:31 80 24 90 08/12/20 22:57 71 18 121/77 90 08/12/20 22:00 71 91 08/12/20 21:00 70 20 95 PG Care Time/CCT Total # of Minutes Spent Total Time Spent with Patient: Total time spent is greater than 50% in coordination of care (as documented) at patient's floor/unit and/or counseling patient: Coding Level of Care Code 47860 Subseq Hosp Care Lvl 3 Diagnoses Acute respiratory failure with hypoxia J96.01 Pneumonia due to COVID-19 virus U07.1; J12.89 Polycythemia vera D45 Hypothyroidism E03.9 Hypertension I10 Asthma J45.909 CKD (chronic kidney disease) N18.9 Melena K92.1 BPH (benign prostatic hyperplasia) N40.0 DVT prophylaxis Z29.9
[2020-08-13] MEDS: SODIUM CHLORIDE 0.9% 10ML FLUSH IV SCH (08:57)
[2020-08-13] MEDS: DEXAMETHASONE SOD PHOSPHATE 6 MG in SYRINGE 0 ML IV SCH (09:04)
[2020-08-13] MEDS: PANTOprazole 40 MG TAB PO SCH (09:06)
[2020-08-13] MEDS: ZINC SULFATE 220 MG CAPSULE PO SCH (09:07)
[2020-08-13] MEDS: BENZONATATE 100 MG CAPSULE PO SCH ×3 (09:07→20:22)
[2020-08-13] MEDS: ASPIRIN 81 MG ECTAB PO SCH (09:08)
[2020-08-13] MEDS: CHOLECALCIFEROL 1,000 UNITS 25 MCG TAB PO SCH (09:08)
[2020-08-13] MEDS: HYDROXYUREA 500 MG CAP PO SCH (09:08)
[2020-08-13] MEDS: ENOXAPARIN 100 MG/1ML SYR SQ SCH (09:08)
[2020-08-13 09:33] LABS: Basophils # (auto) 0.02 K/uL (0-0.2); Basophils % (auto) 0.1 %; Eosinophils # (auto) 0.05 K/uL (0-0.5); Eosinophils % (auto) 0.4 %; Hematocrit (blood only) 44.9 % (42-52); Hemoglobin 15.2 g/dL (14.0-18.0); Immature Granulocytes # (auto) 0.11 K/uL (0.00-0.02); Immature Granulocytes % (auto) 0.8 %; Lymphocytes # (auto) 0.95 K/uL (1.2-3.4); Lymphocytes % (auto) 6.7 %; Mean Corpuscular Hemoglobin 34.9 pg (25-34); Mean Corpuscular Hgb Conc 33.9 g/dL (32-36); Mean Platelet Volume 11.3 fL (7.4-10.4); Monocytes # (auto) 0.93 K/uL (0.11-0.59); Monocytes % (auto) 6.6 %; Neutrophils # (auto) 12.05 K/uL (1.4-6.5); Neutrophils % (auto) 85.4 %; Platelet Count 417 K/uL (130-400); RDW Coefficient of Variation 14.8 % (11.5-14.5); RDW Standard Deviation 55.4 fL (36.4-46.3); Red Blood Count 4.36 M/uL (4.7-6.1); White Blood Count 14.11 K/uL (4.8-10.8)
[2020-08-13 09:44] LABS: D Dimer 2350 ug/L FEU (0-500)
[2020-08-13 10:00] LABS: BUN Creatinine Ratio 18.3 (10-20); Calcium 8.4 mg/dl (8.5-10.1); Creatinine Clr Calc Pharmacy 63.6 ml/min; Est GFR (African American) 70.5; Est GFR (Non-African American) 60.8; Potassium 4.2 mmol/L (3.5-5.1)
--- NOTE | 2020-08-13 11:39 | XRay Report ---
SINGLE VIEW CHEST CLINICAL HISTORY: Covid pneumonia. FINDINGS: 2 AP, portable, upright chest radiographs are compared to study dated 08/08/2020. The heart is mildly enlarged. Multifocal airspace consolidation has increased as compared to 08/08/2020. Trace pleural effusions are suspected. No pneumothorax is seen. The skeletal structures are osteopenic. Th e bony thorax is grossly intact. Arthritic change is seen in the shoulders. IMPRESSION: There is increasing multifocal airspace consolidation seen throughout both lungs as jadon red to 08/08/2020. ACT 112: Negative or not required by law. Electronically signed by: Barrington Turner M.D. 08/13/2020 11:37 AM
[2020-08-13] MEDS: ACETAMINOPHEN 325 MG TAB PO PRN (13:19)
[2020-08-13] MEDS ORDERED: SODIUM CHLORIDE 0.9% 1000ML 500 ML IV ONE (13:41)
--- NOTE | 2020-08-13 14:21 | Pulmonary Consultation ---
Date of Consultation August 13, 2020 Assessment & Plan (1) Acute respiratory failure with hypoxia: Patient has completed a 10-day course of remdesivir and Decadron. I do not see any further role for remdesivir or Decadron at this time. I would recommend weaning him off Decadron. He is at risk for critical illness myopathy that may be worse with steroids given the duration of steroids he has been requiring and the lack of physical activity. He is also at risk for GI bleed given the aspirin, Lovenox and steroids that he is on. I would recommend continuing pantoprazole. His D-dimer has increased from 910 on 08/07 to 2350 on 08/13/2020. The increase in D-dimer is a nonspecific finding. He has evidence of increasing multifocal pneumonia. His procalcitonin was negative. This is likely progression of his underlying Covid pneumonia and a inflammatory response. He is certainly at risk for fibroproliferative ARDS. I would not recommend mechanical ventilation unless he becomes increasingly dyspneic and has hypoxia refractory to high flow nasal cannula. I had a long discussion with the patient regarding his CODE STATUS. He indicated that his living will notes that he is a DNR/DNI. His underwent a prolonged illness and apparently vegetative state prior to . He does not want a similar experience. He indicated to me that he would like to be a DNR/DNI. However, after discussion with the hospitalist, the patient indicated to the hospitalist that he would still like to be a conditional code meaning that he is okay for intubation at this time. The hospitalist will discuss with the patient further. Palliative care consultation from earlier during hospitalization is noted. I indicated to the patient that patient's who undergo intubation for severe COVID-19 in his age group generally do not have good outcomes. At this time, pulmonary will follow on an as-needed basis. Please call with questions. Thank you for the consult. I did have a discussion with the palliative care nurse practitioner and the hospitalist. (2) Palliative care encounter: (3) Acute respiratory failure with hypoxemia: (4) Pneumonia due to COVID-19 virus: History of Present Illness Reason for Consultation: COVID-19 pneumonia Requesting Physician: Dr. Cooley Attending Physician: Malcolm Cooley MD History of Present Illness 74-year-old male with a past medical history of allergic rhinitis, asthma, BPH, diverticulosis, GERD, hypertension and polycythemia vera on hydroxyurea who presented on 08/01/2020 due to increasing shortness of breath over the last 6 days. He was diagnosed with COVID-19 on 07/26. He has been requiring escalating amounts of high flow oxygen. He is currently on 60 L and 100% FiO2. He notes that he is mildly short of breath. He is definitely a bit tachypneic. He denies any significant cough. He is wondering when he will get better. He denies any fevers or chills. He tried BiPAP yesterday, but notes that it was very tight and anxiety provoking. He received convalescent plasma on 08/02. He completed 10-day course of remdesivir. He also completed 5 days of azithromycin and 7 days of Rocephin. He is still on 6 mg of Decadron. He has tried awake and self proning. Notably, he is also on Plaquenil. He is on 90 mg twice daily of enoxaparin. Chest x-ray today demonstrates increasing bilateral multifocal infiltrates. His procalcitonin level was 0.19. WBC count increased to 14,000 from 7500 yesterday. Platelet count increased from 391,030 417,000. Hemoglobin also increased. proBNP of 712. Allergies Allergy/AdvReac Type Severity Reaction Status Date / Time irbesartan Allergy Severe ANGIOEDEMA Verified 08/01/20 15:50 amlodipine Allergy Unknown ITCHING, Verified 08/01/20 15:50 RASH ON ANKLES Home Medications Medication Instructions Recorded Confirmed Type albuterol sulfate 2.5 mg INHALATION Q4 PRN 07/28/18 08/01/20 History albuterol sulfate [ProAir HFA] 2 puff INHALATION Q4 PRN 07/28/18 08/01/20 History aspirin 81 mg PO QAM 07/28/18 08/01/20 History hydroxyurea 500 mg PO QAM 07/28/18 08/01/20 History miscellaneous medical supply #240 ea 04/04/19 05/21/20 Rx fluticasone propionate 50 2 spray INTRANASAL DAILY PRN #47.4 05/18/19 08/01/20 Rx mcg/actuation nasal gm spray,suspension Vitamin D3 200mcg Gummies 400 mcg PO QAM 04/20/20 08/01/20 History celecoxib 200 mg PO QAM PRN 04/20/20 08/01/20 History finasteride 5 mg PO HS 04/20/20 08/01/20 History hydrochlorothiazide 25 mg PO QAM 04/20/20 08/01/20 History hydroxychloroquine 200 mg PO QAM 04/20/20 08/01/20 History metoprolol succinate 50 mg PO PM 04/20/20 08/01/20 History montelukast 10 mg PO PM 04/20/20 08/01/20 History levothyroxine [Synthroid] 125 mcg PO QAM 04/30/20 08/01/20 History ibuprofen [Advil] 400 mg PO Q6H PRN 08/01/20 08/01/20 History Patient History Medical History Allergic rhinitis Asthma exertion induced--inhalers/nebulizer prn BPH with obstruction/lower urinary tract symptoms Chronic back pain Degenerative disc disease Disc degeneration, lumbar Diverticulosis hx GERD (gastroesophageal reflux disease) ocasional Hearing deficit Hypercholesterolemia no medications Hypertension Hypothyroidism Hypoxia Palliative care encounter Pneumonia Polycythemia vera On Hydroxyurea Vitamin D deficiency Surgical History History of arthroscopy of right shoulder History of bilateral cataract extraction History of colonoscopy History of rhinoplasty History of total right knee replacement (TKR) Hx of transurethral resection of prostate Family History Sister Hypertension Father Hypertension Mother Hypertension Brother Prostate cancer Other No pertinent family history in first degree relatives Social History Smoking Status: Never smoker Second Hand Exposure: No; Hx Alcohol Use: Yes Alcohol type: beer and hard liquor Hx Substance Use: No Preferred Language: Belarusian Communication Ability: Effective 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 Beliefs That Will Affect Care: None Current Living Situation: Alone Feels Safe at Home: Yes Assistive Devices: Oxygen - Continuous Review of Systems Review of Systems: All systems reviewed & are unremarkable except as noted in HPI & below Physical Exam Constitutional: WD/WN, vitals as above + ill appearing; no acute distress Eyes: PERRL, conjunctivae normal, anicteric sclerae ENMT: external ear and nose normal, oropharynx normal Neck: trachea midline, no thyromegaly Respiratory: + respiratory distress, + labored breathing and + tachypneic Cardiovascular: RRR, no murmur, no edema Gastrointestinal (Abdomen): normal bowel sounds, soft, nontender, no hepatosplenomegaly Musculoskeletal: no cyanosis or clubbing, extremities motor strength 5/5 Skin: no rashes, warm and dry Neurologic: PERRL, EOMI, accommodation nl, no face palsy, no dysarthria Psychiatric: A+Ox3, euthymic affect Results & Data Results & Data ([facility]) Vital Signs (Past 12 Hours) Vital Signs Temp Pulse Pulse Resp BP Pulse Ox 08/13/20 11:22 98.1 F 81 21 122/73 91 08/13/20 11:07 90 21 87 L 08/13/20 10:15 63 08/13/20 07:45 98.2 F 80 21 112/67 90 08/13/20 03:59 98.1 F 84 20 131/69 93 08/13/20 02:14 70 22 90 I reviewed the vital signs, labs and imaging PG Care Time/CCT Total # of Minutes Spent Total Time Spent with Patient: Total time spent is greater than 50% in coordination of care (as documented) at patient's floor/unit and/or counseling patient: Coding Level of Care Code 39261 Inpt Consult Level 5 Diagnoses Acute respiratory failure with hypoxia J96.01 Palliative care encounter Z51.5 Acute respiratory failure with hypoxemia J96.01 Pneumonia due to COVID-19 virus U07.1; J12.89
[2020-08-13] MEDS: FLUTICASONE PROPIONATE NA SPR 16 GM BTL PRN (16:14)
[2020-08-13] MEDS ORDERED: OXYMETAZOLINE 0.05% 30 ML BTL ONE (18:55)
[2020-08-13] MEDS: PANTOprazole 40 MG in SYRINGE 0 ML IV SCH (20:21)
[2020-08-13] MEDS: MONTELUKAST SODIUM 10 MG TABLET PO SCH (20:22)
[2020-08-13] MEDS: FINASTERIDE 5 MG TAB PO SCH (20:22)
[2020-08-13] MEDS: METOPROLOL SUCC 50MG EXT REL TAB PO SCH (20:22)
[2020-08-13] MEDS ORDERED: PANTOprazole 40 MG TAB PO SCH (21:00)
[2020-08-14] MEDS: LEVOTHYROXINE SODIUM 125 MCG TABLET PO SCH (07:03)
[2020-08-14 07:32] LABS: Creatinine Clr Calc Pharmacy 67.6 ml/min; Est GFR (African American) 76.9; Est GFR (Non-African American) 66.3
[2020-08-14] MEDS: REMDESIVIR 100 MG in SODIUM CHLORIDE 0.9% 230 ML IV SCH (08:07)
[2020-08-14] MEDS: DEXAMETHASONE SOD PHOSPHATE 6 MG in SYRINGE 0 ML IV SCH (08:07)
[2020-08-14] MEDS: PANTOprazole 40 MG in SYRINGE 0 ML IV SCH ×2 (08:07→20:00)
[2020-08-14] MEDS: ASPIRIN 81 MG ECTAB PO SCH (08:08)
[2020-08-14] MEDS: BENZONATATE 100 MG CAPSULE PO SCH ×2 (08:08→14:41)
[2020-08-14] MEDS: HYDROXYUREA 500 MG CAP PO SCH (08:08)
[2020-08-14] MEDS: ZINC SULFATE 220 MG CAPSULE PO SCH (08:08)
[2020-08-14] MEDS: CHOLECALCIFEROL 1,000 UNITS 25 MCG TAB PO SCH (08:09)
[2020-08-14] MEDS: FLUTICASONE PROPIONATE NA SPR 16 GM BTL PRN (08:09)
[2020-08-14] MEDS: ALBUTEROL HFA 8 GM INHALER INH PRN (08:34)
--- NOTE | 2020-08-14 16:38 | Hospitalist Progress Note ---
Date of Service August 14, 2020 Assessment & Plan (1) Acute respiratory failure with hypoxia: Pt continues to have high oxygen need, HFNC 60L and 100% FiO2, laying prone much of the day with saturations improve when prone high 80's when sitting up but he has only mild symptoms of dyspnea did not tolerate Bipap, did have epistaxis from Hi flow oxygen and therapeutic lovenox, did hold lovenox for one day now will return to high dose prophylactic dosing CXR 08/13 with worsening b/l pneumonia / developing ARDS, procalcitonin remains negative, bnp also negative 2nd to COVID-19 pneumonia. On 08/07 he was placed on empiric anticoagulation for that purpose, did not have objective improvement to suggest worsening was from clot burden pulmonary evaluation 08/13 with continued supportive care IV decadron 6mg daily, will continue for now as he is still requiring HFNC s/p plasma on 08/02/20. Remdesivir - completed 10 d course Completed 7-day course of rocephin - now off. Completed 5-day course of zithromax - also now off. with negative procalcitonin, do not suspect bacterial infection Cont frequent proning. He tolerates this well. Flutter valve frequently. Incentive ileana frequently. Formal palliative care consult requested to refine goals of care, wishes for intubation/ventilation, etc. Patient ok with intubation/mech ventilation but would not want such for greater than 3 days. He also reports he would NOT want shocks or compressions. This was documented by palliative care team and ordered as such. markos [phone] daughter, spokes person (2) Pneumonia due to COVID-19 virus: see "resp failure" above. no improvement no worsening therapeutic anticoagulation with lovenox begun on 08/07/20-> epistaxis, stopped 08/13, return to 40 mg sc bid 08/14 will extend Decadron since he is still on high flow extended remdesivir course to 10 days in total due to clinical worsening/poor response to date, LD was 08/13/20 (3) Polycythemia vera: Continue hydroxyurea. H/H and platelets are acceptable. PCV increases risk of VTE - full anticoagulation started 08/07 given worsening hypoxia. (4) Hypothyroidism: Continue levothyroxine 125 mcg daily last TSH was 02/2020 and was high (5) Hypertension: Blood pressures have been lower will reduce dose to 25 mg on 08/15, and aspirin 81 mg daily. Hold HCTZ (6) Asthma: Without exacerbation. No wheezing Bronchodilators prn. Pulm toilet. Other Rx measures above. (7) CKD (chronic kidney disease): stage 3 CrCl is 40s/50s stable and electrolytes stable (8) Melena: concern for such earlier this stay. however, stool was heme negative. H/H stable/acceptable. cont PPI while on steroids. make bid monitor daily CBC. (9) BPH (benign prostatic hyperplasia): cont finasteride (10) DVT prophylaxis: lovenox 40mg BID prognosis remains guarded updated both son and daughter 08/13 will try to coordinate a zoom call on his birthday will limit non family call ins per family request too ill/weak/hypoxic for any PT/OT at this time anticipate him remaining on HFNC through this week, would certainly need rehab if recovers Admission and Anticipated Discharge Date Admission Date: August 01, 2020 Subjective Patient has significant epistaxis last p.m. necessitating stopping therapeutic dosing Lovenox and using Afrin. Patient has hemostasis. He previously suffers from polycythemia and did have normal hemoglobin to start with. Not appear to lose a significant amount of blood to necessitate checking hematology today. Patient has is persistently painful nose from high flow oxygen will use lidocaine jelly to try to reduce his symptoms. We will hold his Flonase which is causing some nasal burning. Overall he is not made much improvement nor any decline today Review of Systems Review of Systems: Moderate distress discomfort and anxiety no headache, blurry or double vision nosebleed has resolved no speech or swallowing issues no chest pain, pressure or palpitations Persistent shortness of breath and dyspnea no abdominal pain, nausea or vomiting, diarrhea or constipation no dysuria, hematuria or frequency no focal joint pain or swelling no back pain, CVA tenderness or radicular pain no bruising, bleeding or rashes no focal signs of weakness or numbness or altered sensation objectively appears to be depressed Physical Exam Physical Exam: The patient appeared depressed and continually significantly ill Vital signs as documented. Head exam is normocephalic atraumatic no scleral icterus Nares showed no active signs of bleeding at this time Neck is without JVD, thyromegaly, or carotid bruits. Lungs are continue with bilateral coarse rales worse on the left clearing on the right Cardiac exam, Rhythm is regular.. No murmurs, rubs or gallops. Abdominal exam reveals normal bowel sounds, soft non tender, no masses Extremities are nonedematous and both pedal pulses are present Neurologic exam is alert and oriented, no focal loss of strength or sensation Skin is without bruises or rashes Psychologically is with concerns for anxiety or depression. Results & Data Results & Data ([facility]) Vital Signs (Past 12 Hours) Vital Signs Temp Pulse Pulse Resp BP BP Pulse Ox 08/14/20 15:15 97.3 F L 69 16 99/63 L 91 08/14/20 14:10 79 22 92 08/14/20 12:05 97.5 F L 87 20 103/59 L 90 08/14/20 08:34 86 22 86 L 08/14/20 08:30 86 22 89 L 08/14/20 08:00 80 08/14/20 07:31 98.8 F 96 H 22 129/73 88 L 08/14/20 05:15 98.1 F 90 18 112/60 91 PG Care Time/CCT Total # of Minutes Spent Total Time Spent with Patient: Total time spent is greater than 50% in coordination of care (as documented) at patient's floor/unit and/or counseling patient: Coding Level of Care Code 48808 Subseq Hosp Care Lvl 3 Diagnoses Acute respiratory failure with hypoxia J96.01 Pneumonia due to COVID-19 virus U07.1; J12.89 Polycythemia vera D45 Hypothyroidism E03.9 Hypertension I10 Asthma J45.909 CKD (chronic kidney disease) N18.9 Melena K92.1 BPH (benign prostatic hyperplasia) N40.0 DVT prophylaxis Z29.9
[2020-08-14] MEDS ORDERED: LORazepam 0.5 MG/1 ML VIAL IV PRN (16:45)
[2020-08-14] MEDS ORDERED: LORazepam 0.5 MG TAB PO PRN (16:45)
[2020-08-14] MEDS ORDERED: ENOXAPARIN INJ 40 MG/0.4 ML SYR SQ SCH (17:00)
[2020-08-14] MEDS: LIDOCAINE 2% JELLY 5 ML TUBE SCH ×2 (18:13→22:37)
[2020-08-14] MEDS: ENOXAPARIN INJ 40 MG/0.4 ML SYR SQ SCH (19:59)
[2020-08-14] MEDS: MONTELUKAST SODIUM 10 MG TABLET PO SCH (20:00)
[2020-08-14] MEDS: FINASTERIDE 5 MG TAB PO SCH (20:00)
[2020-08-15] MEDS ORDERED: SODIUM CHLORIDE 0.9% 1000ML 500 ML IV ONE (06:19)
[2020-08-15] MEDS: ALBUMIN 25% 12.5 GM/50 ML VIAL IV SCH ×2 (06:40→08:30)
[2020-08-15] MEDS: LEVOTHYROXINE SODIUM 125 MCG TABLET PO SCH (06:47)
[2020-08-15 06:57] LABS: HCO3 ABG 20 mmol/L (19-24); Oxygen Saturation ABG 87.2 % (90-95); PCO2 ABG 26 mmHg (35-46); PO2 ABG 51 mmHg (80-95); pH ABG 7.49 (7.35-7.45)
[2020-08-15 06:58] LABS: Allen Test Pos (Pos)
--- NOTE | 2020-08-15 07:45 | XRay Report ---
XR chest 1V portable HISTORY: 74 years-old Male hypoxia acute hypoxia COMPARISON: Chest radiograph 08/13/2020 TECHNIQUE: Portable AP view of the chest FINDINGS: Cardiac silhouette is mildly enlarged. Extensive bilateral mixed interstitial and alveolar opacities have mild to moderate progressed from comparison. No pneumothorax or large pleural effusion. Degenera tive changes of the shoulders and spine. IMPRESSION: Mild to moderate progression of the extensive bilateral pulmonary opacities suggestive of multifocal pneumonia. Superimposed pulmonary edema would be difficult to exclude. ACT 112: Negative or not required by law. The above report was generated using voice recognition software. It may contain grammatical, syntax o r spelling errors. Electronically signed by: Silas Grayson M.D. 08/15/2020 7:44 AM
[2020-08-15 07:48] LABS: Albumin Level 2.7 gm/dl (3.4-5.0); BUN Creatinine Ratio 21.5 (10-20); Calcium 8.6 mg/dl (8.5-10.1); Creatinine Clr Calc Pharmacy 56.2 ml/min; Est GFR (Non-African American) 53.5; Potassium 3.9 mmol/L (3.5-5.1)
[2020-08-15 07:50] LABS: Hematocrit (blood only) 47.6 % (42-52); Hemoglobin 16.3 g/dL (14.0-18.0); Mean Corpuscular Hemoglobin 35.3 pg (25-34); Mean Platelet Volume 11.7 fL (7.4-10.4); Platelet Count 423 K/uL (130-400); RDW Standard Deviation 56.2 fL (36.4-46.3); Red Blood Count 4.62 M/uL (4.7-6.1); White Blood Count 24.45 K/uL (4.8-10.8)
[2020-08-15 07:51] LABS: Mean Corpuscular Hgb Conc 34.2 g/dL (32-36)
[2020-08-15 07:55] LABS: Albumin Globulin Ratio 0.6 (0.9-2); Bilirubin,Total 2.1 mg/dl (0.2-1); Globulin 4.2 gm/dl (2.5-4.0); Total Protein 6.9 gm/dl (6.4-8.2); Troponin I 0.084 ng/ml (0-0.045)
[2020-08-15] MEDS ORDERED: METOPROLOL SUCC 25MG EXT REL TAB PO SCH (09:00)
[2020-08-15] MEDS: PANTOprazole 40 MG in SYRINGE 0 ML IV SCH ×2 (09:17→22:36)
[2020-08-15] MEDS: ASPIRIN 81 MG ECTAB PO SCH (09:18)
[2020-08-15] MEDS: ENOXAPARIN INJ 40 MG/0.4 ML SYR SQ SCH (09:18)
[2020-08-15] MEDS: ZINC SULFATE 220 MG CAPSULE PO SCH (09:18)
[2020-08-15] MEDS: DEXAMETHASONE SOD PHOSPHATE 6 MG in SYRINGE 0 ML IV SCH (09:18)
[2020-08-15] MEDS: LIDOCAINE 2% JELLY 5 ML TUBE SCH (09:19)
[2020-08-15] MEDS: HYDROXYUREA 500 MG CAP PO SCH (09:25)
[2020-08-15] MEDS ORDERED: fentaNYL citrate 100 MCG/2 ML VIAL IV PRN (10:13)
[2020-08-15] MEDS ORDERED: STAT IV Infusion **Titration per Protocol STA ×3 (10:14→17:21)
[2020-08-15] MEDS ORDERED: PROPOFOL BOLUS FROM BAG IV PRN (10:14)
[2020-08-15] MEDS ORDERED: ROCURONIUM BROMIDE 10 MG/ML 5 ML VIAL IV ONE (10:15)
[2020-08-15] MEDS ORDERED: ETOMIDATE 2 MG/ML 20 ML VIAL IV ONE (10:15)
[2020-08-15] MEDS ORDERED: PROPOFOL IV EMULSION 10 MG/ML 100 ML VIAL IV ONE (10:21)
[2020-08-15] MEDS ORDERED: RAPID SEQUENCE INDUCTION BAG ONE (10:30)
[2020-08-15] MEDS: propofoL 1,000 MG/100 ML VIAL IV SCH ×3 (11:20→23:21)
--- NOTE | 2020-08-15 11:29 | Pulmonology Progress Note ---
Date of Service August 15, 2020 Assessment & Plan (1) Acute respiratory failure with hypoxia: Neurologic: Analgesics and sedation: Propofol and fentanyl Delirium precautions Pulmonary: He is requiring very high amounts of FiO2. We will continue lung protective ventilation strategies. We will go ahead and prone him given his severe hypoxia based on his P/F ratio. His procalcitonin is currently 0.46. I will hold on antibiotics at this time. No further indication for Decadron as he has completed a 10-day course. He has likely ongoing inflammatory response related to the COVID-19 infection. He is certainly at risk for superimposed bacterial pneumonia. We will check a repeat procalcitonin tomorrow. Obtain sputum cultures from the of the ET tube. Cardiovascular: I will hold his antihypertensive medication. Will obtain proBNP. Will diurese to maintain net even to slightly negative. No evidence of shock at this point. Gastrointestinal: Continue Protonix twice daily. We will start tube feeds. Renal: His creatinine is trending upward slightly. We will continue to monitor. Replace electrolytes per protocol. Infectious disease: Obtain sputum culture. Obtain procalcitonin tomorrow. We will hold on antibiotics. No indication for remdesivir as he completed a course at this time. Hematologic: Continue hydroxyurea given his polycythemia vera. Continue intermediate dose Lovenox. Endocrine: Insulin protocol per ICU. Lines and tubes: [address] along with the right internal jugular line. VTE prophylaxis: Immediate dose Lovenox CODE STATUS: Full code. I had a very lengthy discussion with the patient regarding his CODE STATUS and he indicated that he would like to try 1 round of CPR and shock in the event that his heart were to stop. This unfortunately is a very significant change from his CODE STATUS earlier during hospitalization. We will continue to have discussions with his family. Family at bedside: None available due to the COVID-19 pandemic Disposition: His prognosis is extremely poor. He is to remain in the ICU. I have personally spent 65 minutes of critical care time in the direct management of this patient. This is a life/limb threatening event. This includes time spent evaluating patient, direct bedside care, chart review, placing orders, interpretation of diagnostic studies, discussion with consultants, patient, and family members, as well as other required patient management activities. This time is exclusive of all separately billable procedures, and teaching time and separate from and in addition to any other critical care service time. Thank you for allowing us to participate in the care of this patient. (2) Palliative care encounter: (3) Acute respiratory failure with hypoxemia: (4) Pneumonia due to COVID-19 virus: Admission and Anticipated Discharge Date Admission Date: August 01, 2020 Subjective He is currently requiring 60 L of oxygen and 100% FiO2 saturating at 75%. due toPatient seen and examined today and notes worsening shortness of breath. He is very short of breath. I had a long discussion with the patient regarding his CODE STATUS and his wishes. I reminded him that just a couple days ago he told me that he wanted to be a DNR/DNI. He notes that he had ongoing discussions with his daughter and wants his daughter to make all of his decisions. I asked him what his wishes would be with regards to tracheostomy if his intubation was prolonged. He indicated that he would probably want a tracheostomy but will defer the decision to his daughter. At 1 point, he indicated to me that he wanted to be with his . Notably, his has . He then told me that he has seen the process of with his and would like to give a trial of mechanical ventilation at this time. He is coughing intermittently. He had some periodic hypotension overnight and required albumin boluses with improvement of blood pressure. Review of Systems Review of Systems: All systems reviewed & are unremarkable except as noted in HPI & below Physical Exam Constitutional: WD/WN, vitals as above + ill appearing; no acute distress Eyes: PERRL, conjunctivae normal, anicteric sclerae ENMT: external ear and nose normal, oropharynx normal Neck: trachea midline, no thyromegaly Respiratory: + respiratory distress, + labored breathing and + tachypneic Cardiovascular: RRR, no murmur, no edema Gastrointestinal (Abdomen): normal bowel sounds, soft, nontender, no hepatosplenomegaly Musculoskeletal: no cyanosis or clubbing, extremities motor strength 5/5 Skin: no rashes, warm and dry Neurologic: PERRL, EOMI, accommodation nl, no face palsy, no dysarthria Psychiatric: A+Ox3, euthymic affect Results & Data Results & Data ([facility]) Vital Signs (Past 12 Hours) Vital Signs Temp Pulse Pulse Pulse Resp BP Pulse Ox 08/15/20 10:53 117 H 20 90 08/15/20 09:02 86 28 H 90 08/15/20 08:00 178 H 08/15/20 07:21 98.1 F 60 20 127/73 86 L 08/15/20 06:52 148 H 26 H 115/70 83 L 08/15/20 05:40 162 H 83/43 L 84 L 08/15/20 03:48 99.3 F 87 22 122/74 88 L 08/15/20 02:18 88 28 H 87 L I reviewed the vital signs, labs and chest imaging PG Care Time/CCT Total # of Minutes Spent Total Time Spent with Patient: Total time spent is greater than 50% in coordination of care (as documented) at patient's floor/unit and/or counseling patient: Coding Level of Care Code 99212 Subseq Hosp Care Lvl 3 Diagnoses Acute respiratory failure with hypoxia J96.01 Palliative care encounter Z51.5 Acute respiratory failure with hypoxemia J96.01 Pneumonia due to COVID-19 virus U07.1; J12.89 Time Spent (min) 65
--- NOTE | 2020-08-15 11:32 | Billing Data ---
Date of Service August 15, 2020 Coding Level of Care Code Critical Care 1st 30-74 mins Time Spent (min) 65
[2020-08-15] MEDS: fentaNYL DRIP 1,250 MCG/250 ML BAG IV SCH ×2 (11:54→21:05)
[2020-08-15] MEDS ORDERED: VECURONIUM BROMIDE 10 MG VIAL IV STA (12:35)
--- NOTE | 2020-08-15 12:36 | Palliative Care Progress Note ---
Date of Service August 15, 2020 Assessment & Plan (1) Palliative care encounter: Jefry has shown gradual decline from a respiratory standpoint over the past few days. He has been proned almost daily and while he was able to tolerate being proned, he was becoming dusky and overall his body was becoming more and more tired. He was requiring maximum amounts of Hi-Flow oxygen. He has completed the 10-day course of Decadron, extended Remdesivir treatment completed and he received convalescent plasma early in his hospitalizations. My previous conversation with him was clear that he wanted a trial intubation, but did not want long-term ventilation/tracheostomy. He was intubated this morning and is sedated. I spent 26 minutes on the phone with Jefry's daughter, Shaye ([phone]) who was fully understanding of the current treatment plan and does have a baseline understanding of the complexity of his illness. She does understand that he has already been admitted for two weeks, significantly causing his overall outlook to be poor due to how deconditioned he already is. She has had lengthy conversation with her brothers and they are aware of his wishes and will 'take this one day at a time'. She is realistic that it may be unlikely that he improves to the point of a successful extubation. She has expressed that if his kidneys fail, that they would not want to pursue dialysis. I did specifically ask Shaye about CPR and she agreed to trialing one round of CPR/shocking. We will continue to follow regarding vasoactive drug requirements, etc and will assist family with decision making, should he require these in his future. We will continue to follow his progression on the ventilator and will continue to offer support to the family. (2) COVID-19: Community positive. Patient has received 6 days of steroids and 3 days of Remdesivir. He has received one dose of Convalescent plasma. (3) Hypoxia: Worsening. In 48 hours, he has gone from requiring 2LNC to now 30L Hi-Flow at 100%. OK for short term intubation, understanding risks and benefits. (4) Acute respiratory failure with hypoxemia: (5) Pneumonia: Admission and Anticipated Discharge Date Admission Date: August 01, 2020 Subjective Patient has significant epistaxis last p.m. necessitating stopping therapeutic dosing Lovenox and using Afrin. Patient has hemostasis. He previously suffers from polycythemia and did have normal hemoglobin to start with. Not appear to lose a significant amount of blood to necessitate checking hematology today. Patient has is persistently painful nose from high flow oxygen will use lidocaine jelly to try to reduce his symptoms. We will hold his Flonase which is causing some nasal burning. Overall he is not made much improvement nor any decline today Review of Systems Review of Systems: Unobtainable due to endotracheal tube Physical Exam Physical Exam: Deferred due to COVID-19. Discussed with the Hospitalist Results & Data ([facility]) Vital Signs (Past 12 Hours) Vital Signs Temp Pulse Pulse Pulse Resp BP Pulse Ox 08/15/20 10:53 117 H 20 90 08/15/20 09:02 86 28 H 90 08/15/20 08:00 178 H 08/15/20 07:21 36.7 C 60 20 127/73 86 L 08/15/20 06:52 148 H 26 H 115/70 83 L 08/15/20 05:40 162 H 83/43 L 84 L 08/15/20 03:48 37.4 C 87 22 122/74 88 L 08/15/20 02:18 88 28 H 87 L PG Care Time/CCT Total # of Minutes Spent Total Time Spent with Patient: Total time spent is greater than 50% in coordination of care (as documented) at patient's floor/unit and/or counseling patient: 35 Coding Level of Care Code 87839 Subseq Hosp Care Lvl 3 Diagnoses Palliative care encounter Z51.5 COVID-19 U07.1 Hypoxia R09.02 Acute respiratory failure with hypoxemia J96.01 Pneumonia J18.9 Time Spent (min) 35 Time Spent Midlevel Total time spent 35 minutes with > 50% of that time spent assessing the patient, discussing goals of care with family and collaborating with IDT
[2020-08-15] MEDS ORDERED: ARTIFICIAL TEARS OP OINT 3.5 GM TUBE OP STA (12:48)
--- NOTE | 2020-08-15 12:59 | Electrocardiogram Report ---
Test Reason : Blood Pressure : / mmHG Vent. Rate : 177 BPM Atrial Rate : 178 BPM P-R Int : 000 ms QRS Dur : 076 ms QT Int : 266 ms P-R-T Axes : 000 003 089 degrees QTc Int : 456 ms Atrial fibrillation with rapid ventricular response with premature ventricular or aberrantly conducte d complexes Minimal voltage criteria for LVH, may be normal variant Nonspecific ST and T wave abnormality Abnormal ECG When compared with ECG of 01-AUG-2020 14:39, Atrial fibrillation has replaced Sinus rhythm Vent. rate has increased BY 75 BPM T wave inversion now evident in Lateral leads Confirmed by Umberto Denis ([id number]) on 08/15/2020 12:59:31 PM Referred By: REFERRED SELF Confirmed By:Monty Denis
--- NOTE | 2020-08-15 13:00 | XRay Report ---
XR chest 1V portable CLINICAL HISTORY: Respiratory failure status post intubation COMPARISON STUDY: 08/15/2020 FINDINGS: There are extensive bilateral pulmonary airspace opacities. There is been interval placemen t of nasogastric tube which is positioned within the stomach. There is been interval placement of end otracheal tube, the tip of which projects 5.7 cm above the ashwin. There is a vertically oriented cat heter projected over the upper right chest. This potentially represents a right internal jugular cent ral venous catheter although it could represent a catheter/wire extraneous to the patient. No pneumot horax is identified.[ IMPRESSION: 1. Extensive bilateral pulmonary airspace opacities 2. Nasogastric tube in the stomach 3. Interval placement of an endotracheal tube 5.7 cm above the ashwin ACT 112: Negative or not required by law. Electronically signed by: James Patricia M.D. 08/15/2020 12:58 PM
[2020-08-15] MEDS: NOREPINEPHRINE/D5W 8 MG/508 ML BAG IV SCH (13:20)
[2020-08-15] MEDS ORDERED: HYDROCORTISONE SOD 100 MG in SYRINGE 0 ML IV STA (16:08)
--- NOTE | 2020-08-15 16:08 | Procedure Note ---
Procedure Note Date of Service August 15, 2020 Note INTUBATION PROCEDURE NOTE: Dr. Curtis Mondragon A time-out was completed verifying correct patient, procedure, site, positioning. Patient was evaluated and required intubation for acute hypoxemic respiratory failure. Sedative agent used: 20 mg of etomidate Paralysis agent used: 50 mg of rocuronium The patient gave verbal consent for the intubation. No paper consent was obtained due to the COVID-19 pandemic. Number of attempts: 1 Grade view: Not applicable as this was a video laryngoscope The patient was prepared in the appropriate fashion. Sedation was achieved utilizing 20 mg of etomidate and 50 mg of rocuronium. The patient was easily ventilated using [id number] to achieve adequate oxygenation. A 8 Welsh endotracheal tube was placed under video laryngoscope guidance to 23 cm at the lip. The stylette was removed and balloon was inflated with 10mL of air. Appropriate Colorimetric change was appreciated. Bilateral breath sounds were heard without air sounds in the abdomen. Post Intubation Chest X-ray ordered Patient tolerated the procedure well and there were no immediate complications. Coding CPT Codes Resuscitation - Resuscitation: 05794 Endotracheal Intubation, emergency ([id number]) [facility] [place]) Resuscitation Resuscitation: 50583 Endotracheal Intubation, emergency
--- NOTE | 2020-08-15 16:12 | Procedure Note ---
Procedure Note Date of Service August 15, 2020 Note Right INTERNAL JUGULAR CENTRAL LINE PROCEDURE NOTE: Procedure: Internal Jugular Central Line Placement Indication: Central Drug Administration, Poor Venous Access, Multiple Lab Draws Necessary, etc. Verbal consent was obtained from the patient. No paper consent was obtained due to the COVID-19 pandemic. A time-out was completed verifying correct patient, procedure, site, positioning, and implants(s) or special equipment if applicable. Patients right neck was cleansed and draped in the typical sterile fashion using Chloraprep. The Internal Jugular Vein and Carotid Artery were identified using ultrasound. The superficial tissue was anesthetized using 8 mL of 1% lidocaine without epinephrine under direct visualization with the ultrasound. After adequate anesthetization was achieved, the Internal Jugular vein was cannulated under direct ultrasound guidance using an introducer needle on a syringe. Good venous blood return was maintained prior to removal of syringe from introducer needle. Using Seldinger Technique, a guide wire was advanced through the introducer needle without resistance. The introducer needle was removed and ultrasound images were obtained of the guide wire within the Internal Jugular Vein and fercho ed to the patients medical record. A small incision was made in penetrating fashion at the guide wire insertion site utilizing an 11 blade scalpel. The dilator was advanced to the vessel without resistance. The dilator was exchanged for the triple lumen catheter which was advanced into the vessel without resistance. The guide wire was removed intact from the catheter without issue. Claves were placed on each catheter tip with confirmation of good blood flow from each lumen. Each port was easily flushed with sterile saline. The catheter was placed at 18 cm [address] in place. BioPatch was applied to the catheter and a sterile Tegaderm dressing was applied over the catheter with careful attention to sterility. Patient tolerated procedure well. No immediate complications were met. Post procedure x-ray was completed, placement was appropriate and no pneumothorax was noted. Images obtained are saved for permanent record Procedural Ultrasound Guidance used Images obtained are saved for permanent record. Coding CPT Codes Tubes, Drains, and Vasc Access - Tubes, Drains, and Vasc Access: [id number] Place catheter in vein superior or inferior vena cava ([id number]) Tubes, Drains, and Vasc Access - Tubes, Drains, and Vasc Access: [id number] Ultrasonic Guide For Needle Placement ([id number]) [facility] [place]arg[place]) Tubes, Drains, and Vasc Access Procedure 1: Tubes, Drains, and Vasc Access: [id number] Place catheter in vein superior or inferior vena cava Procedure 2: Tubes, Drains, and Vasc Access: [id number] Ultrasonic Guide For Needle Placement
[2020-08-15] MEDS ORDERED: NORMOSOL-R 500 ML IV ONE (16:16)
[2020-08-15 17:13] LABS: Albumin Globulin Ratio 0.7 (0.9-2); Albumin Level 2.4 gm/dl (3.4-5.0); BUN Creatinine Ratio 22.2 (10-20); Calcium 7.7 mg/dl (8.5-10.1); Creatinine Clr Calc Pharmacy 52.5 ml/min; Est GFR (African American) 57.2; Est GFR (Non-African American) 49.3; Globulin 3.5 gm/dl (2.5-4.0); Potassium 4.6 mmol/L (3.5-5.1); Total Protein 5.9 gm/dl (6.4-8.2)
[2020-08-15 17:16] LABS: ALC (manual) 0.84 K/uL (1.2-3.4); ANC (manual) 27.95 K/uL (1.4-6.5); Echinocytes 1+; Hematocrit (blood only) 40.6 % (42-52); Hemoglobin 13.6 g/dL (14.0-18.0); Lymphocytes # (manual) 0.84 K/uL (1.2-3.4); Lymphocytes % (manual) 2.6 %; Mean Corpuscular Hemoglobin 35.2 pg (25-34); Mean Corpuscular Hgb Conc 33.5 g/dL (32-36); Mean Corpuscular Volume 105.2 fL (80-100); Mean Platelet Volume 11.3 fL (7.4-10.4); Monocytes # (manual) 3.34 K/uL (0.11-0.59); Monocytes % (manual) 10.4 %; Neutrophils # (manual) 27.95 K/uL (1.4-6.5); Platelet Count 474 K/uL (130-400); RDW Coefficient of Variation 15.2 % (11.5-14.5); RDW Standard Deviation 57.7 fL (36.4-46.3); Red Blood Count 3.86 M/uL (4.7-6.1); White Blood Count 32.13 K/uL (4.8-10.8)
[2020-08-15] MEDS ORDERED: VANCOMYCIN CONSULT ACTIVE PRN (17:21)
--- NOTE | 2020-08-15 17:25 | Communication Note ---
Date of Service: August 15, 2020 Due to the patient's worsening hypoxemic respiratory failure, we elected to prone the patient. I placed a right arterial radial line in place prior to the proning. He continues to be profoundly hypotensive and hypoxemic. He is now requiring low doses of Levophed. I increased his PEEP to 14. We are continuing with lung protective ventilation strategies. We are going to start him on a Nimbex drip. We are giving him a one-time dose of hydrocortisone 100 mg given that he had hypotension after the intubation. Etomidate can cause relative adrenal insufficiency. I also gave her 500 cc bolus of Normosol. We are starting broad-spectrum antibiotics with vancomycin and cefepime. We are going to obtain blood cultures. Lactate was within normal limits. CBC suggests a substantially elevated white count with a WBC count of over 30,000. His prognosis is very poor at this time. CRITICAL CARE TIME - I have personally spent 48 minutes of critical care time in the direct management of this patient. This is a life/limb threatening event. This includes time spent evaluating patient, direct bedside care, chart review, placing orders, interpretation of diagnostic studies, discussion with consultants, patient, and family members, as well as other required patient management activities. This time is exclusive of all separately billable procedures, and teaching time and separate from and in addition to any other critical care service time. Coding Level of Care Code Critical Care avelina gracia'ruth 30 min Time Spent (min) 48
--- NOTE | 2020-08-15 17:30 | Procedure Note ---
Procedure Note Date of Service August 15, 2020 Note ARTERIAL LINE PROCEDURE NOTE: Procedure: Arterial Line Placement Indication: Monitoring on Pressors Anesthesia: Verbal consent was obtained prior to the intubation. No paper consent was obtained due to the COVID-19 pandemic. A time-out was completed verifying correct patient, procedure, site, positioning, and implant(s) or special equipment if applicable. Patients right wrist was prepped and draped in the usual sterile fashion. I palpated the radial artery to locate the placement of the arterial catheter. A 20g Arrow arterial line was introduced into the right radial artery. Catheter was threaded, and the needle was removed with appropriate blood return. Good waveform was observed. The patient tolerated the procedure well. Blood Loss: Minimal Complications: None Coding CPT Codes Tubes, Drains, and Vasc Access - Tubes, Drains, and Vasc Access: [id number] Place Catheter In Artery ([id number]) [facility] [place] Codes (Charges) Tubes, Drains, and Vasc Access Procedure 3: Tubes, Drains, and Vasc Access: [id number] Place Catheter In Artery
[2020-08-15] MEDS ORDERED: Nursing to Pharmacy Communication SCH (17:45)
[2020-08-15] MEDS ORDERED: VANCOMYCIN HCL 2,250 MG in SODIUM CHLORIDE 0.9% 500 ML IV ONE (18:00)
[2020-08-15] MEDS: CISATRACURIUM BESYLATE 40 MG in 0.9 % SODIUM CHLORIDE 80 ML IV SCH ×2 (18:10→23:21)
[2020-08-15] MEDS: VECURONIUM BROMIDE 10 MG in 0.9 % SODIUM CHLORIDE 90 ML IV SCH ×2 (18:20→18:22)
[2020-08-15] MEDS: CEFEPIME 2,000 MG in SYRINGE 0 ML IV SCH (18:25)
--- NOTE | 2020-08-15 18:25 | Hospitalist Progress Note ---
Date of Service August 15, 2020 Assessment & Plan (1) Acute respiratory failure with hypoxia: Pt continues to have high oxygen need, HFNC 60L and 100% FiO2, even with addition of oxymask on top of it high 80's when sitting up but he has only mild symptoms of dyspnea did not tolerate Bipap, did have epistaxis from Hi flow oxygen and therapeutic lovenox, did hold lovenox for one day now will return to high dose prophylactic dosing CXR 08/13 with worsening b/l pneumonia / developing ARDS, procalcitonin remains negative, bnp also negative 2nd to COVID-19 pneumonia. On 08/07 he was placed on empiric anticoagulation for that purpose, did not have objective improvement to suggest worsening was from clot burden pulmonary evaluation 08/13 with continued supportive care IV decadron 6mg daily, will continue for now as he is still requiring HFNC s/p plasma on 08/02/20. Remdesivir - completed 10 d course Completed 7-day course of rocephin - Completed 5-day course of zithromax - after decompensaiton and progression of cxr changes did have increased leukcytosis and mild procal will be placed on emperic vancomycin and cefepime pulmonary med will ventilate prone, is requiring doses of pressors and fluid bolus Formal palliative care consult requested to refine goals of care, wishes for intubation/ventilation, etc. Patient ok with intubation/mech ventilation but would not want such for greater than 3 days. will continue to keep family engaged markos Lind [phone] daughter, spokes person (2) Pneumonia due to COVID-19 virus: see "resp failure" above. decline requiring intubation 08/15/20 therapeutic anticoagulation with lovenox begun on 08/07/20-> epistaxis, stopped 08/13, return to 40 mg sc bid 08/14 will extend Decadron since he is still on high flow extended remdesivir course to 10 days, LD was 08/13/20 (3) Polycythemia vera: Continue hydroxyurea. H/H and platelets are acceptable. PCV increases risk of VTE - full anticoagulation started 08/07 given worsening hypoxia. (4) Hypothyroidism: Continue levothyroxine 125 mcg daily last TSH was 02/2020 and was high (5) Hypertension: Blood pressures have been lower holding antihypertensive medicaitons and now requring pressors (6) CKD (chronic kidney disease): stage 3, now mild worseing with taylor CrCl is 40s/50s (7) Melena: concern for such earlier this stay. however, stool was heme negative. H/H stable/acceptable. cont PPI bid (8) BPH (benign prostatic hyperplasia): cont finasteride (9) DVT prophylaxis: lovenox 40mg BID prognosis remains guarded updated both son and daughter 12/,2,3 will limit non family call ins per family request Admission and Anticipated Discharge Date Admission Date: August 01, 2020 Subjective As called by nursing in hair boiler operator hours approximately 7:00 regarding this patient's persistent hypoxia despite high flow oxygen and oxygen mask at 15 L. Patient previously has been intolerant of BiPAP and this was tried on different occasions and he continues to refuse it. He had previously also discussions about extraordinary means of sustaining life at this point time is agreeable to have a short stay on the ventilator to see if he can improve his oxygenation as his oxygen saturations were in the mid 80s. Patient appears ill and nielson he is short of breath. I phoned his daughter Markos at the updated they were likely proceeding towards ventilation and she was agreeable as well as I spoke to the patient and he was also agreeable I personally spoke to Dr. Urias the production support manager on-call and he is agreeable to take the patient to the intensive care unit perform intubation and try to prone ventilate the patient in an attempt to sustain his oxygenation Review of Systems Review of Systems: prior to intubation severe distress, discomfort and anxiety no chest pain, pressure or palpitations Persistent shortness of breath and dyspnea no abdominal pain, nausea or vomiting, diarrhea or constipation no dysuria, hematuria or frequency no focal joint pain or swelling no back pain, CVA tenderness or radicular pain no bruising, bleeding or rashes objectively appears to be depressed Physical Exam Physical Exam: The patient appeared depressed and significantly ill Vital signs as documented. low blood pressure and persistent significantly hypoxia Head exam is normocephalic atraumatic no scleral icterus Nares showed no active signs of bleeding at this time Neck is without JVD, thyromegaly, or carotid bruits. Lungs are continue with bilateral coarse rales worse on the left Cardiac exam, Rhythm is regular.. No murmurs, rubs or gallops. Abdominal exam reveals normal bowel sounds, soft Extremities are trace edematous Neurologic exam is alert and oriented, he is agreeable to intubation understands his surivival is not with high success Psychologically is with concerns for anxiety or depression. Results & Data Results & Data ([facility]) Vital Signs (Past 12 Hours) Vital Signs Temp Pulse Pulse Resp BP BP Pulse Ox 08/15/20 15:09 92 H 26 H 91 08/15/20 13:16 105 H 80/53 L 84 L 08/15/20 13:01 109 H 96/57 L 84 L 08/15/20 13:00 110 H 22 85 L 08/15/20 12:46 109 H 118/59 L 84 L 08/15/20 12:31 108 H 118/63 84 L 08/15/20 12:30 107 H 84 L 08/15/20 12:16 111 H 124/65 84 L 08/15/20 12:15 109 H 84 L 08/15/20 12:01 121 H 143/69 H 84 L 08/15/20 12:00 113 H 82 L 08/15/20 11:46 115 H 134/71 86 L 08/15/20 11:45 107 H 85 L 08/15/20 10:53 117 H 20 90 08/15/20 10:00 154 H 08/15/20 09:02 86 28 H 90 08/15/20 08:00 178 H 08/15/20 07:21 98.1 F 60 20 127/73 86 L 08/15/20 06:52 148 H 26 H 115/70 83 L PG Care Time/CCT Total # of Minutes Spent Total Time Spent with Patient: Total time spent is greater than 50% in coordination of care (as documented) at patient's floor/unit and/or counseling patient: Coding Level of Care Code 30983 Subseq Hosp Care Lvl 3 Diagnoses Acute respiratory failure with hypoxia J96.01 Pneumonia due to COVID-19 virus U07.1; J12.89 Polycythemia vera D45 Hypothyroidism E03.9 Hypertension I10 CKD (chronic kidney disease) N18.9 Melena K92.1 BPH (benign prostatic hyperplasia) N40.0 DVT prophylaxis Z29.9
--- NOTE | 2020-08-15 19:27 | Pharmacy Report ---
Pharmacy Abx Dose Short Note - Date of Service August 15, 2020 - Assessment & Plan Assessment 74 year old M receiving Cefepime/vancomycin for treatment of worsening pulmonary function in setting of COVID-19 Day # 1 of antimicrobial therapy. Plan Vancomycin Patient meets criteria for vancomycin AUC dosing nomogram AUC/ERIKA is the preferred PK/PD target for vancomycin * Target AUC/ERIKA = 400-600 * AUC guided dosing is effective and associated with decreased risk of nephrotoxicity Pharmacy will continue to follow and will adjust dose/frequency as necessary. Thank you.
[2020-08-15] MEDS ORDERED: METOPROLOL TARTRATE 25 MG TAB PO SCH (21:00)
[2020-08-16] MEDS: propofoL 1,000 MG/100 ML VIAL IV SCH ×6 (04:36→19:42)
[2020-08-16 05:18] LABS: iSTAT Art Bld Gas pCO2 Correct 58 mmHg (35-46); iSTAT Art Bld Gas pH Corrected 7.242 (7.35-7.45); iSTAT Arterial Blood Gas HCO3 25 meg/L (19-24); iSTAT Arterial Blood Gas pCO2 62 mmHg (35-46); iSTAT Arterial Blood Gas pH 7.22 (7.35-7.45); iSTAT Arterial Blood Gas pO2 84 mmHg (80-95); iSTAT Arterial Blood Gas pO2 C 74; iSTAT Carbon Dioxide 27 mmol/L (24-31); iSTAT FiO2 60 %; iSTAT Hematocrit 44 % (42-52); iSTAT Potassium 4.4 mmol/L (3.3-5.0); iSTAT Site Art Line; iSTAT Sodium 141 mmol/L (135-144)
[2020-08-16] MEDS: CISATRACURIUM BESYLATE 40 MG in 0.9 % SODIUM CHLORIDE 80 ML IV SCH ×3 (05:54→21:00)
[2020-08-16] MEDS: CEFEPIME 2,000 MG in SYRINGE 0 ML IV SCH ×2 (05:56→19:42)
[2020-08-16] MEDS: LEVOTHYROXINE SODIUM 125 MCG TABLET PO SCH (05:57)
[2020-08-16 07:31] LABS: BUN Creatinine Ratio 27.1 (10-20); Creatinine Clr Calc Pharmacy 74.3 ml/min; Est GFR (Non-African American) 75.9; Magnesium 2.4 mg/dl (1.8-2.4); Phosphorus 3.7 mg/dl (2.5-4.9); Potassium 4.3 mmol/L (3.5-5.1)
[2020-08-16 07:59] LABS: Mean Corpuscular Hgb Conc 33.1 g/dL (32-36); Mean Platelet Volume 11.2 fL (7.4-10.4); Platelet Count 369 K/uL (130-400)
[2020-08-16] MEDS ORDERED: VANCOMYCIN HCL 1,000 MG in SODIUM CHLORIDE 0.9% 250 ML IV SCH (08:00)
[2020-08-16] MEDS: DEXAMETHASONE SOD PHOSPHATE 6 MG in SYRINGE 0 ML IV SCH (08:07)
[2020-08-16] MEDS: fentaNYL DRIP 1,250 MCG/250 ML BAG IV SCH ×2 (08:08→19:43)
[2020-08-16] MEDS: PANTOprazole 40 MG in SYRINGE 0 ML IV SCH (08:09)
[2020-08-16 08:30] LABS: Hematocrit (blood only) 41.7 % (42-52); Hemoglobin 13.8 g/dL (14.0-18.0); Mean Corpuscular Hemoglobin 35.3 pg (25-34); Mean Corpuscular Volume 106.6 fL (80-100); Monocytes # (manual) 0.48 K/uL (0.11-0.59); Monocytes % (manual) 1.7 %; Myelocytes # (manual) 0.25 K/uL (0-0); Myelocytes % (manual) 0.9 %; Neutrophils % (manual) 97.4 %; RBC Morphology Unremarkable; RDW Coefficient of Variation 15.3 % (11.5-14.5); RDW Standard Deviation 59.5 fL (36.4-46.3); Red Blood Count 3.91 M/uL (4.7-6.1); White Blood Count 28.03 K/uL (4.8-10.8)
[2020-08-16] MEDS ORDERED: dexAMETHasone 1 MG TAB PO SCH (09:00)
[2020-08-16] MEDS: ENOXAPARIN INJ 40 MG/0.4 ML SYR SQ SCH (10:09)
[2020-08-16] MEDS: NOREPINEPHRINE/D5W 8 MG/508 ML BAG IV SCH (10:10)
--- NOTE | 2020-08-16 10:10 | Critical Care Progress Note ---
Date of Service August 16, 2020 Assessment & Plan (1) Acute respiratory failure with hypoxia: Neurologic: Analgesics and sedation: Propofol, fentanyl and Nimbex drip. We will try to decrease the fentanyl when he is supinated to 100 mcg an hour. We will consider discontinuing Nimbex drip as he is supinated. Delirium precautions Pulmonary: We will taper down the Decadron. We will start 3 mg tomorrow for 2 days, followed by 2 mg for 2 days and then 1 mg for 2 days. Continue proning for 16 hours a day. Continue lung protective ventilation strategy. We are weaning down his FiO2 and PEEP as able. Cardiovascular: Continue low-dose Levophed. Some of the hypotension is likely related to sedation. Gastrointestinal: Continue Protonix daily. We will start tube feeds when he is supinated. We will have to keep an eye on his triglycerides given that he is on propofol. Renal: His creatinine is trending upward slightly. We will continue to monitor. Replace electrolytes per protocol. Infectious disease: Procalcitonin is within normal limits. Sputum cultures pending. We will leave cefepime on for another 24 hours and reassess. We discontinued vancomycin as his MRSA screen was negative. Hematologic: Continue hydroxyurea given his polycythemia vera. We will continue 40 mg Lovenox daily. He did have hematuria yesterday from a traumatic Mcbride. Endocrine: Insulin protocol per ICU. Lines and tubes: Peripheral IVs, right IJ and right radial line in place. VTE prophylaxis: 40 mg daily. CODE STATUS: Full code. I discussed the case with the palliative care attending. Family at bedside: None available due to the COVID-19 pandemic Disposition: His prognosis is extremely poor. He is to remain in the ICU. I have personally spent 52 minutes of critical care time in the direct management of this patient. This is a life/limb threatening event. This includes time spent evaluating patient, direct bedside care, chart review, placing orders, interpretation of diagnostic studies, discussion with consultants, patient, and family members, as well as other required patient management activities. This time is exclusive of all separately billable procedures, and teaching time and separate from and in addition to any other critical care service time. Thank you for allowing us to participate in the care of this patient. (2) Palliative care encounter: (3) Acute respiratory failure with hypoxemia: (4) Pneumonia due to COVID-19 virus: (5) Shock: Admission and Anticipated Discharge Date Admission Date: August 01, 2020 Subjective Patient is currently intubated, sedated, on paralytic therapy and proned. Unable to get a review of systems. No significant issues overnight. He is currently requiring 60% FiO2 and a PEEP of 12. Saturations in the mid 90s. Review of Systems Review of Systems: Unobtainable due to endotracheal tube and Unobtainable due to reduced consciousness Physical Exam Constitutional: Patient is currently prone. Does not appear to be in significant discomfort at this time. He is heavily sedated and paralyzed. Eyes: Unable to examine due to proning ENMT: Endotracheal tube is in place at 25 cm at the lip. Neck: normal visual inspection Respiratory: normal respiratory effort, lungs clear to auscultation Cardiovascular: RRR, no murmur, no edema Gastrointestinal (Abdomen): Unable to examine due to proning Musculoskeletal: no cyanosis or clubbing, extremities motor strength 5/5 Skin: no rashes, warm and dry Neurologic: Unable to assess due to paralytic therapy and proning Psychiatric: A+Ox3, euthymic affect Results & Data Results & Data ([facility]) Vital Signs (Past 12 Hours) Vital Signs Pulse Resp Pulse Ox 08/16/20 08:30 64 26 H 94 08/16/20 04:58 75 22 93 08/16/20 01:51 79 22 96 08/15/20 22:44 92 H 22 94 I reviewed the vital signs, labs and imaging Coding Level of Care Code Critical Care 1st 30-74 mins Diagnoses Acute respiratory failure with hypoxia J96.01 Palliative care encounter Z51.5 Acute respiratory failure with hypoxemia J96.01 Pneumonia due to COVID-19 virus U07.1; J12.89 Shock R57.9 Time Spent (min) 52
[2020-08-16] MEDS ORDERED: ARTIFICIAL TEARS OP OINT 3.5 GM TUBE OP ONE (11:19)
[2020-08-16] MEDS ORDERED: PEPTAMEN INTENSE VHP 1.0 CAL 1,000 ML BAG OG SCH (11:30)
[2020-08-16 11:40] LABS: iSTAT Hemoglobin 14.6 g/dl (14.0-18.0); iSTAT Potassium 4.4 mmol/L (3.3-5.0); iSTAT Sodium 140 mmol/L (135-144)
[2020-08-16 11:41] LABS: iSTAT Art Bld Gas pCO2 Correct 48 mmHg (35-46); iSTAT Arterial Blood Gas HCO3 22 meg/L (19-24); iSTAT Arterial Blood Gas pCO2 49 mmHg (35-46); iSTAT Arterial Blood Gas pH 7.26 (7.35-7.45); iSTAT Arterial Blood Gas pO2 128 mmHg (80-95); iSTAT Arterial Blood Gas pO2 C 124; iSTAT Carbon Dioxide 24 mmol/L (24-31); iSTAT Hematocrit 43 % (42-52)
[2020-08-16 11:42] LABS: Patient Temperature 36.5; iSTAT Allen Test Not Performed; iSTAT FiO2 100 %; iSTAT Sample Type Arterial; iSTAT Site Art Line
--- NOTE | 2020-08-16 11:55 | Palliative Care Progress Note ---
Date of Service August 16, 2020 Assessment & Plan (1) Palliative care encounter: Reviewed status with Dr. Mondragon. I spoke with is daughter, Shaye, on the phone. Today is Jefry's birthday. She is tearful at times but reports that she's doing ok. Reviewed current status and answered her questions. He has previously said that if he needed to be on a ventilator, he would want that for short term and specified three days. Shaye is understands that three days is not a sufficient amount of time to determine his prognosis. She is certain that he was thinking about this from a short term perspective in the context of his having required vent support for nine weeks when he had to make decision to withdraw care. She is agreeable to continue vent support in the short term. We will continue to touch base and discuss his prognosis moving forward to help determine further plan of care. (2) Pneumonia due to COVID-19 virus: Admission and Anticipated Discharge Date Admission Date: August 01, 2020 Subjective Remains prone, on vent support. Appears comfortable with sedation. Review of Systems Review of Systems: Unobtainable due to cognitive status Palliative Performance Score 20% Physical Exam Constitutional: prone position, no distress ENMT: ET tube Neurologic: + obtunded Genitourinary: Mcbride Catheter Results & Data ([place]) Vital Signs (Past 12 Hours) Vital Signs Pulse Resp Pulse Ox 08/16/20 08:30 64 26 H 94 08/16/20 04:58 75 22 93 08/16/20 01:51 79 22 96 PG Care Time/CCT Total # of Minutes Spent Total Time Spent with Patient: Total time spent is greater than 50% in coordi nation of care (as documented) at patient's floor/unit and/or counseling patient: Total time 28 minutes with more than 50% of time spent on family support and goals of care. Coding Level of Care Code 43507 Subseq Hosp Care Lvl 2 Diagnoses Palliative care encounter Z51.5 Pneumonia due to COVID-19 virus U07.1; J12.89 Time Spent (min) 28
--- NOTE | 2020-08-16 11:58 | XRay Report ---
XR chest 1V portable HISTORY: 75 years-old Male pneumonia/ resp failure acute respiratory failure with pneumonia COMPARISON: Chest radiograph 08/15/2020 TECHNIQUE: Direct AP view of the chest FINDINGS: Endotracheal tube overlies the midline, 5.1 cm superior to the ashwin. Right IJ central venous cathet er distal tip terminates in the expected location of the proximal SVC. There is no pneumothorax or la rge pleural effusion. Mild cardiomegaly. Extensive bilateral mixed interstitial and alveolar opacitie s are redemonstrated with mildly improved aeration of the lungs from comparison. Enteric tube courses below the diaphragm, distal tip appearing to terminate in the expected location of the mid gastric b martínez. Degenerative changes of the shoulders and spine. IMPRESSION: 1. Lines and tubes as above. 2. Mildly improved aeration of the lungs with persistent extensive mixed interstitial and alveolar op acities. ACT 112: Negative or not required by law. The above report was generated using voice recognition software. It may contain grammatical, syntax o r spelling errors. Electronically signed by: Silas Grayson M.D. 08/16/2020 11:57 AM
[2020-08-16] MEDS ORDERED: ASPIRIN 81 MG CHEW GT ONE (12:00)
[2020-08-16] MEDS: ASPIRIN 81 MG ECTAB PO SCH (12:02)
[2020-08-16 14:52] LABS: Basophils # (auto) 0.01 K/uL (0-0.2); Basophils % (auto) 0.1 %; Hematocrit (blood only) 43.1 % (42-52); Hemoglobin 14.5 g/dL (14.0-18.0); Immature Granulocytes # (auto) 0.09 K/uL (0.00-0.02); Immature Granulocytes % (auto) 0.5 %; Lymphocytes % (auto) 5.2 %; Mean Corpuscular Volume 106.9 fL (80-100); Mean Platelet Volume 11.2 fL (7.4-10.4); Monocytes # (auto) 0.56 K/uL (0.11-0.59); Monocytes % (auto) 2.9 %; Neutrophils # (auto) 17.65 K/uL (1.4-6.5); Neutrophils % (auto) 91.3 %; Platelet Count 337 K/uL (130-400); RDW Coefficient of Variation 15.3 % (11.5-14.5); RDW Standard Deviation 59.9 fL (36.4-46.3); Red Blood Count 4.03 M/uL (4.7-6.1); White Blood Count 19.31 K/uL (4.8-10.8)
[2020-08-16 14:53] LABS: Mean Corpuscular Hgb Conc 33.6 g/dL (32-36)
[2020-08-16 15:02] LABS: iSTAT Arterial Blood Gas HCO3 26 meg/L (19-24); iSTAT Arterial Blood Gas pCO2 57 mmHg (35-46); iSTAT Arterial Blood Gas pH 7.27 (7.35-7.45); iSTAT Arterial Blood Gas pO2 70 mmHg (80-95); iSTAT Carbon Dioxide 28 mmol/L (24-31); iSTAT FiO2 50 %; iSTAT Site Art Line
[2020-08-16 15:13] LABS: Appearance Urine Turbid (Clear); Bacteria Urine Automated Negative (Negative); Bilirubin Urine Negative (Negative); Blood Urine 3+ (Negative); Color Urine Dark Yellow; Epithelial Cell Urine Auto >30 /lpf (0-5); Glucose Urine UA Negative (Negative); Ketones Urine Trace (Negative); Leukocyte Esterase Urine 1+ (Negative); Nitrite Urine Negative (Negative); Protein Urine 2+ (Negative); Specific Gravity Urine 1.028 (1.000-1.030); Urobilinogen Urine Negative (Negative); WBC Urine Automated >30 /hpf (0-5)
[2020-08-16 15:18] LABS: BUN Creatinine Ratio 25.9 (10-20); Calcium 8.5 mg/dl (8.5-10.1); Creatinine Clr Calc Pharmacy 74.3 ml/min; Est GFR (Non-African American) 75.9; Potassium 4.7 mmol/L (3.5-5.1)
[2020-08-16 16:04] LABS: Granular Casts Urine 20-30 /lpf (0); RBC Urine Automated >30 /hpf (0-4)
--- NOTE | 2020-08-16 16:23 | Hospitalist Progress Note ---
Date of Service August 16, 2020 Assessment & Plan (1) Acute respiratory failure with hypoxia: Pt continues to have high oxygen need, HFNC 60L and 100% FiO2, even with addition of oxymask on top of it high 80's when sitting up but he has only mild symptoms of dyspnea did not tolerate Bipap, did have epistaxis from Hi flow oxygen and therapeutic lovenox, did hold lovenox for one day now will return to high dose prophylactic dosing CXR 08/13 with worsening b/l pneumonia / developing ARDS, procalcitonin remains negative, bnp also negative 2nd to COVID-19 pneumonia. On 08/07 he was placed on empiric anticoagulation for that purpose, did not have objective improvement to suggest worsening was from clot burden pulmonary evaluation 08/13 with continued supportive care IV decadron 6mg daily, will continue for now as he is still requiring HFNC s/p plasma on 08/02/20. Remdesivir - completed 10 d course Completed 7-day course of rocephin - Completed 5-day course of zithromax - after decompensaiton and progression of cxr changes did have increased leukcytosis and mild procal will be placed on emperic vancomycin and cefepime pulmonary med will ventilate prone, is requiring doses of pressors and fluid bolus Formal palliative care consult requested to refine goals of care, wishes for intubation/ventilation, etc. Patient ok with intubation/mech ventilation but would not want such for greater than 3 days. will continue to keep family engaged markos Lind [phone] daughter, spokes person (2) Pneumonia due to COVID-19 virus: see "resp failure" above. decline requiring intubation 08/15/20 therapeutic anticoagulation with lovenox begun on 08/07/20-> epistaxis, stopped 08/13, return to 40 mg sc bid 08/14 will extend Decadron since he is still on high flow extended remdesivir course to 10 days, LD was 08/13/20 (3) Polycythemia vera: Continue hydroxyurea. H/H and platelets are acceptable. PCV increases risk of VTE - full anticoagulation started 08/07 given worsening hypoxia. (4) Hypothyroidism: Continue levothyroxine 125 mcg daily last TSH was 02/2020 and was high (5) Hypertension: Blood pressures have been lower holding antihypertensive medicaitons and now requring pressors (6) CKD (chronic kidney disease): stage 3, now mild worseing with taylor CrCl is 40s/50s (7) Melena: concern for such earlier this stay. however, stool was heme negative. H/H stable/acceptable. cont PPI bid (8) BPH (benign prostatic hyperplasia): cont finasteride (9) DVT prophylaxis: lovenox 40mg BID prognosis remains guarded updated both son and daughter /,2,3 will limit non family call ins per family request Admission and Anticipated Discharge Date Admission Date: August 01, 2020 Subjective Remains prone, on vent support. Appears comfortable with sedation. Review of Systems Review of Systems: Unobtainable due to endotracheal tube Physical Exam Physical Exam: pt is mortally ill , on ventilatory support, poor ventilation Results & Data Results & Data ([facility] [place]) Vital Signs (Past 12 Hours) Vital Signs Temp Pulse Resp BP Pulse Ox 08/16/20 16:06 83 26 H 91 08/16/20 15:11 98.6 F 89 110/61 90 08/16/20 14:36 98.4 F 95 H 108/61 87 L 08/16/20 14:11 98.2 F 99 H 126/60 89 L 08/16/20 13:41 98.1 F 86 128/64 90 08/16/20 13:11 97.7 F 85 125/62 90 08/16/20 12:41 97.5 F L 81 121/64 90 08/16/20 12:11 97.3 F L 64 115/57 L 89 L 08/16/20 12:04 66 26 H 90 08/16/20 11:30 97.2 F L 63 140/62 90 08/16/20 10:30 97.0 F L 63 109/59 L 92 08/16/20 09:30 96.8 F L 63 99/56 L 92 08/16/20 08:30 96.4 F L 59 L 26 H 121/62 96 08/16/20 08:00 74 08/16/20 07:30 96.1 F L 64 116/54 L 95 08/16/20 06:30 95.9 F L 73 115/54 L 94 08/16/20 05:30 95.5 F L 73 118/56 L 93 08/16/20 04:58 75 22 93 08/16/20 04:30 95.2 F L 72 114/67 94 PG Care Time/CCT Total # of Minutes Spent Total Time Spent with Patient: Total time spent is greater than 50% in coordination of care (as documented) at patient's floor/unit and/or counseling patient: Coding Level of Care Code 57634 Subseq Hosp Care Lvl 2 Diagnoses Acute respiratory failure with hypoxia J96.01 Pneumonia due to COVID-19 virus U07.1; J12.89 Polycythemia vera D45 Hypothyroidism E03.9 Hypertension I10 CKD (chronic kidney disease) N18.9 Melena K92.1 BPH (benign prostatic hyperplasia) N40.0 DVT prophylaxis Z29.9
[2020-08-17] MEDS: propofoL 1,000 MG/100 ML VIAL IV SCH ×4 (01:11→20:24)
[2020-08-17 04:22] LABS: Hematocrit (blood only) 42.1 % (42-52); Mean Corpuscular Hemoglobin 35.8 pg (25-34); Mean Corpuscular Hgb Conc 33.3 g/dL (32-36); Mean Corpuscular Volume 107.7 fL (80-100); Platelet Count 334 K/uL (130-400); RDW Coefficient of Variation 15.6 % (11.5-14.5); Red Blood Count 3.91 M/uL (4.7-6.1); White Blood Count 17.77 K/uL (4.8-10.8)
[2020-08-17 04:37] LABS: BUN Creatinine Ratio 25.7 (10-20); Calcium 8.5 mg/dl (8.5-10.1); Creatinine Clr Calc Pharmacy 69.9 ml/min; Est GFR (African American) 81.8; Est GFR (Non-African American) 70.6; Magnesium 2.5 mg/dl (1.8-2.4); Potassium 4.4 mmol/L (3.5-5.1)
[2020-08-17 04:38] LABS: Phosphorus 2.4 mg/dl (2.5-4.9)
[2020-08-17] MEDS: CEFEPIME 2,000 MG in SYRINGE 0 ML IV SCH (04:39)
[2020-08-17] MEDS: LEVOTHYROXINE SODIUM 125 MCG TABLET PO SCH (04:39)
[2020-08-17] MEDS: CISATRACURIUM BESYLATE 40 MG in 0.9 % SODIUM CHLORIDE 80 ML IV SCH ×4 (04:39→22:38)
[2020-08-17 05:01] LABS: Basophils # (auto) 0.02 K/uL (0-0.2); Basophils % (auto) 0.1 %; Eosinophils # (auto) 0.02 K/uL (0-0.5); Eosinophils % (auto) 0.1 %; Immature Granulocytes # (auto) 0.08 K/uL (0.00-0.02); Immature Granulocytes % (auto) 0.5 %; Lymphocytes # (auto) 1.79 K/uL (1.2-3.4); Lymphocytes % (auto) 10.1 %; Monocytes # (auto) 0.95 K/uL (0.11-0.59); Monocytes % (auto) 5.3 %; Neutrophils # (auto) 14.91 K/uL (1.4-6.5); Neutrophils % (auto) 83.9 %
[2020-08-17 13:41] LABS: iSTAT Arterial Blood Gas HCO3 27 meg/L (19-24); iSTAT Arterial Blood Gas pCO2 60 mmHg (35-46); iSTAT Arterial Blood Gas pH 7.27 (7.35-7.45); iSTAT Arterial Blood Gas pO2 73 mmHg (80-95); iSTAT Carbon Dioxide 29 mmol/L (24-31); iSTAT FiO2 60 %; iSTAT Site Art Line
--- NOTE | 2020-08-17 17:27 | Hospitalist Progress Note ---
Date of Service August 17, 2020 Assessment & Plan (1) Acute respiratory failure with hypoxia: Pt continues to have high oxygen need, HFNC 60L and 100% FiO2, even with addition of oxymask on top of it high 80's when sitting up but he has only mild symptoms of dyspnea did not tolerate Bipap, did have epistaxis from Hi flow oxygen and therapeutic lovenox, did hold lovenox for one day now will return to high dose prophylactic dosing CXR 08/13 with worsening b/l pneumonia / developing ARDS, procalcitonin remains negative, bnp also negative 2nd to COVID-19 pneumonia. On 08/07 he was placed on empiric anticoagulation for that purpose, did not have objective improvement to suggest worsening was from clot burden pulmonary evaluation 08/13 with continued supportive care IV decadron 6mg daily, stopped by pulmonary critical care s/p plasma on 08/02/20. Remdesivir - completed 10 d course Completed 7-day course of rocephin - Completed 5-day course of zithromax - after decompensaiton and progression of cxr changes did have increased leukcytosis and mild procal will be placed on emperic vancomycin and cefepime, vancomycin stopped pulmonary med will ventilate prone, is requiring doses of pressors and fluid bolus Formal palliative care consult requested to refine goals of care, wishes for intubation/ventilation, etc. Patient ok with intubation/mech ventilation but would not want such for greater than 3 days. will continue to keep family engaged markos Lind [phone] daughter, spokes person (2) Pneumonia due to COVID-19 virus: see "resp failure" above. decline requiring intubation 08/15/20 therapeutic anticoagulation with lovenox begun on 08/07/20-> epistaxis, stopped 08/13, return to 40 mg sc daily extended remdesivir course to 10 days, LD was 08/13/20 (3) Polycythemia vera: Continue hydroxyurea. H/H and platelets are acceptable. PCV increases risk of VTE - full anticoagulation started 08/07 given worsening hypoxia. (4) Hypothyroidism: Continue levothyroxine 125 mcg daily last TSH was 02/2020 and was high (5) Hypertension: Blood pressures have been lower holding antihypertensive medicaitons and now requring pressors (6) CKD (chronic kidney disease): stage 3, now mild worseing with taylor CrCl is 70's (7) Melena: concern for such earlier this stay. however, stool was heme negative. H/H stable/acceptable. cont PPI bid (8) BPH (benign prostatic hyperplasia): previously on finasteride now has gay cath (9) DVT prophylaxis: lovenox 40mg daily prognosis remains guarded/poor Admission and Anticipated Discharge Date Admission Date: August 01, 2020 Subjective Remains prone, on vent support. Appears comfortable with sedation. Review of Systems Review of Systems: Unobtainable due to endotracheal tube Physical Exam Physical Exam: pt is mortally ill , on ventilatory support, poor ventilation PG Care Time/CCT Total # of Minutes Spent Total Time Spent with Patient: Total time spent is greater than 50% in coordination of care (as documented) at patient's floor/unit and/or counseling patient: Coding Level of Care Code 10814 Subseq Hosp Care Lvl 2 Diagnoses Acute respiratory failure with hypoxia J96.01 Pneumonia due to COVID-19 virus U07.1; J12.89 Polycythemia vera D45 Hypothyroidism E03.9 Hypertension I10 CKD (chronic kidney disease) N18.9 Melena K92.1 BPH (benign prostatic hyperplasia) N40.0 DVT prophylaxis Z29.9
[2020-08-17] MEDS: ENOXAPARIN INJ 40 MG/0.4 ML SYR SQ SCH (18:24)
[2020-08-17] MEDS: ASPIRIN 81 MG CHEW GT SCH (18:24)
[2020-08-17] MEDS: PANTOprazole 40 MG in SYRINGE 0 ML IV SCH (18:25)
[2020-08-17 20:02] LABS: iSTAT Art Bld Gas pCO2 Correct 50 mmHg (35-46); iSTAT Art Bld Gas pH Corrected 7.329 (7.35-7.45); iSTAT Arterial Blood Gas pCO2 50 mmHg (35-46); iSTAT Arterial Blood Gas pH 7.32 (7.35-7.45); iSTAT Arterial Blood Gas pO2 65 mmHg (80-95); iSTAT Arterial Blood Gas pO2 C 63; iSTAT Carbon Dioxide 26 mmol/L (24-31); iSTAT Hematocrit 42 % (42-52); iSTAT Hemoglobin 14.3 g/dl (14.0-18.0); iSTAT Potassium 4.2 mmol/L (3.3-5.0); iSTAT Sodium 140 mmol/L (135-144)
[2020-08-17 20:03] LABS: iSTAT Arterial Blood Gas HCO3 26 meg/L (19-24)
[2020-08-17] MEDS: fentaNYL DRIP 1,250 MCG/250 ML BAG IV SCH (20:24)
[2020-08-17 20:25] LABS: Patient Temperature 36.6; iSTAT Allen Test Not Performed; iSTAT Sample Type Arterial; iSTAT Site Art Line
[2020-08-18] MEDS: propofoL 1,000 MG/100 ML VIAL IV SCH ×5 (01:33→20:24)
[2020-08-18] MEDS: LEVOTHYROXINE SODIUM 125 MCG TABLET PO SCH (04:40)
[2020-08-18] MEDS: CISATRACURIUM BESYLATE 40 MG in 0.9 % SODIUM CHLORIDE 80 ML IV SCH (04:59)
[2020-08-18 05:05] LABS: iSTAT Allen Test Pass; iSTAT Art Bld Gas pCO2 Correct 48 mmHg (35-46); iSTAT Art Bld Gas pH Corrected 7.364 (7.35-7.45); iSTAT Arterial Blood Gas HCO3 27 meg/L (19-24); iSTAT Arterial Blood Gas pCO2 48 mmHg (35-46); iSTAT Arterial Blood Gas pH 7.36 (7.35-7.45); iSTAT Arterial Blood Gas pO2 59 mmHg (80-95); iSTAT Arterial Blood Gas pO2 C 57; iSTAT Carbon Dioxide 29 mmol/L (24-31); iSTAT FiO2 50 %; iSTAT Hematocrit 43 % (42-52); iSTAT Hemoglobin 14.6 g/dl (14.0-18.0); iSTAT Site Art Line; iSTAT Sodium 137 mmol/L (135-144)
[2020-08-18 05:30] LABS: Hematocrit (blood only) 44.5 % (42-52); Hemoglobin 14.3 g/dL (14.0-18.0); Mean Corpuscular Hemoglobin 34.9 pg (25-34); Mean Corpuscular Hgb Conc 32.1 g/dL (32-36); Mean Corpuscular Volume 108.5 fL (80-100); Mean Platelet Volume 11.3 fL (7.4-10.4); Platelet Count 343 K/uL (130-400); RDW Coefficient of Variation 15.3 % (11.5-14.5); RDW Standard Deviation 60.3 fL (36.4-46.3); White Blood Count 14.65 K/uL (4.8-10.8)
[2020-08-18 05:55] LABS: Calcium 8.2 mg/dl (8.5-10.1); Creatinine Clr Calc Pharmacy 81.3 ml/min; Est GFR (African American) 99.4; Est GFR (Non-African American) 85.7; Magnesium 2.4 mg/dl (1.8-2.4)
[2020-08-18 05:58] LABS: Phosphorus 2.3 mg/dl (2.5-4.9)
[2020-08-18] MEDS: fentaNYL DRIP 1,250 MCG/250 ML BAG IV SCH ×2 (06:09→14:53)
[2020-08-18 06:39] LABS: Basophils # (auto) 0.01 K/uL (0-0.2); Basophils % (auto) 0.1 %; Eosinophils # (auto) 0.03 K/uL (0-0.5); Eosinophils % (auto) 0.2 %; Immature Granulocytes # (auto) 0.08 K/uL (0.00-0.02); Immature Granulocytes % (auto) 0.5 %; Lymphocytes # (auto) 1.81 K/uL (1.2-3.4); Lymphocytes % (auto) 12.4 %; Monocytes # (auto) 0.86 K/uL (0.11-0.59); Monocytes % (auto) 5.9 %; Neutrophils # (auto) 11.86 K/uL (1.4-6.5); Neutrophils % (auto) 80.9 %
--- NOTE | 2020-08-18 07:55 | Hospitalist Progress Note ---
Date of Service August 18, 2020 Assessment & Plan (1) Acute respiratory failure with hypoxia: Pt was intubated 08/15/20 with inability to sustain hypoxia with highflow 60 liters and 15l oxymask on top of it CXR with worsening b/l pneumonia / developing ARDS, added antibiotics for concern for secondary infection Gram negative after decompensaiton and progression of cxr changes did have increased leukocytosis and mild procal will be placed on empiric vancomycin and cefepime, vancomycin stopped pulmonary med intermittently has ventilate prone, currently weaning pressors and sedation 2nd to COVID-19 pneumonia. On 08/07 he was placed on empiric anticoagulation for that purpose, did not have objective improvement to suggest worsening was from clot burden pulmonary evaluation 08/13 with continued supportive care IV decadron 6mg daily, stopped by pulmonary critical care s/p plasma on 08/02/20. Remdesivir - completed 10 d course Formal palliative care consult requested to refine goals of care, wishes for intubation/ventilation, etc. Patient ok with intubation/mech ventilation but would not want such for prolongued, will continue to keep family engaged markos Lind [phone] daughter, spokes person (2) Pneumonia due to COVID-19 virus: see "resp failure" above. decline requiring intubation 08/15/20 therapeutic anticoagulation with lovenox begun on 08/07/20-> epistaxis, stopped 08/13, return to 40 mg sc daily extended remdesivir course to 10 days, LD was 08/13/20 (3) Polycythemia vera: Continue hydroxyurea. H/H and platelets are acceptable. PCV increases risk of VTE - full anticoagulation started 08/07 given worsening hypoxia. (4) Hypothyroidism: Continue levothyroxine 125 mcg daily last TSH was 02/2020 and was high (5) Hypertension: Blood pressures have been lower holding antihypertensive medicaitons and now requring pressors (6) CKD (chronic kidney disease): stage 3, now mild worseing with taylor CrCl is 70's (7) Melena: concern for such earlier this stay. however, stool was heme negative. H/H stable/acceptable. cont PPI bid (8) BPH (benign prostatic hyperplasia): previously on finasteride now has gay cath (9) DVT prophylaxis: lovenox 40mg daily prognosis remains guarded/poor Admission and Anticipated Discharge Date Admission Date: August 01, 2020 Subjective Patient is able to come off proning ventilation he is having his sedation lightened he is able to have some meaningful responses. His FiO2 is been attempted to be reduced. Family was called, Demian and updated Review of Systems Review of Systems: Unobtainable due to endotracheal tube Physical Exam Physical Exam: pt is mortally ill , on ventilatory support, poor ventilation He is able to raise his eyebrows to his voice his lungs sound coarse abdomen is soft Results & Data Results & Data ([facility]) Vital Signs (Past 12 Hours) Vital Signs Temp Pulse Resp BP Pulse Ox 08/18/20 06:00 98.6 F 96 H 26 H 125/62 90 08/18/20 05:30 98.4 F 95 H 26 H 90 08/18/20 05:00 98.1 F 98 H 26 H 131/55 L 89 L 08/18/20 04:30 98.1 F 95 H 89 L 08/18/20 04:00 98.1 F 90 26 H 181/85 H 89 L 08/18/20 03:30 98.2 F 84 26 H 114/65 95 08/18/20 03:00 98.2 F 72 26 H 114/55 L 94 08/18/20 02:30 98.2 F 79 26 H 118/57 L 94 08/18/20 02:00 98.2 F 81 26 H 107/55 L 94 08/18/20 01:30 98.2 F 81 26 H 112/56 L 94 08/18/20 01:07 89 26 H 93 08/18/20 01:00 98.4 F 84 26 H 106/60 93 08/18/20 00:30 98.4 F 82 26 H 152/66 H 92 08/18/20 00:00 98.4 F 86 26 H 151/67 H 92 08/17/20 23:30 98.4 F 89 26 H 168/80 H 92 08/17/20 23:00 98.2 F 96 H 142/69 H 92 08/17/20 22:30 98.2 F 97 H 26 H 181/78 H 93 08/17/20 22:02 86 26 H 96 08/17/20 22:00 98.2 F 84 26 H 159/74 H 96 08/17/20 21:30 98.1 F 86 26 H 152/73 H 97 08/17/20 21:00 97.9 F 74 26 H 138/68 97 08/17/20 20:30 97.9 F 75 26 H 120/79 97 08/17/20 20:03 85 26 H 97 08/17/20 20:00 97.9 F 83 26 H 154/79 H 96 PG Care Time/CCT Total # of Minutes Spent Total Time Spent with Patient: Total time spent is greater than 50% in coordination of care (as documented) at patient's floor/unit and/or counseling patient: Coding Level of Care Code 34288 Subseq Hosp Care Lvl 2 Diagnoses Acute respiratory failure with hypoxia J96.01 Pneumonia due to COVID-19 virus U07.1; J12.89 Polycythemia vera D45 Hypothyroidism E03.9 Hypertension I10 CKD (chronic kidney disease) N18.9 Melena K92.1 BPH (benign prostatic hyperplasia) N40.0 DVT prophylaxis Z29.9
[2020-08-18] MEDS ORDERED: LORazepam 1 MG/2 ML VIAL IV PRN (09:02)
[2020-08-18] MEDS: ENOXAPARIN INJ 40 MG/0.4 ML SYR SQ SCH (10:00)
[2020-08-18] MEDS: PANTOprazole 40 MG in SYRINGE 0 ML IV SCH (10:00)
[2020-08-18] MEDS: ASPIRIN 81 MG CHEW GT SCH (10:01)
--- NOTE | 2020-08-18 10:16 | Critical Care Progress Note ---
Date of Service August 18, 2020 Assessment & Plan (1) Acute respiratory failure with hypoxia: Neurologic: Analgesics and sedation: We will wean the Nimbex drip off. We are weaning down the propofol and fentanyl. Delirium precautions Pulmonary: He is off of Decadron at this time. Continuing lung protective ventilation strategy. We will likely hold off proning today. Weaning PEEP and FiO2 as able. We will have to consider tracheostomy. Palliative care is following. We will check an x-ray today. Cardiovascular: Continue low-dose Levophed as needed. Hypotension likely related to sedation. Gastrointestinal: Continue Protonix daily. Continue to increase tube feeds to goal. Renal: His creatinine is trending upward slightly. We will continue to monitor. Replace electrolytes per protocol. Infectious disease: Procalcitonin is within normal limits. Cultures negative to date. Hematologic: He has a history of polycythemia vera. Continue Lovenox 40 mg daily. Endocrine: Insulin protocol per ICU. Continue levothyroxine. Lines and tubes: Peripheral IVs, right IJ and right radial line in place. VTE prophylaxis: 40 mg Lovenox daily. CODE STATUS: Full code. Family at bedside: None available due to the COVID-19 pandemic Disposition: His prognosis is extremely poor. He is to remain in the ICU. I have personally spent 48 minutes of critical care time in the direct management of this patient. This is a life/limb threatening event. This includes time spent evaluating patient, direct bedside care, chart review, placing orders, interpretation of diagnostic studies, discussion with consultants, patient, and family members, as well as other required patient management activities. This time is exclusive of all separately billable procedures, and teaching time and separate from and in addition to any other critical care service time. (2) Palliative care encounter: (3) Acute respiratory failure with hypoxemia: (4) Pneumonia due to COVID-19 virus: (5) Shock: Admission and Anticipated Discharge Date Admission Date: August 01, 2020 Subjective Patient was layed on his back at 3:30 in the morning today. He was weaned off paralytics. He does move his limbs spontaneously at times. He is not following commands due to high doses of sedation. We have weaned him down to 30 mg of propofol and 120 mcg of fentanyl. I have also wean his vent to a respiratory rate of 20 and an FiO2 of 50%. He is currently on a PEEP of 12. His tube feeds are at 10 cc an hour. We were able to wean his Levophed off this morning. Review of Systems Review of Systems: Unobtainable due to endotracheal tube and Unobtainable due to reduced consciousness Physical Exam Constitutional: well developed and well nourished Intubated and sedated Eyes: PERRL, conjunctivae normal, anicteric sclerae ENMT: external ear and nose normal, oropharynx normal Neck: normal visual inspection Right IJ in place Respiratory: normal respiratory effort, lungs clear to auscultation Cardiovascular: RRR, no murmur, no edema Gastrointestinal (Abdomen): normal bowel sounds, soft, nontender, no hepatosplenomegaly Musculoskeletal: no cyanosis or clubbing, extremities motor strength 5/5 Skin: no rashes, warm and dry Neurologic: Unable to assess due to sedation Psychiatric: Unable to assess due to sedation Results & Data Results & Data ([facility]) Vital Signs (Past 12 Hours) Vital Signs Temp Pulse Resp BP Pulse Ox 08/18/20 08:06 97 H 26 H 93 08/18/20 08:00 97 H 08/18/20 06:00 98.6 F 96 H 26 H 125/62 90 08/18/20 05:30 98.4 F 95 H 26 H 90 08/18/20 05:00 98.1 F 98 H 26 H 131/55 L 89 L 08/18/20 04:30 98.1 F 95 H 89 L 08/18/20 04:00 98.1 F 90 26 H 181/85 H 89 L 08/18/20 03:30 98.2 F 84 26 H 114/65 95 08/18/20 03:00 98.2 F 72 26 H 114/55 L 94 08/18/20 02:30 98.2 F 79 26 H 118/57 L 94 08/18/20 02:00 98.2 F 81 26 H 107/55 L 94 08/18/20 01:30 98.2 F 81 26 H 112/56 L 94 08/18/20 01:07 89 26 H 93 08/18/20 01:00 98.4 F 84 26 H 106/60 93 08/18/20 00:30 98.4 F 82 26 H 152/66 H 92 08/18/20 00:00 98.4 F 86 26 H 151/67 H 92 08/17/20 23:30 98.4 F 89 26 H 168/80 H 92 08/17/20 23:00 98.2 F 96 H 142/69 H 92 08/17/20 22:30 98.2 F 97 H 26 H 181/78 H 93 I reviewed the vital signs, labs and imaging Coding Level of Care Code Critical Care 1st 30-74 mins Diagnoses Acute respiratory failure with hypoxia J96.01 Palliative care encounter Z51.5 Acute respiratory failure with hypoxemia J96.01 Pneumonia due to COVID-19 virus U07.1; J12.89 Shock R57.9 Time Spent (min) 48
--- NOTE | 2020-08-18 11:36 | XRay Report ---
XR chest 1V portable CLINICAL HISTORY: follow up ards, proning, covid COMPARISON STUDY: Chest radiograph August 16, 2020. FINDINGS: Tip of the endotracheal tube is 5 cm above the ashwin. Tip of right internal jugular centra l line is within the mid SVC. Tip of nasogastric tube is below the lower aspect of this image but at least within the proximal stomach. No pneumothorax or pleural effusion is noted. Cardiomediastinal si lhouette is stable. There has been slight improvement in bilateral airspace opacities and interstitia l thickening since prior exam. Moderate residual airspace opacity persists. IMPRESSION: 1. Satisfactory positioning of lines and tubes. 2. Slight improvement in lung aeration with persistent extensive interstitial and alveolar opacities which suggest an infectious process or ARDS. ACT 112: Negative or not required by law. Electronically signed by: Tex Mares M.D. 08/18/2020 11:35 AM
[2020-08-18] MEDS ORDERED: FUROSEMIDE 40 MG in SYRINGE 0 ML IV SCH (14:30)
[2020-08-18] MEDS ORDERED: METOPROLOL TARTRATE 1 MG/ML VIAL IV ONE ×3 (20:38→21:06)
[2020-08-18] MEDS ORDERED: STAT IV Infusion **Titration per Protocol STA (21:12)
[2020-08-18] MEDS ORDERED: METOPROLOL TARTRATE 1 MG/ML VIAL IV STA ×3 (21:12→21:14)
[2020-08-18] MEDS ORDERED: dilTIAZem HCL 125 MG in DEXTROSE 5% 100 ML IV SCH (21:15)
--- NOTE | 2020-08-18 21:25 | Communication Note ---
Date of Service: August 18, 2020 75-year-old male mechanically ventilated in the ICU for COVID-19 pneumonia and hypoxic respiratory failure. This evening the patient entered arrhythmia into A. fib RVR with rate of 160 confirmed with a EKG. Initially patient's blood pressure was normotensive. He received 5 mg IV followed by an additional 5 mg which did temporarily improve his rate, however he remained in A. fib and soon became hypotensive with rate 120s to 140s. Decision was made to attempt synchronized cardioversion and he was initially shocked at 150 J which was unsuccessful in conversion. Another attempt at 200 J did temporarily achieve conversion to sinus rhythm however this only lasted a few seconds and he reentered A. fib RVR. Patient's blood pressure did improve following this an additional dose of IV metoprolol was given. Patient remains in A. fib RVR and pressures continue to be soft. Will attempt rate control with Cardizem drip for now and restart patient's levo which had previously been weaned today. BMP pending and will follow up and replete electrolytes if indicated. Will increase Lovenox to therapeutic dose. CRITICAL CARE TIME - I have personally spent 30 minutes of critical care time in the direct management of this patient. This is a life/limb threatening event. This includes time spent evaluating patient, direct bedside care, chart review, placing orders, interpretation of diagnostic studies, discussion with consultants, patient, and family members, as well as other required patient management activities. This time is exclusive of all separately billable procedures, and teaching time and separate from and in addition to any other critical care service time. Coding Level of Care Code Critical Care avelina gracia'ruth 30 min
[2020-08-18 21:42] LABS: BUN Creatinine Ratio 27.1 (10-20); Calcium 8.4 mg/dl (8.5-10.1); Creatinine Clr Calc Pharmacy 57.3 ml/min; Est GFR (African American) 70.7; Magnesium 2.3 mg/dl (1.8-2.4); Phosphorus 2.7 mg/dl (2.5-4.9)
[2020-08-18] MEDS ORDERED: ACETAMINOPHEN 325 MG TAB PO PRN (23:27)
[2020-08-19] MEDS: propofoL 1,000 MG/100 ML VIAL IV SCH ×5 (01:47→14:48)
[2020-08-19] MEDS: fentaNYL DRIP 1,250 MCG/250 ML BAG IV SCH ×3 (04:18→21:11)
[2020-08-19] MEDS: LEVOTHYROXINE SODIUM 125 MCG TABLET PO SCH (04:18)
[2020-08-19 04:45] LABS: Hemoglobin 13.5 g/dL (14.0-18.0); Mean Corpuscular Hemoglobin 35.4 pg (25-34); Mean Corpuscular Hgb Conc 32.9 g/dL (32-36); Mean Corpuscular Volume 107.6 fL (80-100); Mean Platelet Volume 10.9 fL (7.4-10.4); Platelet Count 293 K/uL (130-400); RDW Coefficient of Variation 15.3 % (11.5-14.5); RDW Standard Deviation 59.3 fL (36.4-46.3); Red Blood Count 3.81 M/uL (4.7-6.1); White Blood Count 14.82 K/uL (4.8-10.8)
[2020-08-19 05:06] LABS: BUN Creatinine Ratio 28.4 (10-20); Calcium 7.9 mg/dl (8.5-10.1); Creatinine Clr Calc Pharmacy 59.4 ml/min; Est GFR (African American) 73.8; Est GFR (Non-African American) 63.7; Magnesium 2.4 mg/dl (1.8-2.4); Phosphorus 2.8 mg/dl (2.5-4.9); Potassium 3.6 mmol/L (3.5-5.1)
[2020-08-19 05:13] LABS: Basophils # (auto) 0.02 K/uL (0-0.2); Basophils % (auto) 0.1 %; Eosinophils # (auto) 0.09 K/uL (0-0.5); Eosinophils % (auto) 0.6 %; Immature Granulocytes # (auto) 0.08 K/uL (0.00-0.02); Immature Granulocytes % (auto) 0.5 %; Lymphocytes # (auto) 1.94 K/uL (1.2-3.4); Lymphocytes % (auto) 13.1 %; Monocytes # (auto) 1.16 K/uL (0.11-0.59); Monocytes % (auto) 7.8 %; Neutrophils # (auto) 11.53 K/uL (1.4-6.5); Neutrophils % (auto) 77.9 %
[2020-08-19 05:38] LABS: Bilirubin,Total 1.7 mg/dl (0.2-1); Total Protein 6.1 gm/dl (6.4-8.2)
[2020-08-19 05:42] LABS: Albumin Globulin Ratio 0.6 (0.9-2); Albumin Level 2.3 gm/dl (3.4-5.0); Globulin 3.8 gm/dl (2.5-4.0)
[2020-08-19 05:50] LABS: iSTAT Allen Test Pass; iSTAT Art Bld Gas pCO2 Correct 46 mmHg (35-46); iSTAT Art Bld Gas pH Corrected 7.376 (7.35-7.45); iSTAT Arterial Blood Gas HCO3 27 meg/L (19-24); iSTAT Arterial Blood Gas pCO2 45 mmHg (35-46); iSTAT Arterial Blood Gas pH 7.38 (7.35-7.45); iSTAT Arterial Blood Gas pO2 57 mmHg (80-95); iSTAT Arterial Blood Gas pO2 C 59; iSTAT Carbon Dioxide 28 mmol/L (24-31); iSTAT FiO2 50 %; iSTAT Hematocrit 40 % (42-52); iSTAT Hemoglobin 13.6 g/dl (14.0-18.0); iSTAT Potassium 3.5 mmol/L (3.3-5.0); iSTAT Site L Radial; iSTAT Sodium 136 mmol/L (135-144)
[2020-08-19] MEDS ORDERED: POTASSIUM CHLORIDE 20 MEQ/15 ML UDC PO STA (05:50)
--- NOTE | 2020-08-19 07:56 | XRay Report ---
XR chest 1V portable CLINICAL HISTORY: Respiratory failure COMPARISON STUDY: 08/18/2020 FINDINGS: The cardiac and mediastinal contours remain stable. There is a right internal jugular centr al venous catheter unchanged in position. There is a nasogastric tube within the stomach. There is an endotracheal tube positioned approximately 5 cm above the ashwin. There are persistent bilateral pul monary airspace opacities right greater than left. The findings are suggestive of a multifocal pneumo nitis.[ IMPRESSION: No significant change from the prior study. Persistent bilateral multifocal airspace opac ities ACT 112: Negative or not required by law. Electronically signed by: James Patricia M.D. 08/19/2020 7:55 AM
--- NOTE | 2020-08-19 08:33 | Critical Care Progress Note ---
Date of Service August 19, 2020 Assessment & Plan (1) Acute respiratory failure with hypoxia: Neurologic: Toxic metabolic encephalopathy -Transition from propofol to Versed Pulmonary: Acute hypoxic respiratory failure: Severe hypoxic respiratory failure -Outside of 2-week window for Meduri protocol -High PEEP low FiO2 table -Pronation for severe hypoxic respiratory failure Cardiovascular: Paroxysmal atrial fibrillation with rapid ventricular response -Normal sinus rhythm at this time Gastrointestinal: Continue Protonix daily. -N.p.o. while prone -We will bolus feeds during supine Renal: Replace electrolytes per protocol. Infectious disease: Procalcitonin is within normal limits. Cultures negative to date. Hematologic: He has a history of polycythemia vera. Continue Lovenox 40 mg daily. Endocrine: Insulin protocol per ICU. Continue levothyroxine. Lines and tubes: Peripheral IVs, right IJ and right radial line in place. VTE prophylaxis: 40 mg Lovenox daily. CODE STATUS: Full code. Family at bedside: None available due to the COVID-19 pandemic Disposition: His prognosis is extremely poor. He is to remain in the ICU. (2) Palliative care encounter: (3) Acute respiratory failure with hypoxemia: (4) Pneumonia due to COVID-19 virus: (5) Shock: Admission and Anticipated Discharge Date Admission Date: August 01, 2020 Supervising Physician Co-Signing Physician Notes Patient was discussed in multidisciplinary rounds I was present and assisted with the pronating process. Patient tolerated the pronating movement. I have personally spent 90 minutes of critical care time in the direct management of this patient. This is a life/limb threatening event. This includes time spent evaluating patient, direct bedside care, chart review, placing orders, interpretation of diagnostic studies, discussion with consultants, patient, and/or family members regarding treatment decisions, as well as other required patient management activities. This time is exclusive of all separately billable procedures, and teaching time and separate from and in addition to any other critical care service time. Subjective Patient intubated and sedated, overnight converted to atrial fibrillation with rapid ventricular response requiring which occurred via medication. Patient is able to come off proning ventilation he is having his sedation lightened he is able to have some meaningful responses. His FiO2 is been attempted to be reduced. Family was called, Demian and updated Review of Systems Review of Systems: Unobtainable due to endotracheal tube Physical Exam Physical Exam: General: Sedated Glascow Coma Scale: Eyes: 3, Verbal 1T, Motor 5, Total 9T nontoxic. Skin: Warm, dry, Head: Atraumatic Ears, nose, mouth and throat: Obscured by endotracheal tube Cardiovascular: Normal peripheral perfusion Respiratory: Ventilator settings reviewed Gastrointestinal: Non distended, no involuntary guarding Musculoskeletal: No deformity Results & Data Results & Data ([facility]) Vital Signs (Past 12 Hours) Vital Signs Temp Pulse Resp BP Pulse Ox 08/19/20 07:55 91 H 26 H 90 08/19/20 06:00 37.5 C 88 20 119/65 91 08/19/20 05:30 37.5 C 80 20 136/78 92 08/19/20 05:00 37.5 C 86 20 133/64 90 08/19/20 04:30 37.6 C H 91 H 20 118/65 93 08/19/20 04:00 37.6 C H 85 20 124/68 92 08/19/20 03:45 82 24 92 08/19/20 03:30 37.8 C H 88 20 129/72 91 08/19/20 03:00 37.9 C H 85 20 87/51 L 93 08/19/20 02:30 37.9 C H 77 20 91/62 L 92 08/19/20 02:00 38.0 C H 84 20 96/56 L 90 08/19/20 01:30 38.2 C H 76 20 100/55 L 91 08/19/20 01:00 38.3 C H 102 H 20 109/63 91 08/19/20 00:30 38.3 C H 107 H 20 113/59 L 93 08/19/20 00:00 38.3 C H 100 H 20 110/60 91 08/18/20 23:47 38.3 C H 108 H 20 97/62 L 91 08/18/20 23:30 38.3 C H 104 H 20 98/63 L 92 08/18/20 23:20 104 H 25 H 91 08/18/20 23:00 38.3 C H 118 H 20 103/59 L 92 08/18/20 22:47 38.3 C H 105 H 20 93/65 L 91 08/18/20 22:30 38.2 C H 108 H 20 104/74 90 08/18/20 22:00 38.2 C H 100 H 20 110/65 91 08/18/20 21:47 38.2 C H 106 H 20 95/55 L 91 08/18/20 21:29 38.3 C H 130 H 20 98/69 L 91 08/18/20 21:14 38.3 C H 98 H 20 100/59 L 93 08/18/20 21:10 110 H 08/18/20 21:01 38.2 C H 157 H 20 89/57 L 93 08/18/20 20:45 130 H 08/18/20 20:44 38.2 C H 123 H 20 93/65 L 95 08/18/20 20:40 160 H Laboratory Results 08/19/20 08/19/20 08/19/20 Range/Units 05:37 04:29 04:29 WBC 14.82 H (4.8-10.8) K/uL RBC 3.81 L (4.7-6.1) M/uL Hgb 13.5 L (14.0-18.0) g/dL POC Hgb 13.6 L (14.0-18.0) g/dl Hct 41.0 L (42-52) % POC Hct 40 L (42-52) % MCV 107.6 H (80-100) fL MCH 35.4 H (25-34) pg MCHC 32.9 (32-36) g/dL RDW Std Deviation 59.3 H (36.4-46.3) fL RDW Coeff of Richard 15.3 H (11.5-14.5) % Plt Count 293 (130-400) K/uL MPV 10.9 H (7.4-10.4) fL Immature Gran % (Auto) 0.5 % Neut % (Auto) 77.9 % Lymph % (Auto) 13.1 % [place] % (Auto) 7.8 % Eos % (Auto) 0.6 % Baso % (Auto) 0.1 % Neut # (Auto) 11.53 H (1.4-6.5) K/uL Lymph # (Auto) 1.94 (1.2-3.4) K/uL [place] # (Auto) 1.16 H (0.11-0.59) K/uL Eos # (Auto) 0.09 (0-0.5) K/uL Baso # (Auto) 0.02 (0-0.2) K/uL Immature Gran # (Auto) 0.08 H (0.00-0.02) K/uL Sample Site L Radial POC pH 7.38 (7.35-7.45) POC pCO2 45 (35-46) mmHg POC pO2 57 L (80-95) mmHg POC HCO3 27 H (19-24) [place]/L POC Total CO2 28 (24-31) mmol/L POC Base Excess 2.0 H (-9-1.8) [place]/L ABG pH (Temp Correct) 7.376 (7.35-7.45) ABG pCO2 (Temp Corrct 46 (35-46) mmHg POC ABG pO2 at Pt Temp 59 POC ABG O2 Sat 89.0 L (90-95) % John Test Pass O2 Delivery Device Ventilator POC O2 Rate 20 Minute Ventilation 9.0 POC FiO2 50 % Tidal Volume 450 PEEP 10 POC Sodium 136 (135-144) mmol/L Sodium 137 (136-145) mmol/L POC Potassium 3.5 (3.3-5.0) mmol/L Potassium 3.6 (3.5-5.1) mmol/L Chloride 102 (98-107) mmol/L Carbon Dioxide 30 (21-32) mmol/L Anion Gap 5.0 (3-11) BUN 31 H (7-18) mg/dl Creatinine 1.11 (0.6-1.4) mg/dl Est Cr Clr Drug Dosing 59.4 ml/min Est GFR ( Amer) 73.8 Est GFR (Non-Af Amer) 63.7 BUN/Creatinine Ratio 28.4 H (10-20) Glucose 107 H (70-99) mg/dl Calcium 7.9 L (8.5-10.1) mg/dl Phosphorus 2.8 (2.5-4.9) mg/dl Magnesium 2.4 (1.8-2.4) mg/dl Total Bilirubin 1.7 H (0.2-1) mg/dl AST 20 (15-37) U/L ALT 23 (12-78) U/L Alkaline Phosphatase 63 (45-117) U/L Total Protein 6.1 L (6.4-8.2) gm/dl Albumin 2.3 L (3.4-5.0) gm/dl Globulin 3.8 (2.5-4.0) gm/dl Albumin/Globulin Ratio 0.6 L (0.9-2) 08/18/20 Range/Units 21:15 WBC (4.8-10.8) K/uL RBC (4.7-6.1) M/uL Hgb (14.0-18.0) g/dL POC Hgb (14.0-18.0) g/dl Hct (42-52) % POC Hct (42-52) % MCV (80-100) fL MCH (25-34) pg MCHC (32-36) g/dL RDW Std Deviation (36.4-46.3) fL RDW Coeff of Richard (11.5-14.5) % Plt Count (130-400) K/uL MPV (7.4-10.4) fL Immature Gran % (Auto) % Neut % (Auto) % Lymph % (Auto) % [place] % (Auto) % Eos % (Auto) % Baso % (Auto) % Neut # (Auto) (1.4-6.5) K/uL Lymph # (Auto) (1.2-3.4) K/uL [place] # (Auto) (0.11-0.59) K/uL Eos # (Auto) (0-0.5) K/uL Baso # (Auto) (0-0.2) K/uL Immature Gran # (Auto) (0.00-0.02) K/uL Sample Site POC pH (7.35-7.45) POC pCO2 (35-46) mmHg POC pO2 (80-95) mmHg POC HCO3 (19-24) [place]/L POC Total CO2 (24-31) mmol/L POC Base Excess (-9-1.8) [place]/L ABG pH (Temp Correct) (7.35-7.45) ABG pCO2 (Temp Corrct (35-46) mmHg POC ABG pO2 at Pt Temp POC ABG O2 Sat (90-95) % John Test O2 Delivery Device POC O2 Rate Minute Ventilation POC FiO2 % Tidal Volume PEEP POC Sodium (135-144) mmol/L Sodium 139 (136-145) mmol/L POC Potassium (3.3-5.0) mmol/L Potassium 4.0 (3.5-5.1) mmol/L Chloride 104 (98-107) mmol/L Carbon Dioxide 28 (21-32) mmol/L Anion Gap 6.0 (3-11) BUN 31 H (7-18) mg/dl Creatinine 1.15 D (0.6-1.4) mg/dl Est Cr Clr Drug Dosing 57.3 ml/min Est GFR ( Amer) 70.7 Est GFR (Non-Af Amer) 61.0 BUN/Creatinine Ratio 27.1 H (10-20) Glucose 106 H (70-99) mg/dl Calcium 8.4 L (8.5-10.1) mg/dl Phosphorus 2.7 (2.5-4.9) mg/dl Magnesium 2.3 (1.8-2.4) mg/dl Total Bilirubin (0.2-1) mg/dl AST (15-37) U/L ALT (12-78) U/L Alkaline Phosphatase (45-117) U/L Total Protein (6.4-8.2) gm/dl Albumin (3.4-5.0) gm/dl Globulin (2.5-4.0) gm/dl Albumin/Globulin Ratio (0.9-2) Diagnostic Findings Reviewed chest x-ray today Coding Level of Care Code Critical Care ea addt'l 30 min Diagnoses Acute respiratory failure with hypoxia J96.01 Palliative care encounter Z51.5 Acute respiratory failure with hypoxemia J96.01 Pneumonia due to COVID-19 virus U07.1; J12.89 Shock R57.9
[2020-08-19] MEDS ORDERED: ENOXAPARIN 100 MG/1ML SYR SC SCH (09:00)
--- NOTE | 2020-08-19 09:18 | Electrocardiogram Report ---
Test Reason : Blood Pressure : / mmHG Vent. Rate : 151 BPM Atrial Rate : 147 BPM P-R Int : 000 ms QRS Dur : 090 ms QT Int : 280 ms P-R-T Axes : 000 026 201 degrees QTc Int : 443 ms Atrial fibrillation with rapid ventricular response with premature ventricular or aberrantly conducte d complexes Inferolateral ST abnormality Abnormal ECG When compared with ECG of 15-AUG-2020 06:26, ST now depressed in Inferior leads Confirmed by Patrick Auguste ([id number]) on 08/19/2020 9:18:09 AM Referred By: REFERRED SELF Confirmed By:Patrick Auguste
[2020-08-19] MEDS ORDERED: STAT IV Infusion **Titration per Protocol STA (09:53)
[2020-08-19] MEDS ORDERED: MIDAZOLAM BOLUS FROM BAG IV PRN (09:53)
[2020-08-19] MEDS: MIDAZOLAM HCL 125 MG/250 ML BAG IV PRN (11:52)
[2020-08-19] MEDS: METOPROLOL TARTRATE 25 MG TAB PO SCH ×3 (11:52→20:07)
[2020-08-19] MEDS: ALBUMIN 25% 12.5 GM/50 ML VIAL IV SCH ×2 (11:52→13:13)
[2020-08-19] MEDS: PANTOprazole 40 MG in SYRINGE 0 ML IV SCH (11:53)
[2020-08-19] MEDS: ASPIRIN 81 MG CHEW GT SCH (11:53)
--- NOTE | 2020-08-19 11:55 | Palliative Care Progress Note ---
Date of Service August 19, 2020 Assessment & Plan (1) Palliative care encounter: Jefry's status was discussed at ICU rounds this morning with Dr. Vázquez. I had a lengthy conversation with his daughter, Shaye, giving a medical update. The patient did require cardioversion two times yesterday as he went into rapid Afib. He was started on a Cardizem gtt as well. Today, he will be in a proned position for 18 hours. I suggested that it may be beneficial to have the patients son and daughter come in for a family meeting later this week depending on how the patient progresses for them to have a visual of their father and to speak directly with the care team regarding his overall goals of care. Shaye was in agreement with this. She has off on and could drive to [place] [employer] then. She will speak with her brothers radha and I will reach out tomorrow to establish a more concrete time frame. I will also work on approval for window visitation/meeting this week. We will continue to follow. (2) Pneumonia due to COVID-19 virus: Admission and Anticipated Discharge Date Admission Date: August 01, 2020 Subjective Patient FiO2 0.40 tidal volume 450, RR 20, PEEP 14. Patient will be proned for the next 18 hours. Sedation weaning per protocols and continued neurolgical assessment. See A/P for further details. Review of Systems Review of Systems: Palliative Performance Score 20% Physical Exam Physical Exam: Deferred due to COVID-19. Discussed with the Hospitalist Results & Data ([facility]) Vital Signs (Past 12 Hours) Vital Signs Temp Pulse Resp BP Pulse Ox 08/19/20 10:52 86 26 H 91 08/19/20 09:35 20 08/19/20 07:55 91 H 26 H 90 08/19/20 06:00 37.5 C 88 20 119/65 91 08/19/20 05:30 37.5 C 80 20 136/78 92 08/19/20 05:00 37.5 C 86 20 133/64 90 08/19/20 04:30 37.6 C H 91 H 20 118/65 93 08/19/20 04:00 37.6 C H 85 20 124/68 92 08/19/20 03:45 82 24 92 08/19/20 03:30 37.8 C H 88 20 129/72 91 08/19/20 03:00 37.9 C H 85 20 87/51 L 93 08/19/20 02:30 37.9 C H 77 20 91/62 L 92 08/19/20 02:00 38.0 C H 84 20 96/56 L 90 08/19/20 01:30 38.2 C H 76 20 100/55 L 91 08/19/20 01:00 38.3 C H 102 H 20 109/63 91 08/19/20 00:30 38.3 C H 107 H 20 113/59 L 93 08/19/20 00:00 38.3 C H 100 H 20 110/60 91 PG Care Time/CCT Total # of Minutes Spent Total Time Spent with Patient: Total time spent is greater than 50% in coordination of care (as documented) at patient's floor/unit and/or counseling patient: 45 Coding Level of Care Code 86730 Subseq Hosp Care Lvl 3 Diagnoses Palliative care encounter Z51.5 Pneumonia due to COVID-19 virus U07.1; J12.89 Time Spent (min) 45 Time Spent Midlevel Total time spent 45 minutes with > 50% of that time spent discussing the patient plan of care at ICU rounds, discussing goals of care with the patients family and collaborating with IDT
--- NOTE | 2020-08-19 15:54 | Hospitalist Progress Note ---
Date of Service August 19, 2020 Assessment & Plan (1) Acute respiratory failure with hypoxia: Pt was intubated 08/15/20 with inability to sustain hypoxia with highflow 60 liters and 15l oxymask on top of it CXR with worsening b/l pneumonia / developing ARDS, added antibiotics for concern for secondary infection Gram negative after decompensaiton and progression of cxr changes did have increased leukocytosis and mild procal will be placed on empiric cefepime pulmonary med intermittently has ventilate prone, currently weaning pressors and sedation 2nd to COVID-19 pneumonia. On 08/07 he was placed on empiric anticoagulation for that purpose, did not have objective improvement to suggest worsening was from clot burden pulmonary evaluation 08/13 with continued supportive care IV decadron 6mg daily, stopped by pulmonary critical care s/p plasma on 08/02/20. Remdesivir - completed 10 d course Formal palliative care consult requested to refine goals of care, wishes for intubation/ventilation, etc. Patient ok with intubation/mech ventilation but would not want such for prolonged, will continue to keep family engaged markos Lind [phone] daughter, spokes person (2) Pneumonia due to COVID-19 virus: see "resp failure" above. decline requiring intubation 08/15/20 therapeutic anticoagulation with lovenox begun on 08/07/20-> epistaxis, stopped 08/13, return to 40 mg sc daily extended remdesivir course to 10 days, LD was 08/13/20 (3) Polycythemia vera: Continue hydroxyurea. H/H and platelets are acceptable. PCV increases risk of VTE - full anticoagulation started 08/07 given worsening hypoxia. (4) Hypothyroidism: Continue levothyroxine 125 mcg daily last TSH was 02/2020 and was high (5) Hypertension: Blood pressures have been lower holding antihypertensive medicaitons and now requring pressors (6) CKD (chronic kidney disease): stage 3, now mild worseing with taylor CrCl is 70's (7) Melena: concern for such earlier this stay. however, stool was heme negative. H/H stable/acceptable. cont PPI bid (8) BPH (benign prostatic hyperplasia): previously on finasteride now has gay cath (9) DVT prophylaxis: lovenox 40mg daily prognosis remains guarded/poor Admission and Anticipated Discharge Date Admission Date: August 01, 2020 Subjective patient placed prone today ICU staff and palliative care in discussions with family about goals of care Review of Systems Review of Systems: Unobtainable due to endotracheal tube Physical Exam Constitutional: + mechanically ventilated (prone) Neck: trachea midline, no thyromegaly Respiratory: symmetric chest movement Auscultation: lungs clear to auscultation bilaterally Cardiovascular: RRR, no murmur, no edema Gastrointestinal (Abdomen): normal bowel sounds, soft, nontender, no hepatosplenomegaly Musculoskeletal: no cyanosis or clubbing, extremities motor strength 5/5 Skin: no rashes, warm and dry Neurologic: + obtunded Psychiatric: Orientation: + not alert Lymphatic: no cervical or axillary lymphadenopathy Results & Data Results & Data ([facility]) Vital Signs (Past 12 Hours) Vital Signs Temp Pulse Resp BP Pulse Ox 08/19/20 15:47 81 22 90 08/19/20 10:52 86 26 H 91 08/19/20 09:35 20 08/19/20 08:00 86 08/19/20 07:55 91 H 26 H 90 08/19/20 06:00 37.5 C 88 20 119/65 91 08/19/20 05:30 37.5 C 80 20 136/78 92 08/19/20 05:00 37.5 C 86 20 133/64 90 08/19/20 04:30 37.6 C H 91 H 20 118/65 93 08/19/20 04:00 37.6 C H 85 20 124/68 92 Laboratory Results Laboratory Results - last 24 hr 08/18/20 08/19/20 08/19/20 21:15 04:29 04:29 WBC 14.82 H RBC 3.81 L Hgb 13.5 L POC Hgb Hct 41.0 L POC Hct MCV 107.6 H MCH 35.4 H MCHC 32.9 RDW Std Deviation 59.3 H RDW Coeff of Richard 15.3 H Plt Count 293 MPV 10.9 H Immature Gran % (Auto) 0.5 Neut % (Auto) 77.9 Lymph % (Auto) 13.1 [place] % (Auto) 7.8 Eos % (Auto) 0.6 Baso % (Auto) 0.1 Neut # (Auto) 11.53 H Lymph # (Auto) 1.94 [place] # (Auto) 1.16 H Eos # (Auto) 0.09 Baso # (Auto) 0.02 Immature Gran # (Auto) 0.08 H Sample Site POC pH POC pCO2 POC pO2 POC HCO3 POC Total CO2 POC Base Excess ABG pH (Temp Correct) ABG pCO2 (Temp Corrct POC ABG pO2 at Pt Temp POC ABG O2 Sat John Test O2 Delivery Device POC O2 Rate Minute Ventilation POC FiO2 Tidal Volume PEEP POC Sodium Sodium 139 137 POC Potassium Potassium 4.0 3.6 Chloride 104 102 Carbon Dioxide 28 30 Anion Gap 6.0 5.0 BUN 31 H 31 H Creatinine 1.15 D 1.11 Est Cr Clr Drug Dosing 57.3 59.4 Est GFR ( Amer) 70.7 73.8 Est GFR (Non-Af Amer) 61.0 63.7 BUN/Creatinine Ratio 27.1 H 28.4 H Glucose 106 H 107 H Calcium 8.4 L 7.9 L Phosphorus 2.7 2.8 Magnesium 2.3 2.4 Total Bilirubin 1.7 H AST 20 ALT 23 Alkaline Phosphatase 63 Total Protein 6.1 L Albumin 2.3 L Globulin 3.8 Albumin/Globulin Ratio 0.6 L 08/19/20 05:37 WBC RBC Hgb POC Hgb 13.6 L Hct POC Hct 40 L MCV MCH MCHC RDW Std Deviation RDW Coeff of Richard Plt Count MPV Immature Gran % (Auto) Neut % (Auto) Lymph % (Auto) [place] % (Auto) Eos % (Auto) Baso % (Auto) Neut # (Auto) Lymph # (Auto) [place] # (Auto) Eos # (Auto) Baso # (Auto) Immature Gran # (Auto) Sample Site L Radial POC pH 7.38 POC pCO2 45 POC pO2 57 L POC HCO3 27 H POC Total CO2 28 POC Base Excess 2.0 H ABG pH (Temp Correct) 7.376 ABG pCO2 (Temp Corrct 46 POC ABG pO2 at Pt Temp 59 POC ABG O2 Sat 89.0 L John Test Pass O2 Delivery Device Ventilator POC O2 Rate 20 Minute Ventilation 9.0 POC FiO2 50 Tidal Volume 450 PEEP 10 POC Sodium 136 Sodium POC Potassium 3.5 Potassium Chloride Carbon Dioxide Anion Gap BUN Creatinine Est Cr Clr Drug Dosing Est GFR ( Amer) Est GFR (Non-Af Amer) BUN/Creatinine Ratio Glucose Calcium Phosphorus Magnesium Total Bilirubin AST ALT Alkaline Phosphatase Total Protein Albumin Globulin Albumin/Globulin Ratio Medications Administered Current Inpatient Medications Acetaminophen (Acetaminophen 325 Mg Tab) 650 mg PO Q4H PRN PRN Reason: Fever Stop: 09/17/20 23:26 Last Admin: 08/18/20 23:59 Dose: 650 mg Documented by: Aspirin (Aspirin 81 Mg Chew) 81 mg GT QAM [facility] Stop: 09/16/20 08:59 Last Admin: 08/19/20 11:53 Dose: 81 mg Documented by: Fentanyl Citrate (Fentanyl Bolus From Bag) 50 mcg IV Q60M PRN PRN Reason: Pain or Agitation Stop: 08/29/20 10:13 Last Admin: 08/15/20 18:27 Dose: 50 mcg Documented by: Heparin Sodium (Beef Lung) (Heparin 10 Unit/Ml 5 Ml Flush) 5 ml FLUSH PRN PRN PRN Reason: Flush Stop: 09/15/20 22:39 Hydroxychloroquine Sulfate (Hydroxychloroquine Sulfate 200 Mg Tab) [facility] [place] Stop: 09/01/20 08:59 Last Admin: 08/03/20 08:31 Dose: 200 mg Documented by: Fentanyl Citrate (Fentanyl Drip) 1,250 mcg in 250 mls @ 30 mls/hr IV .[id number] [facility]; Protocol Stop: 08/29/20 10:14 Last Titration: 08/19/20 12:52 Dose: 150 mcg/hr, 30 mls/hr Documented by: Pantoprazole Sodium 40 mg/ (Syringe) 10 mls @ 5 mls/min IV DAILY [facility] Stop: 09/12/20 20:59 Last Admin: 08/19/20 11:53 Dose: 5 mls/min Documented by: Midazolam HCl (Versed) 125 mg in 250 mls @ 4 mls/hr IV .[id number] PRN; Protocol PRN Reason: titration Stop: 09/18/20 09:59 Last Titration: 08/19/20 12:52 Dose: 2 mg/hr, 4 mls/hr Documented by: Heparin Sodium/Dextrose (Heparin Sodium/Dextrose) 25,000 units in 500 mls @ 29 mls/hr IV .[id number] [facility]; Protocol Stop: 09/19/20 00:00 Levothyroxine Sodium (Levothyroxine Sodium 125 Mcg Tablet) [facility]: 09/01/20 06:29 Last Admin: 08/19/20 04:18 Dose: 125 mcg Documented by: Metoprolol Tartrate (Metoprolol Tartrate 25 Mg Tab) 12.5 mg PO TID MARGI Stop: 09/18/20 08:59 Last Admin: 08/19/20 15:51 Dose: 12.5 mg Documented by: Midazolam HCl (Midazolam Bolus From Bag) 2 mg IV Q60M PRN PRN Reason: Sedation Stop: 09/18/20 09:52 Nutritional Formula (Peptamen Intense Vhp 1.0 Jet 1,000 Ml Bag) 1,000 ml OG .CONTINUOUS MARGI; Protocol Stop: 09/15/20 11:29 Last Admin: 08/16/20 13:05 Dose: 1,000 ml Documented by: PG Care Time/CCT Total # of Minutes Spent Total Time Spent with Patient: Total time spent is greater than 50% in coordination of care (as documented) at patient's floor/unit and/or counseling patient: Coding Level of Care Code 81174 Subseq Hosp Care Lvl 1 Diagnoses Acute respiratory failure with hypoxia J96.01 Pneumonia due to COVID-19 virus U07.1; J12.89 Polycythemia vera D45 Hypothyroidism E03.9 Hypertension I10 CKD (chronic kidney disease) N18.9 Melena K92.1 BPH (benign prostatic hyperplasia) N40.0 DVT prophylaxis Z29.9
[2020-08-20] MEDS ORDERED: HEPARIN SODIUM/DEXTROSE 25,000 UNITS/500 ML BAG IV SCH (00:01)
[2020-08-20 00:10] LABS: Partial Thromboplastin Ratio 1.4; Partial Thromboplastin Time 40.1 Seconds (21.0-31.0)
[2020-08-20] MEDS: fentaNYL DRIP 1,250 MCG/250 ML BAG IV SCH ×2 (04:37→12:31)
[2020-08-20 05:05] LABS: Hematocrit (blood only) 37.5 % (42-52); Hemoglobin 12.3 g/dL (14.0-18.0); Mean Corpuscular Hemoglobin 35.5 pg (25-34); Mean Corpuscular Hgb Conc 32.8 g/dL (32-36); Mean Corpuscular Volume 108.4 fL (80-100); Platelet Count 204 K/uL (130-400); RDW Coefficient of Variation 15.1 % (11.5-14.5); RDW Standard Deviation 59.7 fL (36.4-46.3); Red Blood Count 3.46 M/uL (4.7-6.1); White Blood Count 10.88 K/uL (4.8-10.8)
[2020-08-20 05:11] LABS: iSTAT Allen Test Pass; iSTAT Art Bld Gas pCO2 Correct 58 mmHg (35-46); iSTAT Art Bld Gas pH Corrected 7.322 (7.35-7.45); iSTAT Arterial Blood Gas HCO3 30 meg/L (19-24); iSTAT Arterial Blood Gas pCO2 55 mmHg (35-46); iSTAT Arterial Blood Gas pH 7.34 (7.35-7.45); iSTAT Arterial Blood Gas pO2 59 mmHg (80-95); iSTAT Arterial Blood Gas pO2 C 63; iSTAT Carbon Dioxide 31 mmol/L (24-31); iSTAT FiO2 40 %; iSTAT Hematocrit 37 % (42-52); iSTAT Hemoglobin 12.6 g/dl (14.0-18.0); iSTAT Potassium 4.3 mmol/L (3.3-5.0); iSTAT Site R Radial; iSTAT Sodium 137 mmol/L (135-144)
[2020-08-20] MEDS: LEVOTHYROXINE SODIUM 125 MCG TABLET PO SCH (05:30)
[2020-08-20 05:48] LABS: BUN Creatinine Ratio 35.9 (10-20); Calcium 8.2 mg/dl (8.5-10.1); Creatinine Clr Calc Pharmacy 73.2 ml/min; Est GFR (African American) 95.1; Est GFR (Non-African American) 82.1; Magnesium 2.5 mg/dl (1.8-2.4); Phosphorus 2.5 mg/dl (2.5-4.9); Potassium 4.2 mmol/L (3.5-5.1)
[2020-08-20 05:54] LABS: Basophils # (auto) 0.01 K/uL (0-0.2); Basophils % (auto) 0.1 %; Eosinophils # (auto) 0.09 K/uL (0-0.5); Eosinophils % (auto) 0.8 %; Immature Granulocytes # (auto) 0.07 K/uL (0.00-0.02); Immature Granulocytes % (auto) 0.6 %; Lymphocytes # (auto) 1.57 K/uL (1.2-3.4); Lymphocytes % (auto) 14.4 %; Monocytes # (auto) 0.66 K/uL (0.11-0.59); Monocytes % (auto) 6.1 %; Neutrophils # (auto) 8.48 K/uL (1.4-6.5)
[2020-08-20 07:40] LABS: Partial Thromboplastin Ratio 1.9
[2020-08-20 07:44] LABS: Partial Thromboplastin Time 53.6 Seconds (21.0-31.0)
[2020-08-20] MEDS: PANTOprazole 40 MG in SYRINGE 0 ML IV SCH (08:26)
[2020-08-20] MEDS: METOPROLOL TARTRATE 25 MG TAB PO SCH ×3 (08:26→21:53)
[2020-08-20] MEDS: ASPIRIN 81 MG CHEW GT SCH (08:26)
[2020-08-20] MEDS: MIDAZOLAM HCL 125 MG/250 ML BAG IV PRN (09:16)
--- NOTE | 2020-08-20 11:18 | Critical Care Progress Note ---
Date of Service August 20, 2020 Assessment & Plan (1) Acute respiratory failure with hypoxia: Neurologic: Toxic metabolic encephalopathy -Sedation vacation while supine -Previously on a course of neuromuscular blockade as well as steroids Pulmonary: Acute hypoxic respiratory failure: Severe hypoxic respiratory failure -Outside of 2-week window for [facility] protocol -High PEEP low FiO2 table: PEEP of 14 FiO2 40%, compliance as well as driving pressure and plateaus were largely unchanged from supine position yesterday and prone position this morning -We will repeat plateaus and compliance later today if no significant change I do not believe he is responding to pronation therapy. Cardiovascular: Paroxysmal atrial fibrillation with rapid ventricular response -Obtain echo given new onset A. fib -Echo can wait until patient is recovered adequately from COVID-19 to minimize staff exposure given pandemic situations -Given that he is normal sinus rhythm and significant comorbidities I believe the risk of stroke is much less than risk of iatrogenic bleeding and therefore will transition to DVT prophylaxis from full anticoagulation. Gastrointestinal: Continue Protonix daily. -N.p.o. while prone -We will bolus feeds during supine time: Discussed with nutrition Renal: Lovenox: COVID-19 dosing Infectious disease: Continue monitoring fever curve cultures negative to date. Hematologic: He has a history of polycythemia vera. Continue Lovenox 40 mg twice daily: COVID-19 dosing. Endocrine: Insulin protocol per ICU. Continue levothyroxine. Lines and tubes: Peripheral IVs, right IJ and right radial line in place. VTE prophylaxis: 40 mg Lovenox twice daily CODE STATUS: Full code. Family at bedside: None available due to the COVID-19 pandemic Disposition: His prognosis is extremely poor. He is to remain in the ICU. (2) Palliative care encounter: (3) Acute respiratory failure with hypoxemia: (4) Pneumonia due to COVID-19 virus: (5) Shock: Admission and Anticipated Discharge Date Admission Date: August 01, 2020 Supervising Physician Co-Signing Physician Notes I was present and assisted with the pronating process. Patient tolerated the pronating movement. Patient was discussed in multidisciplinary rounds. I have personally spent 60 minutes of critical care time in the direct management of this patient. This is a life/limb threatening event. This includes time spent evaluating patient, direct bedside care, chart review, placing orders, interpretation of diagnostic studies, discussion with consultants, patient, and/or family members regarding treatment decisions, as well as other required patient management activities. This time is exclusive of all separately billable procedures, and teaching time and separate from and in addition to any other critical care service time. Subjective Patient heavily sedated, -3 -4 RASS no overnight events. Review of Systems Review of Systems: Unobtainable due to reduced consciousness Physical Exam Physical Exam: General: Sedated Glascow Coma Scale: Eyes: 2, Verbal 1T, Motor 5, Total 8T nontoxic. Skin: Warm, dry, Head: Atraumatic Ears, nose, mouth and throat: Obscured by endotracheal tube Cardiovascular: Normal peripheral perfusion Respiratory: Ventilator settings reviewed Gastrointestinal: Non distended, no involuntary guarding Musculoskeletal: No deformity Results & Data Results & Data ([facility]) Vital Signs (Past 12 Hours) Vital Signs Temp Pulse Resp BP Pulse Ox 08/20/20 08:38 112 H 24 94 08/20/20 08:00 112 H 08/20/20 06:04 37.8 C H 112 H 127/70 90 08/20/20 06:00 37.8 C H 107 H 91 08/20/20 05:49 37.8 C H 107 H 145/62 H 90 08/20/20 05:34 37.8 C H 112 H 162/64 H 91 08/20/20 05:19 37.9 C H 108 H 155/75 H 91 08/20/20 05:04 37.9 C H 110 H 158/67 H 91 08/20/20 05:00 37.9 C H 107 H 93 08/20/20 04:49 37.9 C H 93 H 160/65 H 89 L 08/20/20 04:36 105 H 24 94 08/20/20 04:34 37.8 C H 99 H 112/64 93 08/20/20 04:19 37.8 C H 96 H 143/60 H 92 08/20/20 04:04 37.8 C H 103 H 134/70 93 08/20/20 04:00 37.8 C H 104 H 93 08/20/20 03:49 37.8 C H 96 H 133/70 93 08/20/20 03:34 37.8 C H 102 H 121/69 92 08/20/20 03:19 37.8 C H 101 H 117/75 93 08/20/20 03:04 37.8 C H 95 H 129/72 93 08/20/20 03:00 37.8 C H 92 H 93 08/20/20 02:49 37.7 C H 97 H 123/71 93 08/20/20 02:34 37.7 C H 92 H 115/60 93 08/20/20 02:19 37.7 C H 100 H 133/71 94 08/20/20 02:04 37.7 C H 101 H 135/62 93 08/20/20 02:00 37.7 C H 97 H 93 08/20/20 01:49 37.7 C H 90 126/69 93 08/20/20 01:35 96 H 24 93 08/20/20 01:34 37.8 C H 93 H 117/70 92 08/20/20 01:19 37.8 C H 95 H 119/67 92 08/20/20 01:03 37.8 C H 99 H 124/71 91 08/20/20 01:00 37.8 C H 94 H 91 08/20/20 00:49 37.8 C H 92 H 123/69 91 08/20/20 00:33 37.8 C H 97 H 129/67 90 08/20/20 00:18 37.8 C H 97 H 119/68 91 08/20/20 00:03 37.8 C H 97 H 133/69 91 08/20/20 00:00 37.8 C H 95 H 91 08/19/20 23:49 37.8 C H 95 H 137/70 91 08/19/20 23:33 37.8 C H 88 150/69 H 90 08/19/20 23:18 37.8 C H 85 127/60 94 08/19/20 23:10 91 H 23 93 Laboratory Results 08/20/20 08/20/20 08/20/20 Range/Units 06:42 04:57 04:43 WBC (4.8-10.8) K/uL RBC (4.7-6.1) M/uL Hgb (14.0-18.0) g/dL POC Hgb 12.6 L (14.0-18.0) g/dl Hct (42-52) % POC Hct 37 L (42-52) % MCV (80-100) fL MCH (25-34) pg MCHC (32-36) g/dL RDW Std Deviation (36.4-46.3) fL RDW Coeff of Richard (11.5-14.5) % Plt Count (130-400) K/uL MPV (7.4-10.4) fL Immature Gran % (Auto) % Neut % (Auto) % Lymph % (Auto) % [place] % (Auto) % Eos % (Auto) % Baso % (Auto) % Neut # (Auto) (1.4-6.5) K/uL Lymph # (Auto) (1.2-3.4) K/uL [place] # (Auto) (0.11-0.59) K/uL Eos # (Auto) (0-0.5) K/uL Baso # (Auto) (0-0.2) K/uL Immature Gran # (Auto) (0.00-0.02) K/uL APTT 53.6 H* (21.0-31.0) Seconds PTT Ratio 1.9 Sample Site R Radial POC pH 7.34 L (7.35-7.45) POC pCO2 55 H (35-46) mmHg POC pO2 59 L (80-95) mmHg POC HCO3 30 H (19-24) [place]/L POC Total CO2 31 (24-31) mmol/L POC Base Excess 4.0 H (-9-1.8) [place]/L ABG pH (Temp Correct) 7.322 L (7.35-7.45) ABG pCO2 (Temp Corrct 58 H (35-46) mmHg POC ABG pO2 at Pt Temp 63 POC ABG O2 Sat 88.0 L (90-95) % John Test Pass O2 Delivery Device Ventilator POC O2 Rate 20 Minute Ventilation 9.1 POC FiO2 40 % Tidal Volume 450 PEEP 14 POC Sodium 137 (135-144) mmol/L Sodium 137 (136-145) mmol/L POC Potassium 4.3 (3.3-5.0) mmol/L Potassium 4.2 D (3.5-5.1) mmol/L Chloride 104 (98-107) mmol/L Carbon Dioxide 32 (21-32) mmol/L Anion Gap 1.0 L (3-11) BUN 32 H (7-18) mg/dl Creatinine 0.90 (0.6-1.4) mg/dl Est Cr Clr Drug Dosing 73.2 ml/min Est GFR ( Amer) 95.1 Est GFR (Non-Af Amer) 82.1 BUN/Creatinine Ratio 35.9 H (10-20) Glucose 94 (70-99) mg/dl Calcium 8.2 L (8.5-10.1) mg/dl Phosphorus 2.5 (2.5-4.9) mg/dl Magnesium 2.5 H (1.8-2.4) mg/dl 08/20/20 08/19/20 Range/Units 04:43 23:32 WBC 10.88 H (4.8-10.8) K/uL RBC 3.46 L (4.7-6.1) M/uL Hgb 12.3 L (14.0-18.0) g/dL POC Hgb (14.0-18.0) g/dl Hct 37.5 L (42-52) % POC Hct (42-52) % MCV 108.4 H (80-100) fL MCH 35.5 H (25-34) pg MCHC 32.8 (32-36) g/dL RDW Std Deviation 59.7 H (36.4-46.3) fL RDW Coeff of Richard 15.1 H (11.5-14.5) % Plt Count 204 (130-400) K/uL MPV 11.0 H (7.4-10.4) fL Immature Gran % (Auto) 0.6 % Neut % (Auto) 78.0 % Lymph % (Auto) 14.4 % [place] % (Auto) 6.1 % Eos % (Auto) 0.8 % Baso % (Auto) 0.1 % Neut # (Auto) 8.48 H (1.4-6.5) K/uL Lymph # (Auto) 1.57 (1.2-3.4) K/uL [place] # (Auto) 0.66 H (0.11-0.59) K/uL Eos # (Auto) 0.09 (0-0.5) K/uL Baso # (Auto) 0.01 (0-0.2) K/uL Immature Gran # (Auto) 0.07 H (0.00-0.02) K/uL APTT 40.1 H (21.0-31.0) Seconds PTT Ratio 1.4 Sample Site POC pH (7.35-7.45) POC pCO2 (35-46) mmHg POC pO2 (80-95) mmHg POC HCO3 (19-24) [place]/L POC Total CO2 (24-31) mmol/L POC Base Excess (-9-1.8) [place]/L ABG pH (Temp Correct) (7.35-7.45) ABG pCO2 (Temp Corrct (35-46) mmHg POC ABG pO2 at Pt Temp POC ABG O2 Sat (90-95) % John Test O2 Delivery Device POC O2 Rate Minute Ventilation POC FiO2 % Tidal Volume PEEP POC Sodium (135-144) mmol/L Sodium (136-145) mmol/L POC Potassium (3.3-5.0) mmol/L Potassium (3.5-5.1) mmol/L Chloride (98-107) mmol/L Carbon Dioxide (21-32) mmol/L Anion Gap (3-11) BUN (7-18) mg/dl Creatinine (0.6-1.4) mg/dl Est Cr Clr Drug Dosing ml/min Est GFR ( Amer) Est GFR (Non-Af Amer) BUN/Creatinine Ratio (10-20) Glucose (70-99) mg/dl Calcium (8.5-10.1) mg/dl Phosphorus (2.5-4.9) mg/dl Magnesium (1.8-2.4) mg/dl Diagnostic Findings Coding Level of Care Code Critical Care 1st 30-74 mins Diagnoses Acute respiratory failure with hypoxia J96.01 Palliative care encounter Z51.5 Acute respiratory failure with hypoxemia J96.01 Pneumonia due to COVID-19 virus U07.1; J12.89 Shock R57.9 Time Spent (min) 60
[2020-08-20] MEDS ORDERED: ENOXAPARIN INJ 40 MG/0.4 ML SYR SQ ONE (11:30)
[2020-08-20] MEDS: NOVASOURCE RENAL 2.0 CAL 1000ML BAG NG SCH ×2 (11:35→22:40)
--- NOTE | 2020-08-20 12:42 | Communication Note ---
Date of Service: August 20, 2020 I was notified of repeated phone calls by son Jefry who is specifically requesting to speak with physician. I had updated nursing staff the patient sta tus and have been unable to personally call family given pandemic status and acuity of service until this afternoon. It has been confirmed that the power of electric shovel operator is Shaye and this has been documented in the patient's chart. I updated her regarding the patient's condition which has largely remained unchanged. He does not appear to be responding to pronation therapy and has had convalescent plasma as well as steroids. Regarding possible outcomes Shaye states that she would need to meet with her brothers regarding this and there is a pre-existing meeting on which we will be able to discuss the events with the entire family. At this point we will continue the current treatments. I anticipate in the best case scenario the patient will not have the functional status he wants had and at worst could be a pulmonary cripple requiring oxygen or even long-term mechanical ventilation which Shaye reports is against her father's wishes. This discussion was approximately 15 minutes and occurred because the patient is not able to participate in his care. Coding Level of Care Code Critical Care avelina cuadrat'l 30 min
[2020-08-20] MEDS ORDERED: PROSOURCE NO CARB 30 ML/PKT NG SCH (14:00)
--- NOTE | 2020-08-20 14:40 | Palliative Care Progress Note ---
Date of Service August 20, 2020 Assessment & Plan (1) Palliative care encounter: I had a lengthy conversation with Dr. Vázquez regarding Jefry's current condition. There ultimately have not been much of a change from yesterday and no overtly acute events occured today or overnight. I reached out to Shaye to provide an update and also see if she was able to contact her brothers regarding having a family meeting. Shaye plans to travel to [place] on morning, arriving around lunchtime. Her brother Demian would like to be conferenced in by phone. Bimal will not be able to join as he has to work. Shaye asked if I could reach out to her brother Demian to provide an update. Set expectation that we would like to have one main point person for contact, but agreed to give an update to Demian today. I did call [phone] twice. He had an automated voicemail box, which I left a non detailed messaged to call Palliative Care back. I cleared visitation for Shaye with florist manager Cynthia Paz. We will follow on regarding goals of care moving forward with this family. (2) Pneumonia due to COVID-19 virus: Admission and Anticipated Discharge Date Admission Date: August 01, 2020 Subjective Patient was proned yesterday, supine today sedation vacation as tolerated discussed in detail with Dr. Vázquez. See A/P for further details Review of Systems Review of Systems: Palliative Performance Score 20% Physical Exam Physical Exam: Deferred due to COVID-19. Discussed with the Hospitalist Results & Data ([facility]) Vital Signs (Past 12 Hours) Vital Signs Temp Pulse Resp BP Pulse Ox 08/20/20 11:19 112 H 24 94 08/20/20 08:38 112 H 24 94 08/20/20 08:00 112 H 08/20/20 06:04 37.8 C H 112 H 127/70 90 08/20/20 06:00 37.8 C H 107 H 91 08/20/20 05:49 37.8 C H 107 H 145/62 H 90 08/20/20 05:34 37.8 C H 112 H 162/64 H 91 08/20/20 05:19 37.9 C H 108 H 155/75 H 91 08/20/20 05:04 37.9 C H 110 H 158/67 H 91 08/20/20 05:00 37.9 C H 107 H 93 08/20/20 04:49 37.9 C H 93 H 160/65 H 89 L 08/20/20 04:36 105 H 24 94 08/20/20 04:34 37.8 C H 99 H 112/64 93 08/20/20 04:19 37.8 C H 96 H 143/60 H 92 08/20/20 04:04 37.8 C H 103 H 134/70 93 08/20/20 04:00 37.8 C H 104 H 93 08/20/20 03:49 37.8 C H 96 H 133/70 93 08/20/20 03:34 37.8 C H 102 H 121/69 92 08/20/20 03:19 37.8 C H 101 H 117/75 93 08/20/20 03:04 37.8 C H 95 H 129/72 93 08/20/20 03:00 37.8 C H 92 H 93 08/20/20 02:49 37.7 C H 97 H 123/71 93 PG Care Time/CCT Total # of Minutes Spent Total Time Spent with Patient: Total time spent is greater than 50% in coordination of care (as documented) at patient's floor/unit and/or counseling p atient: 35 Coding Level of Care Code 37981 Subseq Hosp Care Lvl 3 Diagnoses Palliative care encounter Z51.5 Pneumonia due to COVID-19 virus U07.1; J12.89 Time Spent (min) 35 Time Spent Midlevel Total time spent 35 minutes with > 50% of that time spent assessing the patient, discussing goals of care with two family members and collaborating with IDT
[2020-08-20] MEDS ORDERED: MINERAL OIL 30 ML UDC PO ONE (17:45)
[2020-08-20] MEDS: PEPTAMEN INTENSE VHP 1.0 CAL 1,000 ML BAG OG SCH (18:39)
[2020-08-20] MEDS: ENOXAPARIN INJ 40 MG/0.4 ML SYR SQ SCH (21:54)
--- NOTE | 2020-08-20 22:02 | Hospitalist Progress Note ---
Date of Service August 20, 2020 Assessment & Plan (1) Acute respiratory failure with hypoxia: Pt was intubated 08/15/20 with inability to sustain hypoxia with highflow 60 liters and 15l oxymask on top of it CXR with worsening b/l pneumonia / developing ARDS, added antibiotics for concern for secondary infection Gram negative after decompensaiton and progression of cxr changes did have increased leukocytosis and mild procal will be placed on empiric vancomycin and cefepime, vancomycin stopped pulmonary med intermittently has ventilate prone, currently weaning pressors and sedation 2nd to COVID-19 pneumonia. On 08/07 he was placed on empiric anticoagulation for that purpose, did not have objective improvement to suggest worsening was from clot burden pulmonary evaluation 08/13 with continued supportive care IV decadron 6mg daily, stopped by pulmonary critical care s/p plasma on 08/02/20. Remdesivir - completed 10 d course Formal palliative care consult requested to refine goals of care, wishes for intubation/ventilation, etc. Patient ok with intubation/mech ventilation but would not want such for prolongued, will continue to keep family engaged markos Lind [phone] daughter, spokes person (2) Pneumonia due to COVID-19 virus: see "resp failure" above. decline requiring intubation 08/15/20 therapeutic anticoagulation with lovenox begun on 08/07/20-> epistaxis, stopped 08/13, return to 40 mg sc daily extended remdesivir course to 10 days, LD was 08/13/20 (3) Polycythemia vera: Continue hydroxyurea. H/H and platelets are acceptable. PCV increases risk of VTE - full anticoagulation started 08/07 given worsening hypoxia. (4) Hypothyroidism: Continue levothyroxine 125 mcg daily last TSH was 02/2020 and was high (5) Hypertension: Blood pressures have been lower holding antihypertensive medicaitons and now requring pressors (6) CKD (chronic kidney disease): stage 3, now mild worseing with taylor CrCl is 70's (7) Melena: concern for such earlier this stay. however, stool was heme negative. H/H stable/acceptable. cont PPI bid (8) BPH (benign prostatic hyperplasia): previously on finasteride now has gay cath (9) DVT prophylaxis: lovenox 40mg daily prognosis remains guarded/poor Admission and Anticipated Discharge Date Admission Date: August 01, 2020 Subjective patient intubated, sedated, management per ICU Review of Systems Review of Systems: Unobtainable due to endotracheal tube Physical Exam Constitutional: well developed, + ill appearing and + mechanically ventilated (prone) Neck: trachea midline, no thyromegaly Respiratory: symmetric chest movement; no respiratory distress Auscultation: lungs clear to auscultation bilaterally; no crackles, no rales, no rhonchi and no wheezes Cardiovascular: RRR, no murmur, no edema Gastrointestinal (Abdomen): normal bowel sounds, soft, nontender, no hepatosplenomegaly Musculoskeletal: no cyanosis or clubbing, extremities motor strength 5/5 Skin: no rashes, warm and dry Neurologic: patellar DTR's 2+ bilat, sensation intact and PERRL, EOMI, accommodation nl, no face palsy, no dysarthria + obtunded Psychiatric: Orientation: + not alert Lymphatic: no cervical or axillary lymphadenopathy Results & Data Results & Data ([facility]) Vital Signs (Past 12 Hours) Vital Signs Temp Pulse Resp BP Pulse Ox 08/20/20 20:48 102 H 26 H 96 08/20/20 18:20 37.6 C H 113 H 120/71 98 08/20/20 18:05 37.7 C H 116 H 121/68 99 08/20/20 18:00 37.6 C H 113 H 98 08/20/20 17:50 37.7 C H 114 H 117/54 L 99 08/20/20 17:35 37.7 C H 115 H 118/66 98 08/20/20 17:20 37.7 C H 117 H 128/105 H 98 08/20/20 17:05 37.7 C H 126 H 107/69 98 08/20/20 17:00 37.7 C H 116 H 97 08/20/20 16:50 37.7 C H 116 H 114/71 97 08/20/20 16:35 37.8 C H 120 H 131/80 96 08/20/20 16:20 37.8 C H 118 H 111/63 95 08/20/20 16:05 37.9 C H 149 H 110/67 95 08/20/20 16:00 37.9 C H 159 H 95 08/20/20 15:50 37.9 C H 158 H 113/67 95 08/20/20 15:35 37.9 C H 153 H 128/73 94 08/20/20 15:23 152 H 29 H 90 08/20/20 15:20 37.9 C H 151 H 145/98 H 93 08/20/20 15:05 37.9 C H 170 H 140/102 H 91 08/20/20 15:00 37.9 C H 143 H 90 08/20/20 14:50 37.8 C H 144 H 135/104 H 85 L 08/20/20 14:35 37.8 C H 136 H 176/89 H 85 L 08/20/20 14:20 37.7 C H 142 H 168/105 H 88 L 08/20/20 14:06 37.8 C H 153 H 150/104 H 92 08/20/20 14:00 37.8 C H 145 H 93 08/20/20 13:50 37.8 C H 157 H 144/68 H 93 08/20/20 13:34 37.8 C H 97 H 123/63 93 08/20/20 13:20 37.7 C H 96 H 125/58 L 92 08/20/20 13:04 37.7 C H 91 H 116/60 93 08/20/20 13:00 37.7 C H 90 93 08/20/20 12:49 37.7 C H 87 113/58 L 93 08/20/20 12:34 37.7 C H 95 H 101/63 94 08/20/20 12:19 37.7 C H 94 H 111/58 L 94 08/20/20 12:04 37.7 C H 94 H 104/57 L 94 08/20/20 12:00 37.7 C H 96 H 95 08/20/20 11:49 37.7 C H 91 H 102/59 L 94 08/20/20 11:34 37.7 C H 96 H 107/55 L 95 08/20/20 11:19 37.7 C H 94 H 24 106/52 L 95 08/20/20 11:04 37.7 C H 97 H 93/55 L 95 08/20/20 11:00 37.7 C H 99 H 95 08/20/20 10:49 37.7 C H 96 H 91/59 L 95 08/20/20 10:34 37.7 C H 97 H 101/56 L 95 08/20/20 10:19 37.6 C H 100 H 99/59 L 95 08/20/20 10:04 37.6 C H 97 H 99/60 L 95 Laboratory Results Laboratory Results - last 24 hr 08/19/20 08/20/20 08/20/20 23:32 04:43 04:43 WBC 10.88 H RBC 3.46 L Hgb 12.3 L POC Hgb Hct 37.5 L POC Hct MCV 108.4 H MCH 35.5 H MCHC 32.8 RDW Std Deviation 59.7 H RDW Coeff of Richard 15.1 H Plt Count 204 MPV 11.0 H Immature Gran % (Auto) 0.6 Neut % (Auto) 78.0 Lymph % (Auto) 14.4 [place] % (Auto) 6.1 Eos % (Auto) 0.8 Baso % (Auto) 0.1 Neut # (Auto) 8.48 H Lymph # (Auto) 1.57 [place] # (Auto) 0.66 H Eos # (Auto) 0.09 Baso # (Auto) 0.01 Immature Gran # (Auto) 0.07 H APTT 40.1 H PTT Ratio 1.4 Sample Site POC pH POC pCO2 POC pO2 POC HCO3 POC Total CO2 POC Base Excess ABG pH (Temp Correct) ABG pCO2 (Temp Corrct POC ABG pO2 at Pt Temp POC ABG O2 Sat John Test O2 Delivery Device POC O2 Rate Minute Ventilation POC FiO2 Tidal Volume PEEP POC Sodium Sodium 137 POC Potassium Potassium 4.2 D Chloride 104 Carbon Dioxide 32 Anion Gap 1.0 L BUN 32 H Creatinine 0.90 Est Cr Clr Drug Dosing 73.2 Est GFR ( Amer) 95.1 Est GFR (Non-Af Amer) 82.1 BUN/Creatinine Ratio 35.9 H Glucose 94 POC Glucose Calcium 8.2 L Phosphorus 2.5 Magnesium 2.5 H 08/20/20 08/20/20 08/20/20 04:57 06:42 11:39 WBC RBC Hgb POC Hgb 12.6 L Hct POC Hct 37 L MCV MCH MCHC RDW Std Deviation RDW Coeff of Richard Plt Count MPV Immature Gran % (Auto) Neut % (Auto) Lymph % (Auto) [place] % (Auto) Eos % (Auto) Baso % (Auto) Neut # (Auto) Lymph # (Auto) [place] # (Auto) Eos # (Auto) Baso # (Auto) Immature Gran # (Auto) APTT 53.6 H* PTT Ratio 1.9 Sample Site R Radial POC pH 7.34 L POC pCO2 55 H POC pO2 59 L POC HCO3 30 H POC Total CO2 31 POC Base Excess 4.0 H ABG pH (Temp Correct) 7.322 L ABG pCO2 (Temp Corrct 58 H POC ABG pO2 at Pt Temp 63 POC ABG O2 Sat 88.0 L John Test Pass O2 Delivery Device Ventilator POC O2 Rate 20 Minute Ventilation 9.1 POC FiO2 40 Tidal Volume 450 PEEP 14 POC Sodium 137 Sodium POC Potassium 4.3 Potassium Chloride Carbon Dioxide Anion Gap BUN Creatinine Est Cr Clr Drug Dosing Est GFR ( Amer) Est GFR (Non-Af Amer) BUN/Creatinine Ratio Glucose POC Glucose 122 H Calcium Phosphorus Magnesium Medications Administered Current Inpatient Medications Acetaminophen (Acetaminophen 325 Mg Tab) 650 mg PO Q4H PRN PRN Reason: Fever Stop: 09/17/20 23:26 Last Admin: 08/18/20 23:59 Dose: 650 mg Documented by: Aspirin (Aspirin 81 Mg Chew) 81 mg GT QAM [facility] Stop: 09/16/20 08:59 Last Admin: 08/20/20 08:26 Dose: 81 mg Documented by: Enoxaparin Sodium (Enoxaparin Inj 40 Mg/0.4 Ml Syr) 40 mg SQ BID MARGI Stop: 09/19/20 20:59 Last Admin: 08/20/20 21:54 Dose: 40 mg Documented by: Fentanyl Citrate (Fentanyl Bolus From Bag) 50 mcg IV Q60M PRN PRN Reason: Pain or Agitation Stop: 08/29/20 10:13 Last Admin: 08/15/20 18:27 Dose: 50 mcg Documented by: Heparin Sodium (Beef Lung) (Heparin 10 Unit/Ml 5 Ml Flush) 5 ml FLUSH PRN PRN PRN Reason: Flush Stop: 09/15/20 22:39 Hydroxychloroquine Sulfate (Hydroxychloroquine Sulfate 200 Mg Tab) 200 mg PO QAM MARGI Stop: 09/01/20 08:59 Last Admin: 08/03/20 08:31 Dose: 200 mg Documented by: Fentanyl Citrate (Fentanyl Drip) 1,250 mcg in 250 mls @ 20 mls/hr IV .[id number] [facility]; Protocol Stop: 08/29/20 10:14 Last Titration: 08/20/20 17:14 Dose: 100 mcg/hr, 20 mls/hr Documented by: Pantoprazole Sodium 40 mg/ (Syringe) 10 mls @ 5 mls/min IV DAILY MARGI Stop: 09/12/20 20:59 Last Admin: 08/20/20 08:26 Dose: 5 mls/min Documented by: Midazolam HCl (Versed) 125 mg in 250 mls @ 8 mls/hr IV .[id number] PRN; Protocol PRN Reason: titration Stop: 09/18/20 09:59 Last Titration: 08/20/20 17:13 Dose: 4 mg/hr, 8 mls/hr Documented by: Levothyroxine Sodium (Levothyroxine Sodium 125 Mcg Tablet) 125 mcg PO DAILYBB [facility] Stop: 09/01/20 06:29 Last Admin: 08/20/20 05:30 Dose: 125 mcg Documented by: Metoprolol Tartrate (Metoprolol Tartrate 25 Mg Tab) 12.5 mg PO TID [facility] Stop: 09/18/20 08:59 Last Admin: 08/20/20 21:53 Dose: 12.5 mg Documented by: Midazolam HCl (Midazolam Bolus From Bag) 2 mg IV Q60M PRN PRN Reason: Sedation Stop: 09/18/20 09:52 Nutritional Formula (Peptamen Intense Vhp 1.0 Jet 1,000 Ml Bag) 1,000 ml OG UD [facility]; Protocol Stop: 09/19/20 16:29 Last Admin: 08/20/20 18:39 Dose: 1,000 ml Documented by: PG Care Time/CCT Total # of Minutes Spent Total Time Spent with Patient: Total time spent is greater than 50% in coordination of care (as documented) at patient's floor/unit and/or counseling patient: Coding Level of Care Code 32894 Subseq Hosp Care Lvl 1 Diagnoses Acute respiratory failure with hypoxia J96.01 Pneumonia due to COVID-19 virus U07.1; J12.89 Polycythemia vera D45 Hypothyroidism E03.9 Hypertension I10 CKD (chronic kidney disease) N18.9 Melena K92.1 BPH (benign prostatic hyperplasia) N40.0 DVT prophylaxis Z29.9
[2020-08-21] MEDS: fentaNYL DRIP 1,250 MCG/250 ML BAG IV SCH ×2 (01:17→08:00)
[2020-08-21] MEDS ORDERED: VECURONIUM BROMIDE 10 MG VIAL IV STA (02:27)
[2020-08-21 05:43] LABS: Hematocrit (blood only) 43.7 % (42-52); Hemoglobin 14.2 g/dL (14.0-18.0); Mean Corpuscular Hgb Conc 32.5 g/dL (32-36); Mean Corpuscular Volume 110.9 fL (80-100); Mean Platelet Volume 11.8 fL (7.4-10.4); Platelet Count 333 K/uL (130-400); RDW Coefficient of Variation 14.9 % (11.5-14.5); RDW Standard Deviation 60.7 fL (36.4-46.3); Red Blood Count 3.94 M/uL (4.7-6.1); White Blood Count 30.55 K/uL (4.8-10.8)
[2020-08-21 05:44] LABS: ANC (manual) 27.22 K/uL (1.4-6.5); Macrocytosis Present; Monocytes # (manual) 3.33 K/uL (0.11-0.59); Monocytes % (manual) 10.9 %; Neutrophils # (manual) 27.22 K/uL (1.4-6.5); Neutrophils % (manual) 89.1 %
[2020-08-21 05:53] LABS: BUN Creatinine Ratio 31.1 (10-20); Calcium 8.6 mg/dl (8.5-10.1); Creatinine Clr Calc Pharmacy 55.8 ml/min; Est GFR (African American) 68.6; Est GFR (Non-African American) 59.2; Magnesium 2.5 mg/dl (1.8-2.4); Potassium 4.3 mmol/L (3.5-5.1)
[2020-08-21] MEDS: LEVOTHYROXINE SODIUM 125 MCG TABLET PO SCH (06:10)
[2020-08-21 06:35] LABS: Phosphorus 3.6 mg/dl (2.5-4.9)
[2020-08-21] MEDS: METOPROLOL TARTRATE 25 MG TAB PO SCH ×4 (08:01→20:19)
[2020-08-21] MEDS: ASPIRIN 81 MG CHEW GT SCH (08:01)
[2020-08-21] MEDS: ENOXAPARIN INJ 40 MG/0.4 ML SYR SQ SCH ×2 (08:02→20:20)
[2020-08-21] MEDS: PANTOprazole 40 MG in SYRINGE 0 ML IV SCH (08:02)
[2020-08-21] MEDS: MIDAZOLAM HCL 125 MG/250 ML BAG IV PRN (08:10)
[2020-08-21] MEDS: CISATRACURIUM BESYLATE 40 MG in 0.9 % SODIUM CHLORIDE 80 ML IV SCH ×8 (08:34→13:37)
[2020-08-21] MEDS: NOREPINEPHRINE/D5W 8 MG/508 ML BAG IV SCH ×2 (08:34→08:35)
--- NOTE | 2020-08-21 10:26 | Critical Care Progress Note ---
Date of Service August 21, 2020 Assessment & Plan (1) Acute respiratory failure with hypoxia: Neurologic: Toxic metabolic encephalopathy -Sedation vacation while supine -Previously on a course of neuromuscular blockade as well as steroids Pulmonary: Acute hypoxic respiratory failure: Severe hypoxic respiratory failure -Outside of 2-week window for Meduri protocol -High PEEP low FiO2 table: PEEP of 14 FiO2 100%, patient's ventilatory requirements are worsening -Compliance has worsened he was not responding to pronation therapy will not continue pronation. Cardiovascular: Paroxysmal atrial fibrillation with rapid ventricular response -Obtain echo given new onset A. fib -Echo can wait until patient is recovered adequately from COVID-19 to minimize staff exposure given pandemic situations -Patient appears to be transitioning in and out of atrial fibrillation he has significant comorbidities I believe the risk of stroke is much less than risk of iatrogenic bleeding and therefore will transition to DVT prophylaxis from full anticoagulation. -Amiodarone bolus and infusion Gastrointestinal: Continue Protonix daily. -Tube feeds tolerating continuous at 30 will be increasing Renal: Lovenox: COVID-19 dosing Infectious disease: Febrile illness -Sputum culture, blood culture urine culture bio fire -Cefepime Vanco for possible ventilator associated event Hematologic: He has a history of polycythemia vera. Continue Lovenox 40 mg twice daily: COVID-19 dosing. Endocrine: Insulin protocol per ICU. Continue levothyroxine. Lines and tubes: Peripheral IVs, right IJ and right radial line in place. VTE prophylaxis: 40 mg Lovenox twice daily CODE STATUS: Full code. Family at bedside: None available due to the COVID-19 pandemic Disposition: His prognosis is extremely poor. He is to remain in the ICU. (2) Palliative care encounter: (3) Acute respiratory failure with hypoxemia: (4) Pneumonia due to COVID-19 virus: (5) Shock: Admission and Anticipated Discharge Date Admission Date: August 01, 2020 Supervising Physician Co-Signing Physician Notes I was present and assisted with the pronating process. Patient tolerated the pronating movement. Patient was discussed in multidisciplinary rounds. I have personally spent 55 minutes of critical care time in the direct management of this patient. This is a life/limb threatening event. This includes time spent evaluating patient, direct bedside care, chart review, placing orders, interpretation of diagnostic studies, discussion with consultants, patient, and/or family members regarding treatment decisions, as well as other required patient management activities. This time is exclusive of all separately billable procedures, and teaching time and separate from and in addition to any other critical care service time. Subjective Overnight patient was breath stacking reinitiated neuromuscular blockade and since then patient has improved Review of Systems Review of Systems: Unobtainable due to endotracheal tube Physical Exam Physical Exam: General: Sedated Glascow Coma Scale: Eyes: 2, Verbal 1T, Motor 5, Total 8T nontoxic. Skin: Warm, dry, Head: Atraumatic Ears, nose, mouth and throat: Obscured by endotracheal tube Cardiovascular: Normal peripheral perfusion Respiratory: Ventilator settings reviewed Gastrointestinal: Non distended, no involuntary guarding Musculoskeletal: No deformity Results & Data Results & Data ([facility]) Vital Signs (Past 12 Hours) Vital Signs Temp Pulse Resp BP Pulse Ox 08/21/20 08:04 141 H 24 91 08/21/20 06:30 39.0 C H 138 H 90 08/21/20 06:05 39.1 C H 143 H 121/66 90 08/21/20 06:00 39.1 C H 138 H 89 L 08/21/20 05:35 39.3 C H 140 H 128/75 88 L 08/21/20 05:30 39.3 C H 153 H 88 L 08/21/20 05:05 39.4 C H 139 H 123/72 89 L 08/21/20 05:00 39.4 C H 143 H 88 L 08/21/20 04:35 39.4 C H 151 H 116/66 89 L 08/21/20 04:30 39.4 C H 147 H 90 08/21/20 04:05 39.3 C H 152 H 153/70 H 92 08/21/20 04:00 39.3 C H 145 H 92 08/21/20 03:35 39.0 C H 139 H 22 161/83 H 93 08/21/20 03:30 39.0 C H 141 H 94 08/21/20 03:05 38.7 C H 152 H 179/86 H 93 08/21/20 03:00 38.6 C H 138 H 93 08/21/20 02:35 38.2 C H 131 H 192/121 H 92 08/21/20 02:33 38.2 C H 141 H 160/117 H 89 L 08/21/20 02:30 38.1 C H 138 H 71 L 08/21/20 02:22 37.9 C H 131 H 158/108 H 71 L 08/21/20 02:06 37.7 C H 122 H 180/107 H 90 08/21/20 02:00 37.7 C H 107 H 96 08/21/20 01:35 37.6 C H 105 H 128/62 94 08/21/20 01:30 37.6 C H 101 H 93 08/21/20 01:05 37.5 C 97 H 162/71 H 92 08/21/20 01:00 37.5 C 102 H 90 08/21/20 00:35 37.4 C 99 H 153/80 H 91 08/21/20 00:30 37.4 C 93 H 90 08/21/20 00:06 37.4 C 96 H 181/86 H 93 08/21/20 00:00 37.5 C 92 H 96 08/20/20 23:58 104 H 26 H 96 08/20/20 23:36 37.5 C 90 171/83 H 97 08/20/20 23:30 37.5 C 93 H 97 08/20/20 23:05 37.5 C 96 H 141/67 H 97 08/20/20 23:00 37.5 C 101 H 97 08/20/20 22:35 37.5 C 105 H 131/58 L 96 08/20/20 22:30 37.5 C 106 H 96 Laboratory Results 08/21/20 08/21/20 08/20/20 Range/Units 04:57 04:57 11:39 WBC 30.55 H* (4.8-10.8) K/uL RBC 3.94 L (4.7-6.1) M/uL Hgb 14.2 (14.0-18.0) g/dL Hct 43.7 (42-52) % MCV 110.9 H (80-100) fL MCH 36.0 H (25-34) pg MCHC 32.5 (32-36) g/dL RDW Std Deviation 60.7 H (36.4-46.3) fL RDW Coeff of Richard 14.9 H (11.5-14.5) % Plt Count 333 D (130-400) K/uL MPV 11.8 H (7.4-10.4) fL Neutrophils % (Manual) 89.1 % Lymphocytes % (Manual) 0.0 % Monocytes % (Manual) 10.9 % Neutrophils # (Manual) 27.22 H (1.4-6.5) K/uL Total Absolute Neuts 27.22 H (1.4-6.5) K/uL Total Abs Lymphocytes 0.00 L (1.2-3.4) K/uL Monocytes # (Manual) 3.33 H (0.11-0.59) K/uL Macrocytosis Present Sodium 136 (136-145) mmol/L Potassium 4.3 (3.5-5.1) mmol/L Chloride 102 (98-107) mmol/L Carbon Dioxide 31 (21-32) mmol/L Anion Gap 3.0 (3-11) BUN 37 H (7-18) mg/dl Creatinine 1.18 (0.6-1.4) mg/dl Est Cr Clr Drug Dosing 55.8 ml/min Est GFR ( Amer) 68.6 Est GFR (Non-Af Amer) 59.2 BUN/Creatinine Ratio 31.1 H (10-20) Glucose 111 H (70-99) mg/dl POC Glucose 122 H (70-99) mg/dl Calcium 8.6 (8.5-10.1) mg/dl Phosphorus 3.6 D (2.5-4.9) mg/dl Magnesium 2.5 H (1.8-2.4) mg/dl Diagnostic Findings EKG reviewed I believe the patient is converting in and out of normal sinus rhythm and atrial fibrillation. Normal axis there are frequent PVCs this is an abnormal EKG. Coding Level of Care Code Critical Care 1st 30-74 mins Diagnoses Acute respiratory failure with hypoxia J96.01 Palliative care encounter Z51.5 Acute respiratory failure with hypoxemia J96.01 Pneumonia due to COVID-19 virus U07.1; J12.89 Shock R57.9
--- NOTE | 2020-08-21 10:59 | XRay Report ---
XR chest 1V portable CLINICAL HISTORY: Respiratory failure COMPARISON STUDY: 08/19/2020 FINDINGS: There is an endotracheal tube, 7 cm above the ashwin. There is a right internal jugular edgar tral venous catheter within the superior vena cava. There is a nasogastric tube which passes into the stomach. No pneumothorax is visualized on the supine study. There are persistent bilateral pulmonary airspace opacities relatively similar to the prior study.[ IMPRESSION: 1. Persistent bilateral pulmonary airspace opacities. ACT 112: Negative or not required by law. Electronically signed by: James Patricia M.D. 08/21/2020 10:58 AM
[2020-08-21] MEDS ORDERED: 0.2 MICRON FILTER SET 1 EA IV ONE (11:00)
[2020-08-21] MEDS ORDERED: AMIODARONE / D5W 150 MG/100 ML BAG IV ONE (11:00)
[2020-08-21] MEDS ORDERED: AMIODARONE / D5W 360 MG/200 ML BAG IV SCH (11:10)
[2020-08-21] MEDS: CEFEPIME 2,000 MG in SYRINGE 0 ML IV SCH (11:47)
[2020-08-21] MEDS ORDERED: VANCOMYCIN HCL 1,750 MG in SODIUM CHLORIDE 0.9% 500 ML IV ONE (12:00)
[2020-08-21 12:50] LABS: Adenovirus PCR Not Detected (NotDetected); Bordetella parapertussis PCR Not Detected (NotDetected); Bordetella pertussis PCR Not Detected (NotDetected); Chlamydia pneumoniae PCR Not Detected (NotDetected); Coronavirus 229E PCR Not Detected (NotDetected); Coronavirus HKU1 PCR Not Detected (NotDetected); Coronavirus NL63 PCR Not Detected (NotDetected); Coronavirus OC43PCR Not Detected (NotDetected); Human Metapneumovirus PCR Not Detected (NotDetected); Influenza A PCR Not Detected (NotDetected); Influenza B PCR Not Detected (NotDetected); Mycoplasma pneumoniae PCR Not Detected (NotDetected); Parainfluenza Virus 1 PCR Not Detected (NotDetected); Parainfluenza Virus 2 PCR Not Detected (NotDetected); Parainfluenza Virus 3 PCR Not Detected (NotDetected); Parainfluenza Virus 4 PCR Not Detected (NotDetected); Respiratory Syncytial VirusPCR Not Detected (NotDetected); Rhinovirus/Enterovirus PCR Not Detected (NotDetected)
[2020-08-21] MEDS ORDERED: VANCOMYCIN CONSULT ACTIVE PRN (13:14)
[2020-08-21 13:15] LABS: Coronavirus CoV-2 (COVID19)PCR DETECTED (NotDetected)
--- NOTE | 2020-08-21 14:11 | Electrocardiogram Report ---
Test Reason : Blood Pressure : / mmHG Vent. Rate : 139 BPM Atrial Rate : 141 BPM P-R Int : 156 ms QRS Dur : 078 ms QT Int : 254 ms P-R-T Axes : 066 035 067 degrees QTc Int : 386 ms Sinus tachycardia with frequent , and consecutive Premature ventricular complexes Otherwise normal ECG When compared with ECG of 18-AUG-2020 20:37, ST no longer depressed in Inferior leads ST no longer depressed in Lateral leads Nonspecific T wave abnormality no longer evident in Inferior leads Nonspecific T wave abnormality no longer evident in Lateral leads Confirmed by Patrick Auguste ([id number]) on 08/21/2020 2:10:36 PM Referred By: REFERRED SELF Confirmed By:Patrick Auguste
--- NOTE | 2020-08-21 15:49 | Pharmacy Report ---
Pharmacy Abx Dose Short Note - Date of Service August 21, 2020 - Assessment & Plan Assessment * 75 year old M receiving VANCOMYCIN + CEFEPIME for new onset fever, leukocytosis - possible healthcare acquired infxn (pneumonia, UTI, line infxn) * Patient does have risk factors for resistant organism: receipt of broad spectrum abx in last 3 months, > 5 days hospitalization, etc * BLCXs, Urine Cx, Sputum Cx and Biofire ordered * Biofire + COVID, but negative for all other organisms on panel * MRSA nasal swab negative - lessening the risk of MRSA PNA, however does not r/o out non-pulm MRSA infxn * Renal fxn appears to be stable, SCr 1.18, UOP ~0.5ml/kg/hr Plan Vancomycin * Patient meets criteria for vancomycin AUC dosing nomogram * AUC/ERIKA is the preferred PK/PD target for vancomycin * Target AUC/ERIKA = 400-600 * Trough level of ~15-16 mcg/mL is predicted to achieve target AUC/ERIKA * AUC guided dosing is effective and associated with decreased risk of nephrotoxicity Cefepime * eCrCl 30-60cc/min; 2gm IV Q 12 hrs recommended as max dose for this degree of renal fxn Pharmacy will continue to follow and will adjust dose/frequency as necessary. Thank you.
[2020-08-21] MEDS ORDERED: CEFEPIME CONSULT ACTIVE PRN (16:08)
[2020-08-21] MEDS: AMIODARONE / D5W 360 MG/200 ML BAG IV SCH (17:27)
[2020-08-22] MEDS ORDERED: VANCOMYCIN HCL 1,000 MG in SODIUM CHLORIDE 0.9% 250 ML IV SCH
[2020-08-22] MEDS: CEFEPIME 2,000 MG in SYRINGE 0 ML IV SCH (00:23)
[2020-08-22] MEDS: fentaNYL DRIP 1,250 MCG/250 ML BAG IV SCH ×2 (00:23→08:12)
[2020-08-22 04:16] LABS: Hematocrit (blood only) 37.8 % (42-52); Hemoglobin 12.2 g/dL (14.0-18.0); Mean Corpuscular Hemoglobin 35.8 pg (25-34); Mean Corpuscular Hgb Conc 32.3 g/dL (32-36); Mean Corpuscular Volume 110.9 fL (80-100); Mean Platelet Volume 11.5 fL (7.4-10.4); Platelet Count 230 K/uL (130-400); RDW Coefficient of Variation 15.4 % (11.5-14.5); RDW Standard Deviation 62.3 fL (36.4-46.3); Red Blood Count 3.41 M/uL (4.7-6.1)
[2020-08-22 04:35] LABS: BUN Creatinine Ratio 23.2 (10-20); Calcium 8.5 mg/dl (8.5-10.1); Creatinine Clr Calc Pharmacy 26.4 ml/min; Est GFR (African American) 24.9; Est GFR (Non-African American) 21.5; Magnesium 2.9 mg/dl (1.8-2.4); Phosphorus 5.6 mg/dl (2.5-4.9); Potassium 5.5 mmol/L (3.5-5.1)
[2020-08-22 04:55] LABS: Basophils # (auto) 0.02 K/uL (0-0.2); Basophils % (auto) 0.1 %; Eosinophils # (auto) 0.02 K/uL (0-0.5); Eosinophils % (auto) 0.1 %; Immature Granulocytes % (auto) 0.5 %; Lymphocytes % (auto) 8.1 %; Macrocytosis Present; Monocytes % (auto) 5.4 %; Neutrophils # (auto) 18.96 K/uL (1.4-6.5); Neutrophils % (auto) 85.8 %
[2020-08-22] MEDS: AMIODARONE / D5W 360 MG/200 ML BAG IV SCH (05:25)
[2020-08-22 05:49] LABS: iSTAT Allen Test Pass; iSTAT Art Bld Gas pCO2 Correct 60 mmHg (35-46); iSTAT Arterial Blood Gas HCO3 27 meg/L (19-24); iSTAT Arterial Blood Gas pCO2 62 mmHg (35-46); iSTAT Arterial Blood Gas pH 7.24 (7.35-7.45); iSTAT Arterial Blood Gas pO2 64 mmHg (80-95); iSTAT Arterial Blood Gas pO2 C 61; iSTAT Carbon Dioxide 28 mmol/L (24-31); iSTAT FiO2 50 %; iSTAT Hematocrit 37 % (42-52); iSTAT Hemoglobin 12.6 g/dl (14.0-18.0); iSTAT Potassium 5.4 mmol/L (3.3-5.0); iSTAT Site R Radial; iSTAT Sodium 135 mmol/L (135-144)
[2020-08-22] MEDS: LEVOTHYROXINE SODIUM 125 MCG TABLET PO SCH (05:55)
--- NOTE | 2020-08-22 07:42 | XRay Report ---
XR chest 1V portable CLINICAL HISTORY: Respiratory failure COMPARISON STUDY: 08/21/2020 FINDINGS: There is an endotracheal tube 4 cm above the ashwin. There is a right internal jugular cent ral venous catheter unchanged in position. There is a nasogastric tube which passes into the stomach. There are persistent bilateral pulmonary airspace opacities consistent with a multifocal pneumonia.[ IMPRESSION: Stable findings. Persistent bilateral pulmonary airspace opacities. ACT 112: Negative or not required by law. Electronically signed by: James Patricia M.D. 08/22/2020 7:41 AM
[2020-08-22] MEDS: PEPTAMEN INTENSE VHP 1.0 CAL 1,000 ML BAG OG SCH (08:11)
[2020-08-22] MEDS: ASPIRIN 81 MG CHEW GT SCH (08:12)
[2020-08-22] MEDS: METOPROLOL TARTRATE 25 MG TAB PO SCH ×2 (08:12→13:56)
[2020-08-22] MEDS: ENOXAPARIN INJ 40 MG/0.4 ML SYR SQ SCH (08:13)
[2020-08-22] MEDS: PANTOprazole 40 MG in SYRINGE 0 ML IV SCH (08:13)
--- NOTE | 2020-08-22 15:26 | Palliative Care Progress Note ---
Date of Service August 22, 2020 Assessment & Plan (1) Palliative care encounter: All three adult children: Bimal Cr, and Demian presented to [facility]. All had clearance and screening for covid-19 upon entry to the hospital. I personally walked them back the ICU and provided a window visit for them, explaining everything that their father was attached to. All questions answered and end of life details discussed. All three family members in full agreement for compassionate extubation. Patient was extubated by RT and Asya Finney in the room. Patient was extubated to 2LNC at.....All non comfort focused medications were discontinued, including vital signs,and blood draws. Life expec tancy minutes to hours. It has been a pleasure being involved with Mr. Bunn. (2) Pneumonia due to COVID-19 virus: Admission and Anticipated Discharge Date Admission Date: August 01, 2020 Subjective Pt unchanged. No signs of progress with care. Awaiting family to arrive for terminal extubation. See A/P for further details Review of Systems Review of Systems: Unobtainable due to endotracheal tube Physical Exam Physical Exam: deferred to head waiter due to covid-19 Results & Data ([facility]) Vital Signs (Past 12 Hours) Vital Signs Temp Pulse Resp BP Pulse Ox 08/22/20 11:00 36.5 C 80 94 08/22/20 10:44 36.5 C 83 128/52 L 94 08/22/20 10:36 84 22 93 08/22/20 10:06 36.4 C L 64 103/57 L 94 08/22/20 10:00 36.4 C L 0 L 93 08/22/20 09:36 36.4 C L 81 112/52 L 94 08/22/20 09:06 36.3 C L 82 115/53 L 94 08/22/20 09:00 36.3 C L 83 94 08/22/20 08:52 84 22 93 08/22/20 08:36 36.4 C L 77 132/65 91 08/22/20 08:06 36.3 C L 82 113/56 L 94 08/22/20 08:00 36.3 C L 81 94 08/22/20 07:36 36.3 C L 82 123/63 94 08/22/20 07:06 36.3 C L 83 115/64 93 08/22/20 07:00 36.3 C L 83 93 08/22/20 06:00 36.2 C L 84 93 08/22/20 05:36 36.3 C L 80 142/62 H 93 08/22/20 05:06 36.3 C L 81 124/57 L 91 08/22/20 05:00 36.3 C L 83 92 08/22/20 04:36 36.3 C L 81 119/60 92 08/22/20 04:06 36.4 C L 84 131/57 L 93 08/22/20 04:00 36.4 C L 80 93 08/22/20 03:36 36.5 C 88 123/58 L 92 08/22/20 03:30 90 22 92 PG Care Time/CCT Total # of Minutes Spent Total Time Spent with Patient: Total time spent is greater than 50% in coordination of care (as documented) at patient's floor/unit and/or counseling patient: 45 Coding Level of Care Code 41050 Subseq Hosp Care Lvl 3 Diagnoses Palliative care encounter Z51.5 Pneumonia due to COVID-19 virus U07.1; J12.89 Time Spent (min) 45 Time Spent Midlevel Total time spent 45 minutes with > 50% of that time spent discussing current plan of care, communicating with family and collaborating with IDT
--- NOTE | 2020-08-22 16:26 | Critical Care Progress Note ---
Date of Service August 22, 2020 Assessment & Plan (1) Acute respiratory failure with hypoxia: Neurologic: Toxic metabolic encephalopathy -Sedation vacation while supine -Previously on a course of neuromuscular blockade as well as steroids Pulmonary: Acute hypoxic respiratory failure: Severe hypoxic respiratory failure -Outside of 2-week window for Meduri protocol -High PEEP low FiO2 table: PEEP of 14 FiO2 100%, patient's ventilatory requirements are worsening -Compliance has worsened he was not responding to pronation therapy will not continue pronation. Cardiovascular: Paroxysmal atrial fibrillation with rapid ventricular response -Obtain echo given new onset A. fib -Echo can wait until patient is recovered adequately from COVID-19 to minimize staff exposure given pandemic situations -Patient appears to be transitioning in and out of atrial fibrillation he has significant comorbidities I believe the risk of stroke is much less than risk of iatrogenic bleeding and therefore will transition to DVT prophylaxis from full anticoagulation. -Amiodarone bolus and infusion Gastrointestinal: Continue Protonix daily. -Tube feeds tolerating continuous at 30 will be increasing Renal: Lovenox: COVID-19 dosing Infectious disease: Febrile illness -Sputum culture, blood culture urine culture bio fire -Cefepime Vanco for possible ventilator associated event Hematologic: He has a history of polycythemia vera. Continue Lovenox 40 mg twice daily: COVID-19 dosing. Endocrine: Insulin protocol per ICU. Continue levothyroxine. Lines and tubes: Peripheral IVs, right IJ and right radial line in place. VTE prophylaxis: 40 mg Lovenox twice daily CODE STATUS: Full code. Family at bedside: None available due to the COVID-19 pandemic Disposition: His prognosis is extremely poor. He is to remain in the ICU. (2) Palliative care encounter: (3) Acute respiratory failure with hypoxemia: (4) Pneumonia due to COVID-19 virus: (5) Shock: Admission and Anticipated Discharge Date Admission Date: August 01, 2020 Supervising Physician Co-Signing Physician Notes Patient was discussed in multidisciplinary rounds. I have personally spent 35 minutes of critical care time in the direct ma nagement of this patient. This is a life/limb threatening event. This includes time spent evaluating patient, direct bedside care, chart review, placing orders, interpretation of diagnostic studies, discussion with consultants, patient, and/or family members regarding treatment decisions, as well as other required patient management activities. This time is exclusive of all separately billable procedures, and teaching time and separate from and in addition to any other critical care service time. At this time we anticipate family arriving sometime after 1 PM and will likely proceed with terminal extubation Subjective No overnight events, minimal improvement in patient's ventilator settings Physical Exam Physical Exam: General: Sedated Glascow Coma Scale: Eyes: 2, Verbal 1T, Motor 5, Total 8T nontoxic. Skin: Warm, dry, Head: Atraumatic Ears, nose, mouth and throat: Obscured by endotracheal tube Cardiovascular: Normal peripheral perfusion Respiratory: Ventilator settings reviewed Gastrointestinal: Non distended, no involuntary guarding Musculoskeletal: No deformity Results & Data Results & Data ([facility]) Vital Signs (Past 12 Hours) Vital Signs Temp Pulse Resp BP Pulse Ox 08/22/20 08:52 84 22 93 08/22/20 06:00 36.2 C L 84 93 08/22/20 05:36 36.3 C L 80 142/62 H 93 08/22/20 05:06 36.3 C L 81 124/57 L 91 08/22/20 05:00 36.3 C L 83 92 08/22/20 04:36 36.3 C L 81 119/60 92 08/22/20 04:06 36.4 C L 84 131/57 L 93 08/22/20 04:00 36.4 C L 80 93 08/22/20 03:36 36.5 C 88 123/58 L 92 08/22/20 03:30 90 22 92 08/22/20 03:06 36.5 C 82 116/59 L 93 08/22/20 03:00 36.5 C 81 92 08/22/20 02:36 36.5 C 84 118/55 L 93 08/22/20 02:06 36.5 C 84 111/60 93 08/22/20 02:00 36.5 C 81 92 08/22/20 01:36 36.5 C 84 105/58 L 92 08/22/20 01:06 36.5 C 88 125/58 L 92 08/22/20 01:00 36.5 C 84 92 08/22/20 00:36 36.6 C 85 120/59 L 92 08/22/20 00:06 36.5 C 84 113/60 92 08/22/20 00:00 36.5 C 81 92 12/09/20 23:36 36.5 C 91 H 127/60 93 08/21/20 23:15 85 22 92 08/21/20 23:06 36.5 C 91 H 122/58 L 92 08/21/20 23:00 36.5 C 90 92 08/21/20 22:36 36.5 C 83 124/56 L 92 08/21/20 22:05 36.5 C 83 119/61 91 08/21/20 22:00 36.5 C 84 92 Coding Level of Care Code Critical Care 1st 30-74 mins Diagnoses Acute respiratory failure with hypoxia J96.01 Palliative care encounter Z51.5 Acute respiratory failure with hypoxemia J96.01 Pneumonia due to COVID-19 virus U07.1; J12.89 Shock R57.9
[2020-08-22] MEDS ORDERED: CEFEPIME 2,000 MG in SYRINGE 0 ML IV SCH (18:00)
--- NOTE | 2020-08-22 21:59 | Discharge Summary ---
Date of Service August 22, 2020 Admission HPI Per Admitting Provider The patient is a 74-year-old male with a past medical history including allergic rhinitis, asthma, BPH with LUTS, lumbar degenerative disc disease, diverticulosis, GERD, hypercholesterolemia, hypertension, hypothyroidism, organic impotence, mild obstructive sleep apnea, polycythemia vera and vitamin D deficiency. The patient had initially undergone a telephone conference, and a Covid test was ordered and he was placed on an empiric course with Augmentin. The patient also reports a brief syncopal episode as he was getting up from a seated position. He does not have any of symptoms related to seizures. He has had decreased oral intake over the past several days because of symptoms as noted. He does also report some occasional loose stools that are nonbloody Principal Diagnosis COVID 19 pneumonia with acute hypoxic respiratory failure Discharge Exam no pulse, not breathing, no heart sounds, no breath sounds, pupils fixed, unresponsive Discharge Data Allergies Allergy/AdvReac Type Severity Reaction Status Date / Time irbesartan Allergy Severe ANGIOEDEMA Verified 08/01/20 15:50 amlodipine Allergy Unknown ITCHING, Verified 08/01/20 15:50 RASH ON ANKLES Consultations 08/01/20 15:53 ED Decision to Admit Stat 08/01/20 21:23 Consult Case Management - Discharge Planning Routine 08/07/20 14:11 Consult Palliative Care Routine 08/13/20 12:17 Consult Pulmonology Routine Ordered Studies 08/15/20 16:27 US point of care ultrasound Routine Hospital Course (1) Acute respiratory failure with hypoxia: Pt was intubated 08/15/20 with inability to sustain hypoxia with highflow 60 liters and 15l oxymask on top of it CXR with worsening b/l pneumonia / developing ARDS, added antibiotics for concern for secondary infection Gram negative after decompensaiton and progression of cxr changes did have increased leukocytosis and mild procal - placed on Cefepime IV decadron 6mg daily, stopped by pulmonary critical care s/p plasma on 08/02/20. Remdesivir - completed 10 d course patient failed to improved after a week on the ventilator with intermittent proning family meeting with critical care and palliative care on 08/21 family all agreed to extubate patient on 08/22 patient today after extubation (2) Pneumonia due to COVID-19 virus: see "resp failure" above. requiring intubation 08/15/20 completed full course of both Remdesivir and decadron covered for secondary bacterial infections unfortunately he deteriorated despite treatment on 08/22 after terminal extubation (3) Polycythemia vera: treated with hydroxyurea. H/H and platelets were acceptable during admission (4) Hypothyroidism: Continued levothyroxine 125 mcg daily while here (5) Hypertension: required pressor support while intubated (6) CKD (chronic kidney disease): stage 3, developed mild DISHA due to critical illness (7) Melena: concern for such earlier this stay. however, stool was heme negative. H/H stable/acceptable. (8) BPH (benign prostatic hyperplasia): previously on finasteride now has gay cath (9) DVT prophylaxis: lovenox 40mg daily during stay Total Time Total Time Spent Total Time Spent (In Minutes): 10 Total Time Includes: Examination of the Patient Discharge Plan Discharge Items Patient Disposition: Coding Level of Care Code D/C Day Management <30 mins Diagnoses Acute respiratory failure with hypoxia J96.01 Pneumonia due to COVID-19 virus U07.1; J12.89 Polycythemia vera D45 Hypothyroidism E03.9 Hypertension I10 CKD (chronic kidney disease) N18.9 Melena K92.1 BPH (benign prostatic hyperplasia) N40.0 DVT prophylaxis Z29.9
[2020-08-23] MEDS ORDERED: ENOXAPARIN INJ 40 MG/0.4 ML SYR SQ SCH (09:00)
--- NOTE | 2020-08-25 22:16 | Hospitalist Progress Note ---
Date of Service August 21, 2020 Assessment & Plan (1) Acute respiratory failure with hypoxia: Pt was intubated 08/15/20 with inability to sustain hypoxia with highflow 60 liters and 15l oxymask on top of it CXR with worsening b/l pneumonia / developing ARDS, added antibiotics for concern for secondary infection Gram negative after decompensaiton and progression of cxr changes did have increased leukocytosis and mild procal - placed on Cefepime IV decadron 6mg daily, stopped by pulmonary critical care s/p plasma on 08/02/20. Remdesivir - completed 10 d course patient failed to improved after a week on the ventilator with intermittent proning family meeting with critical care and palliative care on 08/21 family all agreed to extubate patient on 08/22, will plan this per Dr. Vázquez (2) Pneumonia due to COVID-19 virus: see "resp failure" above. requiring intubation 08/15/20 completed full course of both Remdesivir and decadron covered for secondary bacterial infections unfortunately he deteriorated despite treatment plan for terminal extubation 08/22 (3) Polycythemia vera: treated with hydroxyurea. H/H and platelets were acceptable during admission (4) Hypothyroidism: Continued levothyroxine 125 mcg daily while here (5) Hypertension: required pressor support while intubated (6) CKD (chronic kidney disease): stage 3, developed mild DISHA due to critical illness (7) Melena: concern for such earlier this stay. however, stool was heme negative. H/H stable/acceptable. (8) BPH (benign prostatic hyperplasia): previously on finasteride now has gay cath (9) DVT prophylaxis: lovenox 40mg daily during stay Admission and Anticipated Discharge Date Admission Date: August 01, 2020 Subjective discussed with palliative care family meeting held, decided to terminally extubate patient as he is not improving on ventilator plan to do this on 08/22 Review of Systems Review of Systems: Unobtainable due to endotracheal tube and Unobtainable due to reduced consciousness Physical Exam Constitutional: well developed, + ill appearing and + mechanically ventilated (prone) Neck: trachea midline, no thyromegaly Respiratory: symmetric chest movement; no respiratory distress Auscultation: lungs clear to auscultation bilaterally; no crackles, no rales, no rhonchi and no wheezes Cardiovascular: RRR, no murmur, no edema Gastrointestinal (Abdomen): normal bowel sounds, soft, nontender, no hepatosplenomegaly Skin: no rashes, warm and dry Neurologic: + obtunded Psychiatric: Orientation: + not alert Lymphatic: no cervical or axillary lymphadenopathy PG Care Time/CCT Total # of Minutes Spent Total Time Spent with Patient: Total time spent is greater than 50% in coordination of care (as documented) at patient's floor/unit and/or counseling patient: Coding Level of Care Code 28616 Subseq Hosp Care Lvl 1 Diagnoses Acute respiratory failure with hypoxia J96.01 Pneumonia due to COVID-19 virus U07.1; J12.89 Polycythemia vera D45 Hypothyroidism E03.9 Hypertension I10 CKD (chronic kidney disease) N18.9 Melena K92.1 BPH (benign prostatic hyperplasia) N40.0 DVT prophylaxis Z29.9
== END 2020-08-22 16:05 | disposition expired | DRG 207 ==
LOC: ED 14:18 → SUATTDRO 19:33 → 2S 19:33 → 2E 08-15 11:41 → 1E 08-15 15:05